=== PATIENT | male | born 1970 | race Caucasian/White ===

== ENCOUNTER 2020-07-13 07:55 | Outpatient (REF) | payer OTHER, SELFPAY ==
[2020-07-13 08:51] LABS: MANUAL DIFF FLAG NO
[2020-07-13 08:52] LABS: Basophils Percent Auto 0.7 % (0-2); Eosinophils Absolute Auto 0.2 X10*3/uL (0.0-0.4); Eosinophils Percent Auto 4.3 % (0-4); Hematocrit 45.1 % (42-52); Hemoglobin 15.5 g/dl (14.0-18.0); Lymphocytes Percent Auto 37.4 % (20-40); Mean Corpuscular HGB Conc 34.4 g/dl (31.0-36.0); Mean Corpuscular Hemoglobin 25.6 pg (27.0-33.0); Mean Corpuscular Volume 74.4 fL (80-98); Mean Platelet Volume 9.9 fL (9.4-12.4); Monocytes Absolute Auto 0.4 X10*3/uL (0.1-1.2); Monocytes Percent Auto 8.2 % (2-11); Neutrophils Absolute Auto 2.7 X10*3/uL (2.0-8.3); Neutrophils Percent Auto 49.4 % (45-73); Platelet Count 244 X10*3/uL (160-400); Red Blood Count 6.06 X10*6/uL (4.60-5.80); Red Cell Distribution Width 14.8 % (11.0-16.0); White Blood Count 5.4 X10*3/uL (4.8-10.8)
[2020-07-13 09:17] LABS: Alanine Aminotransferase 24 U/L (0-40); Albumin Level 4.7 g/dL (3.5-5.0); Alkaline Phosphatase 58 U/L (39-117); Anion Gap 13 (12-20); Aspartate Amino Transferase 22 U/L (5-37); Blood Urea Nitrogen 16 mg/dL (9-16); Calcium 9.4 mg/dL (8.4-10.2); Carbon Dioxide 25 mmol/L (22-29); Chloride 100 mmol/L (96-108); Cholesterol 200 mg/dL; Estimated Glomerular Filt Rate > 60; Glucose Fasting 309 mg/dL (60-99); HDL Cholesterol 49 mg/dL; LDL Cholesterol Calculated 129 mg/dl; Potassium 4.8 mmol/l (3.3-5.1); Sodium 133 mmol/L (135-145); Total Protein 7.7 g/dL (6.5-8.0); Triglycerides 112 mg/dL
[2020-07-13 09:21] LABS: Creatinine Urine 185.04 mg/dL; Microalbum/Creatinine Ratio Ur 95.6 ug/mg cr
[2020-07-13 09:33] LABS: Thyroid Stimulating Hormone 1.77 mIU/mL (0.32-4.0)
[2020-07-13 09:37] LABS: Estimated Average Glucose 298 mg/dL
== END 2020-07-13 07:56 | disposition home or self-care (01) ==
LOC: HO.LAB 07:55
PROVIDERS: PCP Internal Medicine; Visit Provider Internal Medicine
DX: Z00.01 Encounter for general adult medical examination with abnormal findings (principal); E11.65 Type 2 diabetes mellitus with hyperglycemia; E78.00 Pure hypercholesterolemia, unspecified; F32.89 Other specified depressive episodes
CPT/HCPCS: 36415; 80053; 80061; 82043; 83036; 84443; 85025

== ENCOUNTER 2021-03-17 06:27 | Outpatient (REF) | payer OTHER, SELFPAY ==
[2021-03-17 08:00] LABS: Estimated Average Glucose 223 mg/dL; Hemoglobin A1c % 9.4 %
[2021-03-17 08:20] LABS: Alanine Aminotransferase 31 U/L (0-40); Albumin Level 4.6 g/dL (3.5-5.0); Alkaline Phosphatase 66 U/L (39-117); Anion Gap 14 (12-20); Aspartate Amino Transferase 26 U/L (5-37); Bilirubin Total 0.7 mg/dL (0.0-1.0); Blood Urea Nitrogen 16 mg/dL (9-16); Calcium 9.5 mg/dL (8.4-10.2); Carbon Dioxide 25 mmol/L (22-29); Chloride 102 mmol/L (96-108); Cholesterol 179 mg/dL; Estimated Glomerular Filt Rate > 60; Glucose Random 240 mg/dL (60-115); HDL Cholesterol 41 mg/dL; LDL Cholesterol Calculated 110 mg/dl; Potassium 4.4 mmol/L (3.3-5.1); Sodium 137 mmol/L (135-145); Total Protein 7.3 g/dL (6.5-8.0); Triglycerides 144 mg/dL
== END 2021-03-17 06:28 | disposition home or self-care (01) ==
LOC: HO.LAB 06:27
PROVIDERS: PCP Internal Medicine; Visit Provider Internal Medicine
DX: E11.9 Type 2 diabetes mellitus without complications (principal); E78.00 Pure hypercholesterolemia, unspecified; I10 Essential (primary) hypertension; F33.41 Major depressive disorder, recurrent, in partial remission
CPT/HCPCS: 36415; 80053; 80061; 83036

== ENCOUNTER 2022-02-14 07:57 | Outpatient (REF) | payer MEDICAID, OTHER, SELFPAY ==
[2022-02-14 08:54] LABS: Estimated Average Glucose 289 mg/dL; Hemoglobin A1c % 11.7 %
[2022-02-14 09:25] LABS: Creatinine Urine 141.43 mg/dL
[2022-02-14 09:41] LABS: Alanine Aminotransferase 155 U/L (0-40); Albumin Level 4.9 g/dL (3.5-5.0); Alkaline Phosphatase 72 U/L (39-117); Anion Gap 16 (12-20); Aspartate Amino Transferase 72 U/L (5-37); Bilirubin Total 1.4 mg/dL (0.0-1.0); Blood Urea Nitrogen 25 mg/dL (9-16); Calcium 10.2 mg/dL (8.4-10.2); Carbon Dioxide 23 mmol/L (22-29); Chloride 95 mmol/L (96-108); Cholesterol 273 mg/dL; Estimated Glomerular Filt Rate > 60; Glucose Random 333 mg/dL (60-115); HDL Cholesterol 46 mg/dL; LDL Cholesterol Calculated 205 mg/dl; Potassium 4.4 mmol/L (3.3-5.1); Sodium 130 mmol/L (135-145); Triglycerides 111 mg/dL
== END 2022-02-14 07:58 | disposition home or self-care (01) ==
LOC: HO.LAB 07:57
PROVIDERS: PCP Internal Medicine; Visit Provider Internal Medicine
DX: E11.65 Type 2 diabetes mellitus with hyperglycemia (principal); F10.180 Alcohol abuse with alcohol-induced anxiety disorder
CPT/HCPCS: 36415; 80053; 80061; 82043; 83036

== ENCOUNTER 2022-05-15 09:51 | Emergency (ER) | payer OTHER, SELFPAY ==
--- NOTE | ~2022-05-15 | CT_ITS ---
EXAMINATION: CT ABDOMEN AND PELVIS WITHOUT CONTRAST CLINICAL INFORMATION: Upper abdominal tenderness. Elevated LFTs. COMPARISON: CT scan abdomen and pelvis 05/15/2022, 1:26 PM TECHNIQUE: Multidetector volumetric imaging was performed from the superior aspect of the liver through the pubic symphysis. Sagittal and coronal reformatted images were obtained on the technologist's workstation. This CT examination was performed using dose optimization techniques as appropriate, variously including the following: *Automated exposure control *Adjustment of mA and/or kV according to patient size (this includes techniques or standardized protocols for targeted exams where dose is matched to indication/reason for exam; i.e. extremities or head) *Use of iterative reconstruction technique DLP: 525 mGy-cm FINDINGS: LUNG BASES: Linear scar in the lingula. No pleural effusion. LIVER, GALLBLADDER, AND BILIARY TREE: Diffuse hypodensity of liver parenchyma due to fatty change. No focal liver lesion or intrahepatic bile duct dilatation. The gallbladder is unremarkable with no evidence of radiopaque gallstones, gallbladder wall thickening, or obvious pericholecystic inflammatory changes. PANCREAS: Redemonstration of subtle peripancreatic stranding around the tail and distal body similar prior CAT scan. Findings concerning for acute pancreatitis. No pancreatic mass or pancreatic duct dilatation. No pseudocyst formation. SPLEEN: Unremarkable. ADRENAL GLANDS: Unremarkable. KIDNEYS AND URETERS: The tiny stones in the left kidney seen on the CAT scan performed today not apparent on this exam. There is no renal or ureteral stone. There is no hydronephrosis. 1.5 cm cortical cyst right kidney. No follow-up imaging is recommended for simple renal cyst.. BLADDER: Unremarkable. GASTROINTESTINAL TRACT: The small and large bowel are unremarkable. The appendix is unremarkable. ABDOMINAL WALL: No significant hernia is appreciated. LYMPH NODES: Normal. VASCULAR: Unremarkable. PELVIC VISCERA: Unremarkable. OSSEOUS STRUCTURES: Degenerative spondylosis spine. CT/CT abdomen pelvis wo con IMPRESSION: 1. Subtle inflammatory stranding around the body and tail the pancreas consistent with pancreatitis. No significant change in appearance since prior CAT scan performed earlier today. 2. Diffuse fatty change of liver. Fleischner guidelines were followed.
--- NOTE | ~2022-05-15 | XR_ITS ---
EXAMINATION: XR CHEST CLINICAL INFORMATION: Cough, fever, rule out pneumonia COMPARISON: None TECHNIQUE: 2 views of the chest were obtained. FINDINGS: No significant abnormality is noted involving the heart, lungs, mediastinum, bony thorax or soft tissues. XR/XR chest 2V IMPRESSION: Unremarkable examination.
--- NOTE | ~2022-05-15 | CT_ITS ---
EXAMINATION: CT ABDOMEN AND PELVIS WITHOUT CONTRAST CLINICAL INFORMATION: Left-sided abdominal pain with nausea and diarrhea and fever. COMPARISON: CT of the abdomen and pelvis done on 03/19/2015. TECHNIQUE: Multidetector volumetric imaging was performed from the superior aspect of the liver through the pubic symphysis. Sagittal and coronal reformatted images were obtained on the technologist's workstation. This CT examination was performed using dose optimization techniques as appropriate, variously including the following: *Automated exposure control *Adjustment of mA and/or kV according to patient size (this includes techniques or standardized protocols for targeted exams where dose is matched to indication/reason for exam; i.e. extremities or head) *Use of iterative reconstruction technique DLP: 537 mGy-cm FINDINGS: LUNG BASES: Linear airspace disease is noted within the lingula, unchanged since prior study. There is no pleural effusion or pneumothorax present. There is no pericardial effusion present. The heart size is within normal limits. LIVER, GALLBLADDER, AND BILIARY TREE: Diffuse hepatic hypodensity consistent with hepatic steatosis is present. No superimposed focal liver lesion on this nonenhanced study. The gallbladder is unremarkable with no evidence of radiopaque gallstones, gallbladder wall thickening, or obvious pericholecystic inflammatory changes. PANCREAS: Subtle peripancreatic inflammatory stranding is noted around the tail and distal part of the body at left upper quadrant of the abdomen (116:4) with subtle thickening of the anterior left perirenal fascia. SPLEEN: Unremarkable. ADRENAL GLANDS: Unremarkable. KIDNEYS AND URETERS: The kidneys are normal in size, shape, and attenuation. No hydronephrosis or hydroureter or perinephric stranding on either side. The millimeter size punctate radiodensities are present within the left kidney, most consistent with tiny punctate nonobstructing calculi (171 and 220:4), new since prior study dated 03/19/2015. Previously documented right adrenal subtle calculi are no longer reproduced. Both ureters are decompressed. BLADDER: Unremarkable. GASTROINTESTINAL TRACT: The small and large bowel are unremarkable. The appendix is unremarkable. ABDOMINAL WALL: No significant hernia is appreciated. LYMPH NODES: Normal. VASCULAR: Unremarkable. PELVIC VISCERA: Unremarkable. There is no pelvic mass present. No evidence of any free fluid and/or free air. OSSEOUS STRUCTURES: No suspicious focal lesion. CT/CT abdomen pelvis wo con IMPRESSION: 1. Subtle inflammatory stranding is seen around the tail and distal part of the body of the pancreas at left upper quadrant of the abdomen with subtle thickening of the adjacent left anterior perirenal fascia. Clinical, lab correlation (serum lipase or amylase) as appropriate is recommended. 2. Diffuse fatty liver. 3. Tiny punctate a few radiopaque nonobstructing left renal calculi, new since prior study dated 03/19/2015.
[2022-05-15 09:58] VITALS: BP 121/85; PULSE 107; RESP 20; TEMP 36.6; O2SAT 98; BMI 30.4
[2022-05-15 13:02] LABS: MANUAL DIFF FLAG NO
[2022-05-15 13:06] LABS: Basophils Absolute Auto 0.1 X10*3/uL (0.0-0.2); Basophils Percent Auto 0.3 % (0-2); Hematocrit 48.1 % (42.0-52.0); Hemoglobin 17.1 g/dl (14.0-18.0); Imm Gran Abs Auto 0.12 X10*3/uL (0.00-0.03); Imm Gran Pct Auto 0.7 % (0.0-0.4); Lymphocytes Absolute Auto 1.3 X10*3/uL (1.2-4.9); Lymphocytes Percent Auto 7.9 % (20-40); Mean Corpuscular HGB Conc 35.6 g/dl (31.0-36.0); Mean Corpuscular Hemoglobin 25.8 pg (27.0-33.0); Mean Corpuscular Volume 72.5 fL (80.0-98.0); Mean Platelet Volume 9.5 fL (9.4-12.4); Monocytes Percent Auto 6.2 % (2-11); Neutrophils Absolute Auto 14.1 x10*3/uL (2.0-8.3); Neutrophils Percent Auto 84.9 % (45-73); Platelet Count 205 X10*3/uL (160-400); Red Blood Count 6.63 X10*6/uL (4.60-5.80); Red Cell Distribution Width 17.3 % (11.0-16.0); White Blood Count 16.6 X10*3/uL (4.8-10.8)
[2022-05-15 13:20] LABS: Alanine Aminotransferase 358 U/L (0-40); Alkaline Phosphatase 117 U/L (39-117); Anion Gap 25 (12-20); Aspartate Amino Transferase 255 U/L (5-37); Bilirubin Direct 2.3 mg/dL (0.0-0.5); Bilirubin Total 4.6 mg/dL (0.0-1.0); Blood Urea Nitrogen 15 mg/dL (9-16); Calcium 9.4 mg/dL (8.4-10.2); Carbon Dioxide 24 mmol/L (22-29); Chloride 85 mmol/L (96-108); Creatinine Clr Calc Pharmacy 66.9; Estimated Glomerular Filt Rate 56; Glucose Random 190 mg/dL (60-115); Magnesium 1.5 mg/dL (1.6-2.6); Potassium 4.2 mmol/L (3.3-5.1); Sodium 130 mmol/L (135-145); Total Protein 8.1 g/dL (6.5-8.0)
[2022-05-15 13:24] LABS: IDNOW Serial# 55D5AD1C
[2022-05-15 13:25] LABS: COVID-19 Test Negative (Negative)
--- NOTE | 2022-05-15 19:07 | ED_ITS ---
HPI - Abdominal Pain General Chief Complaint: Abdominal Pain Stated Complaint: L side abd pain Time Seen by Provider: 05/15/22 11:05 Source: patient and family (Maddie, ) Mode of arrival: ambulatory Limitations: language barrier History of Present Illness HPI narrative: 52-year-old male who presents emergency department for evaluation of abdominal pain, nausea, vomiting, intermittent fever as high as 103 degrees F and chills x3 days. Patient states that his abdominal pain came on gradually 3 days prior. He states that the pain is located in his upper abdomen. The pain is a constant, sharp, stabbing pain which waxes and wanes in intensity. States the pain can be as low as 3/10 and is currently 6/10. The pain does radiate to his upper back. He states that he has had persistent nausea with loss of appetite. States he has had several episodes of vomiting per day. Patient has had very little food to eat or drink over the past 3 days. The patient was told by his primary care doctor that he had a problem with his liver. The patient does drink 1 pt of whiskey 2 to 3 times a week. The patient's review of systems was positive for chills, rhinorrhea, sore throat, cough which is nonproductive. He states that he does feel short of breath. He had 1 loose stool yesterday. He denied bloody stools or dark black stools. MD elicited complaint: abdominal pain Onset (ago): day(s) (3) Pain Consistency: constant Location: epigastric, LUQ and RUQ Severity: moderate Pain scale (0-10): 6 Quality: stabbing Radiation: back (Mid upper back) Migration to: no migration Exacerbating factors: eating Relieving factors: nothing Associated symptoms: nausea, vomiting, diarrhea, fever, chills and other (Sore throat, rhinorrhea, dyspnea) Related Data Previous Rx's Medication Instructions Recorded omeprazole 20 mg capsule,delayed 20 mg PO DAILY 30 days #30 caps 05/15/22 release ondansetron 4 mg disintegrating 4 mg PO Q6-8H PRN nausea and 05/15/22 tablet vomiting #14 tabs Allergies Allergy/AdvReac Type Severity Reaction Status Date / Time Penicillins [PENICILLINS] Allergy Mild RASH Verified 05/15/22 19:49 sildenafil [Viagra] AdvReac Unknown flush, Verified 05/15/22 19:49 headaches PENICILLIN Allergy Unknown rash Uncoded 06/02/18 00:00 Review of Systems Review of Systems Yes all other systems are reviewed and are negative [facility] Past Medical History [facility] Narrative: Past medical history: Diabetes mellitus, hypertension, hyperlipidemia. Past curry rgical history: None. Social history: Patient denies tobacco use. The patient states that he drinks 1 pt of whiskey 2 to 3 times a week. He denies drug use. He is and he is here with his . Social History Social History Advance Directives: No Advance Directives Information Provided: Yes Physical Exam ED Vital Signs: Vital Signs - 24 hr 05/15/22 09:58 05/15/22 19:31 Temperature 97.8 F 98.3 F Pulse Rate 107 H 100 Respiratory Rate 20 18 Blood Pressure 121/85 135/90 H Pulse Oximetry 98 98 Oxygen Delivery Method Room Air Room Air BMI result Body Mass Index 30.4 Const Other: Awake, alert, male patient, very pleasant cooperative, answers all questions appropriately, does not appear to be in distress, does have ketotic odor to his breath HENMT Head: Yes normal to inspection, Yes normocephalic and Yes atraumatic Ears: external ears normal General nose exam: Normal external nose present Face and sinus: Yes normal facial exam Mouth: Normal oral and palatal mucosa present Throat: Yes posterior oropharynx normal Eyes General: appearance normal, both eyes and all related structures Pupils: Equal, round and reactive pupils present Neck Neck: Yes normal visual inspection, Yes no lymphadenopathy, Yes trachea midline and Yes supple Chest Chest palpation & inspection: normal inspection of the chest and normal palpation of entire chest wall Resp Effort & Inspection: normal respiratory effort and able to speak in complete sentences Auscultation: clear to auscultation bilaterally Cardio Rate: regular rate Rhythm: regular rhythm Heart sounds: S1 normal heart sound present, S2 normal heart sound present and no murmurs GI Inspection: Yes normal to inspection Palpation (GI): Soft to palpation, Tenderness to palpation present (GI) in the epigastrum (Mild), in the LLQ (Moderate) and in the RUQ (Mild) and no guarding Auscultation: normal bowel sounds General: Yes no CVA tenderness Back/Spine/Pelvis Back: no CVA tenderness Skin General skin exam: no rashes or lesions noted Neuro Cranial nerves: Yes CN's II-XII intact bilaterally and Yes Equal, round and reactive pupils present Cognition (Neuro): normal cognition Motor exam (neuro): 5/5 motor strength present throughout Extrem General: Yes normal to inspection Psych Appearance: grossly normal Speech and movement: Normal speech and movement present Affect: normal affect Attitude: cooperative Thought process: Normal thought process present Thought content: Normal thought content present Course Course Course Narrative: 52-year-old male who presents to emergency department for evaluation of 3 days of constant, upper abdominal pain radiating to his back associated with fever, chills, rhinorrhea, cough, sore throat, nausea, vomiting and loss of appetite with poor fluid and food intake over the past 3 days. Patient does drink 1 pt of whiskey 2 to 3 times a week and was told by his PCP 1 month prior that he has a problem with his liver. Initial vital signs did reveal an elevated pulse of 107 otherwise were unremarkable. Physical examination did reveal mild right upper and epigastric tenderness with moderate left upper quadrant tenderness. 2152: Laboratory evaluation: WBC elevated 16,200. AST, ALT elevated 255 and 358. Bilirubin elevated 4.6. Lipase elevated 96. Lactate elevated 2.2. COVID-19 was negative. Magnesium low 1.5. Radiology evaluation: CT scan of the abdomen pelvis without IV contrast consistent with mild pancreatitis. Patient's presentation is consistent with mild pancreatitis and I suspect that he also has gastritis, most likely secondary to his alcohol use disorder. The patient did feel better with the above treatment. The patient will be started on Prilosec 20 mg once a day. He was advised to stop drinking alcohol and he was given outpatient detox numbers to call to try to get into a detox program. Patient was discharged home with printed and verbal instructions. MDM - Abdominal Pain Lab Data Result diagrams: 05/15/22 12:57 05/15/22 12:57 Labs: Lab Results 05/15/22 05/15/22 05/15/22 Range/Units 12:55 12:57 12:57 WBC 16.6 H (4.8-10.8) X10*3/uL RBC 6.63 H (4.60-5.80) X10*6/uL Hgb 17.1 (14.0-18.0) g/dl Hct 48.1 (42.0-52.0) % MCV 72.5 L (80.0-98.0) fL MCH 25.8 L (27.0-33.0) pg MCHC 35.6 (31.0-36.0) g/dl RDW 17.3 H (11.0-16.0) % Plt Count 205 (160-400) X10*3/uL MPV 9.5 (9.4-12.4) fL Immature Gran % (Auto) 0.7 H (0.0-0.4) % Neut % (Auto) 84.9 H (45-73) % Lymph % (Auto) 7.9 L (20-40) % [place] % (Auto) 6.2 (2-11) % Eos % (Auto) 0.0 (0-4) % Baso % (Auto) 0.3 (0-2) % Lymph # (Auto) 1.3 (1.2-4.9) X10*3/uL [place] # (Auto) 1.0 (0.1-1.2) X10*3/uL Eos # (Auto) 0.0 (0.0-0.4) X10*3/uL Baso # (Auto) 0.1 (0.0-0.2) X10*3/uL Abs Immat Gran (auto) 0.12 H (0.00-0.03) X10*3/uL Absolute Neuts (auto) 14.1 H (2.0-8.3) x10*3/uL Absolute Nucleated RBC 0.000 (0.0-0.012) X10*3/uL Nucleated RBC % (auto) 0.0 (0.0-0.2) /100WBC Sodium 130 L (135-145) mmol/L Potassium 4.2 (3.3-5.1) mmol/L Chloride 85 L (96-108) mmol/L Carbon Dioxide 24 (22-29) mmol/L Anion Gap 25 H (12-20) BUN 15 (9-16) mg/dL Creatinine 1.34 (0.5-1.4) mg/dL Estim Creat Clear Calc 66.9 Estimated GFR 56 Random Glucose 190 H D (60-115) mg/dL Lactic Acid (0.5-2.0) mmol/L Calcium 9.4 D (8.4-10.2) mg/dL Magnesium 1.5 L (1.6-2.6) mg/dL Total Bilirubin 4.6 H (0.0-1.0) mg/dL Direct Bilirubin 2.3 H (0.0-0.5) mg/dL AST 255 H (5-37) U/L ALT 358 H (0-40) U/L Alkaline Phosphatase 117 D (39-117) U/L Total Protein 8.1 H (6.5-8.0) g/dL Albumin 4.0 (3.5-5.0) g/dL Lipase 96 H (8-78) U/L Urine Color Urine Appearance Urine pH (5.0-8.0) Ur Specific [place] (1.005-1.025) Urine Protein (NEG-TRACE) MG/DL Urine Glucose (UA) (NEG) MG/DL Urine Ketones (NEG) MG/DL Urine Blood (NEG) Urine Nitrite (NEG) Ur Leukocyte Esterase (NEG) Urine RBC (0) /HPF Urine WBC (0-4) /HPF Ur Squamous Epith Cells /LPF Urine Bacteria /LPF COVID-19 ([facility]JA) Negative (Negative) COVID-19 Clin Com See Note 05/15/22 05/15/22 Range/Units 19:35 19:44 WBC (4.8-10.8) X10*3/uL RBC (4.60-5.80) X10*6/uL Hgb (14.0-18.0) g/dl Hct (42.0-52.0) % MCV (80.0-98.0) fL MCH (27.0-33.0) pg MCHC (31.0-36.0) g/dl RDW (11.0-16.0) % Plt Count (160-400) X10*3/uL MPV (9.4-12.4) fL Immature Gran % (Auto) (0.0-0.4) % Neut % (Auto) (45-73) % Lymph % (Auto) (20-40) % [place] % (Auto) (2-11) % Eos % (Auto) (0-4) % Baso % (Auto) (0-2) % Lymph # (Auto) (1.2-4.9) X10*3/uL [place] # (Auto) (0.1-1.2) X10*3/uL Eos # (Auto) (0.0-0.4) X10*3/uL Baso # (Auto) (0.0-0.2) X10*3/uL Abs Immat Gran (auto) (0.00-0.03) X10*3/uL Absolute Neuts (auto) (2.0-8.3) x10*3/uL Absolute Nucleated RBC (0.0-0.012) X10*3/uL Nucleated RBC % (auto) (0.0-0.2) /100WBC Sodium (135-145) mmol/L Potassium (3.3-5.1) mmol/L Chloride (96-108) mmol/L Carbon Dioxide (22-29) mmol/L Anion Gap (12-20) BUN (9-16) mg/dL Creatinine (0.5-1.4) mg/dL Estim Creat Clear Calc Estimated GFR Random Glucose (60-115) mg/dL Lactic Acid 2.2 H* (0.5-2.0) mmol/L Calcium (8.4-10.2) mg/dL Magnesium (1.6-2.6) mg/dL Total Bilirubin (0.0-1.0) mg/dL Direct Bilirubin (0.0-0.5) mg/dL AST (5-37) U/L ALT (0-40) U/L Alkaline Phosphatase (39-117) U/L Total Protein (6.5-8.0) g/dL Albumin (3.5-5.0) g/dL Lipase (8-78) U/L Urine Color YELLOW Urine Appearance CLEAR Urine pH 6.0 (5.0-8.0) Ur Specific [place] 1.020 (1.005-1.025) Urine Protein NEG (NEG-TRACE) MG/DL Urine Glucose (UA) >=1000 H (NEG) MG/DL Urine Ketones >=80 (NEG) MG/DL Urine Blood TRACE (NEG) Urine Nitrite NEG (NEG) Ur Leukocyte Esterase NEG (NEG) Urine RBC 1-4 (0) /HPF Urine WBC 0 (0-4) /HPF Ur Squamous Epith Cells NONE /LPF Urine Bacteria NONE /LPF COVID-19 ([facility]) (Negative) COVID-19 Clin Com Discharge Plan Discharge Clinical Impression: Alcohol use disorder, severe, dependence Pancreatitis Qualifiers: Chronicity: acute Pancreatitis type: alcohol induced Acute pancreatitis complication: unspecified Qualified Code(s): K85.20 - Alcohol induced acute pancreatitis without necrosis or infection Gastritis Qualifiers: Gastritis type: alcoholic Chronicity: acute Gastritis bleeding: without bleeding Qualified Code(s): K29.20 - Alcoholic gastritis without bleeding Patient Disposition: Home, Self-Care Instructions: Gastritis (ED), Pancreatitis (ED), Alcohol Use Disorder (ED) Additional Instructions: Discharge instructions Your blood work did reveal abnormal liver tests (elevated AST, ALT and bilirubin). You had a slight elevation in your pancreatic enzyme, lipase. Your CT scan did reveal mild inflammation around your pancreas and this is probably was causing your symptoms. I also suspect that you have inflammation of your stomach which is also causing her symptoms. Take Take Prilosec (omeprazole) 20 mg pills, 1 pill once a day for 1 month. This medication shuts off your acid production and let us the inflammation in your esophagus and stomach heal. Take Zofran ODT 4 mg pills, 1 pill dissolved in your mouth every 8 hours as needed for nausea and vomiting. You need to get help with your alcohol use disorder. We are sending you home with a list of detox programs, you should call these detox programs to try to get into 1 of them to help stop drinking. Follow-up with your doctor in 2 days. Please return to the emergency department if your symptoms get worse or if you develop any symptoms that are concerning to you. Prescriptions: New omeprazole 20 mg capsule,delayed release(DR/EC) 20 mg PO DAILY 30 Days Qty: 30 0RF ondansetron 4 mg tablet,disintegrating 4 mg PO Q6-8H PRN (Reason: nausea and vomiting) Qty: 14 0RF Print Language: Romanian
[2022-05-15 19:08] LABS: Lipase 96 U/L (8-78)
[2022-05-15 19:31] VITALS: BP 135/90; PULSE 100; RESP 18; TEMP 36.8; O2SAT 98
[2022-05-15] MEDS: 0.9 % Sodium Chloride 1,000 ML 999 ML IV ×2 (19:50→19:51)
[2022-05-15] MEDS: Ketorolac Tromethamine 15 MG/ML VIAL IVPUSH (19:50)
[2022-05-15] MEDS: ondansetron HCL 4 MG/2 ML VIAL IVPUSH (19:50)
[2022-05-15 19:54] LABS: Appearance Urine CLEAR; Color Urine YELLOW; Glucose Urine UA >=1000 MG/DL (NEG); Leukocyte Esterase Urine NEG (NEG); Nitrite Urine NEG (NEG); UACC Culture Trigger NO; Urine Blood TRACE (NEG); Urine Ketones >=80 MG/DL (NEG); Urine Protein NEG (NEG-TRACE)
[2022-05-15 19:58] LABS: WBC Urine 0 /HPF (0-4)
[2022-05-15 20:07] LABS: Lactic Acid 2.2 mmol/L (0.5-2.0)
[2022-05-15 21:49] LABS: Reflex Lactate? Lactic Acid Added
== END 2022-05-15 23:03 | disposition home or self-care (01) ==
PROVIDERS: Physician Assistant; Emergency Provider Emergency Medicine Emergency Medical Services; PCP Internal Medicine
DX: F10.20 Alcohol dependence, uncomplicated (principal); Y90.9 Presence of alcohol in blood, level not specified; K85.20 Alcohol induced acute pancreatitis without necrosis or infection; K29.20 Alcoholic gastritis without bleeding; R10.9 Unspecified abdominal pain; Z20.822 Contact with and (suspected) exposure to COVID-19; E11.9 Type 2 diabetes mellitus without complications; I10 Essential (primary) hypertension; E78.5 Hyperlipidemia, unspecified
CPT/HCPCS: 36415; 71046; 74176; 80048; 80076; 81001; 83605; 83690; 83735; 85025; 87040; 87635; 96374; 96375; 99284; J1885; J2405

== ENCOUNTER 2022-08-01 09:46 | Outpatient (REF) | payer OTHER, SELFPAY ==
[2022-08-01 10:45] LABS: Estimated Average Glucose 255 mg/dL; Hemoglobin A1c % 10.5 %
[2022-08-01 11:16] LABS: Alanine Aminotransferase 18 U/L (0-40); Albumin Level 4.6 g/dL (3.5-5.0); Alkaline Phosphatase 62 U/L (39-117); Anion Gap 17 (12-20); Aspartate Amino Transferase 19 U/L (5-37); Bilirubin Total 0.6 mg/dL (0.0-1.0); Blood Urea Nitrogen 25 mg/dL (9-16); Calcium 9.8 mg/dL (8.4-10.2); Carbon Dioxide 25 mmol/L (22-29); Chloride 99 mmol/L (96-108); Cholesterol 144 mg/dL; Estimated Glomerular Filt Rate > 60; Glucose Random 149 mg/dL (60-115); HDL Cholesterol 49 mg/dL; LDL Cholesterol Calculated 76 mg/dl; Potassium 4.3 mmol/L (3.3-5.1); Sodium 137 mmol/L (135-145); Total Protein 7.6 g/dL (6.5-8.0); Triglycerides 95 mg/dL
== END 2022-08-01 09:47 | disposition home or self-care (01) ==
LOC: HO.LAB 09:46
PROVIDERS: PCP Internal Medicine; Visit Provider Internal Medicine
DX: E11.65 Type 2 diabetes mellitus with hyperglycemia (principal); E78.00 Pure hypercholesterolemia, unspecified; F10.11 Alcohol abuse, in remission; I10 Essential (primary) hypertension
CPT/HCPCS: 36415; 80053; 80061; 83036

== ENCOUNTER 2022-11-13 15:34 | Emergency (ER) | payer MEDICAID, OTHER, SELFPAY ==
--- NOTE | ~2022-11-13 | XR_ITS ---
EXAMINATION: XR CHEST CLINICAL INFORMATION: Cough and chest tightness COMPARISON: May 2022. TECHNIQUE: 2 views of the chest were obtained. FINDINGS: No significant abnormality is noted involving the heart, lungs, mediastinum, bony thorax or soft tissues. Thoracic spondylitic changes observed. XR/XR chest 2V IMPRESSION: No evidence for acute process.
[2022-11-13 15:41] VITALS: BP 105/74; PULSE 110; RESP 20; TEMP 37; O2SAT 98
--- NOTE | 2022-11-13 15:44 | ED_ITS ---
HPI - General Adult General Chief complaint: Upper Respiratory Symptoms <SUREKHA Delgadillo - Last Filed: 11/13/22 15:47> Stated complaint: Chest pain/ Dizziness <SUREKHA Delgadillo - Last Filed: 11/13/22 15:47> Time Seen by Provider: 11/13/22 22:07 <SUREKHA Delgadillo - Last Filed: 11/13/22 15:47> Source: patient <Maribel Matias MD - Last Filed: 11/14/22 00:38> Mode of arrival: ambulatory <Maribel Matias MD - Last Filed: 11/14/22 00:38> Limitations: no limitations <Maribel Matias MD - Last Filed: 11/14/22 00:38> History of Present Illness HPI narrative: Patient come to the emergency room complaining 3 days of generalized malaise, congestion, bilateral chest pressure, no chest pain. Patient also having cough. Patient denies any nausea vomiting or diarrhea. <Maribel Matias MD - Last Filed: 11/14/22 00:38> Related Data Home medications: Previous Rx's Medication Instructions Recorded omeprazole 20 mg capsule,delayed 20 mg PO DAILY 30 days #30 caps 05/15/22 release ondansetron 4 mg disintegrating 4 mg PO Q6-8H PRN nausea and 05/15/22 tablet vomiting #14 tabs glucagon 1 mg solution for 1 mg subcut Q20M PRN hypoglycemia 11/14/22 injection (Glucagon Emergency Kit) #1 ea <SUREKHA Delgadillo - Last Filed: 11/13/22 15:47> Allergies/adverse reactions: Allergies Allergy/AdvReac Type Severity Reaction Status Date / Time Penicillins [PENICILLINS] Allergy Mild RASH Verified 05/15/22 19:49 sildenafil [Viagra] AdvReac Unknown flush, Verified 05/15/22 19:49 headaches PENICILLIN Allergy Unknown rash Uncoded 06/02/18 00:00 <SUREKHA Delgadillo - Last Filed: 11/13/22 15:47> Review of Systems Review of Systems: Constitutional : No Weight loss, No Fever, No Chills, No Night Sweats, complaining of fatigue and generalized malaise ENT/Mouth : No Hearing loss, No Ear Pain, No Nasal Congestion, No Sinus Pain, No Hoarseness, No sore throat, No Rhinorrhea, No Swallowing Difficulty Eyes: No Eye Pain, No Swelling, No Redness, No Foreign Body, No Discharge, No Vision Changes Cardiovascular : No Chest Pain complaining of chest pressure, No SOB, No Dyspnea on Exertion, No Orthopnea, No Edema, No Palpitations Respiratory : No Cough, No Sputum, No Wheezing, No Smoke Exposure, No Dyspnea Gastrointestinal : No Nausea, No Vomiting, No Diarrhea, No Constipation, No abdominal Pain, No Hematochezia, No Melena Genitourinary : no irregular bleeding, No Dysuria, No Urinary Frequency, No Hematuria, No Urinary Incontinence, No Urgency, No Flank Pain, No Urinary Flow Changes, No Hesitancy Musculoskeletal : No joint pain, No Myalgias, No Joint Swelling Skin : No Skin Lesions, No rash Neuro : No Weakness, No Numbness, No Paresthesias, No Loss of Consciousness, No Dizziness, No Headache Psych : No Anxiety/Panic, No Depression, No SI/HI/AH/VH, No Social Issues, Heme/Lymph: No Bruising, No Bleeding,No Lymphadenopathy Endocrine : No Polyuria, No Polydipsia, No Temperature Intolerance <Maribel Matias MD - Last Filed: 11/14/22 00:38> [facility] Past Medical History Medical History: Medical History (Updated 11/14/22 @ 00:37 by Maribel Matias MD) Type 2 diabetes mellitus <SUREKHA Delgadillo - Last Filed: 11/13/22 15:47> Social History Social History: Social History Advance Directives: No Advance Directives Information Provided: No <SUREKHA Delgadillo - Last Filed: 11/13/22 15:47> Physical Exam ED Vital Signs: Vital Signs - 24 hr 11/13/22 15:41 11/13/22 21:33 Temperature 98.6 F 98.1 F Pulse Rate 110 H 101 H Respiratory Rate 20 18 Blood Pressure 105/74 94/70 Pulse Oximetry 98 98 Oxygen Delivery Method Room Air Room Air BMI result Body Mass Index 30.0 <SUREKHA Delgadillo - Last Filed: 11/13/22 15:47> Vital Signs - 24 hr 11/13/22 15:41 11/13/22 21:33 Temperature 98.6 F 98.1 F Pulse Rate 110 H 101 H Respiratory Rate 20 18 Blood Pressure 105/74 94/70 Pulse Oximetry 98 98 Oxygen Delivery Method Room Air Room Air BMI result Body Mass Index 30.0 <Maribel Matias MD - Last Filed: 11/14/22 00:38> Const Other: Appearance: Alert. Oriented X3. No acute distress. Well-appearing Eyes: Pupils equal, round and reactive to light. ENT: Pharynx normal. Neck: Normal inspection. Neck supple. No lymph nodes noted. No crepitus CVS: Normal heart rate and rhythm. Pulses normal. Normal S1 and S2 Respiratory: No respiratory distress. Breath sounds normal. No Wheezing. No rales Abdomen: Soft and nontender. No rigidity. No distention. Skin: Skin warm and dry. Normal skin color. Normal skin turgor. Extremities: No lower extremity edema. No Lacerations. No Rash Neuro: Oriented X 3. No motor deficit. No sensory deficit. Moving all extremities. No slurred speech. CN 2 through 12 grossly intact Psych: calm, cooperative, normal affect <Maribel Matias MD - Last Filed: 11/14/22 00:38> Course Course Course Narrative: RME-15:45PM - 52yoM c PMHx of DM, HTN who is Yoruba-speaking presenting to the ER with his at bedside with complaints of upper respiratory symptoms which include generalized fatigue, malaise, body aches, myalgias, nasal congestion/rhinorrhea, cough with chest tightness and shortness of breath for the past 3 days worse today. Denies recent travel or sick contacts. Denies any nausea/vomiting, paresthesias, dyspnea on exertion, orthopnea, palpitations, abdominal pain, lower extremity edema or calf tenderness or any other symptoms complaints or concerns at this time. Plan: Labs, EKG, chest x-ray and COVID/RSV/flu swab and a POC. Patient sent to the waiting room to be evaluated in the ED. <SUREKHA Delgadillo - Last Filed: 11/13/22 15:47> Medications Administered Discontinued Medications Generic Name Dose Route Start Last Admin Trade Name Freq PRN Reason Stop Dose Admin Sodium Chloride 1,000 mls @ 999 mls/hr 11/13/22 22:19 11/13/22 23:57 Ns IVCONT 11/13/22 23:19 Infused .Q1H1M ONE Infusion <SUREKHA Delgadillo - Last Filed: 11/13/22 15:47> Medications Administered Discontinued Medications Generic Name Dose Route Start Last Admin Trade Name Krysta PRN Reason Stop Dose Admin Sodium Chloride 1,000 mls @ 999 mls/hr 11/13/22 22:19 11/13/22 23:57 Ns IVCONT 11/13/22 23:19 Infused .Q1H1M ONE Infusion <Maribel Matias MD - Last Filed: 11/14/22 00:38> Medical Decision Making Medical Decision Making [facility] Narrative: -patient has a blood sugar of 379. Patient will be receiving IV fluids and also 5 units of insulin. Patient states he takes 26 units of Lantus at night, no other insulin. Patient also takes daily metformin. -troponin x2 negative, chest x-ray negative for any acute process -EKG my interpretation colon, sinus tachycardia, heart rate 103, no ST segment depression or elevation, no T-wave inversion, QTC 461 -patient received IV fluids, no insulin, patient's blood glucose 233. Patient asymptomatic. -patient takes insulin Lantus 25 units at bedtime, patient instructed to increase his Lantus to 28 units. <Maribel Matias MD - Last Filed: 11/14/22 00:38> Differential Diagnosis Differential Diagnoses: The differential diagnosis associated with the presentation includes (Viral syndrome, COVID, influenza) <Maribel Matias MD - Last Filed: 11/14/22 00:38> Lab Data [facility] Lab Attestation statement: I reviewed the patient's lab results. <Maribel Matias MD - Last Filed: 11/14/22 00:38> Result Diagrams: 11/13/22 15:57 11/13/22 15:57 <SUREKHA Delgadillo - Last Filed: 11/13/22 15:47> Labs: Lab Results 11/13/22 11/13/22 11/13/22 Range/Units 15:57 15:57 15:57 WBC 6.7 (4.8-10.8) X10*3/uL RBC 5.48 (4.60-5.80) X10*6/uL Hgb 13.9 L (14.0-18.0) g/dl Hct 39.9 L (42.0-52.0) % MCV 72.8 L (80.0-98.0) fL MCH 25.4 L (27.0-33.0) pg MCHC 34.8 (31.0-36.0) g/dl RDW 16.5 H (11.0-16.0) % Plt Count 183 (160-400) X10*3/uL MPV 9.6 (9.4-12.4) fL Immature Gran % (Auto) 0.3 (0.0-0.4) % Neut % (Auto) 63.5 (45-73) % Lymph % (Auto) 27.1 (20-40) % Bureau % (Auto) 8.4 (2-11) % Eos % (Auto) 0.6 (0-4) % Baso % (Auto) 0.1 (0-2) % Lymph # (Auto) 1.8 (1.2-4.9) X10*3/uL Bureau # (Auto) 0.6 (0.1-1.2) X10*3/uL Eos # (Auto) 0.0 (0.0-0.4) X10*3/uL Baso # (Auto) 0.0 (0.0-0.2) X10*3/uL Abs Immat Gran (auto) 0.02 (0.00-0.03) X10*3/uL Absolute Neuts (auto) 4.2 (2.0-8.3) x10*3/uL Absolute Nucleated RBC 0.000 (0.0-0.012) X10*3/uL Nucleated RBC % (auto) 0.0 (0.0-0.2) /100WBC Sodium 129 L (135-145) mmol/L Potassium 4.1 (3.3-5.1) mmol/L Chloride 85 L (96-108) mmol/L Carbon Dioxide 22 (22-29) mmol/L Anion Gap 26 H (12-20) BUN 28 H (9-16) mg/dL Creatinine 1.80 H (0.5-1.4) mg/dL Estim Creat Clear Calc 46.1 Estimated GFR 40 POC Glucose (60-115) mg/dL Random Glucose 376 H* (60-115) mg/dL Calcium 9.9 (8.4-10.2) mg/dL Magnesium 1.6 (1.6-2.6) mg/dL Total Bilirubin 1.6 H (0.0-1.0) mg/dL AST 33 (5-37) U/L ALT 35 (0-40) U/L Alkaline Phosphatase 68 (39-117) U/L Troponin I High Sens 5.3 (<3.5-35.0) ng/L B-Natriuretic Peptide (<100) pg/mL Total Protein 7.8 (6.5-8.0) g/dL Albumin 4.8 (3.5-5.0) g/dL Influenza Type A (PCR) (Negative) Influenza Type B (PCR) (Negative) RSV RNA Qual (PCR) (Negative) SARS-CoV-2 RNA (RT-PCR) (Negative) 11/13/22 11/13/22 11/13/22 Range/Units 15:57 15:57 19:01 WBC (4.8-10.8) X10*3/uL RBC (4.60-5.80) X10*6/uL Hgb (14.0-18.0) g/dl Hct (42.0-52.0) % MCV (80.0-98.0) fL MCH (27.0-33.0) pg MCHC (31.0-36.0) g/dl RDW (11.0-16.0) % Plt Count (160-400) X10*3/uL MPV (9.4-12.4) fL Immature Gran % (Auto) (0.0-0.4) % Neut % (Auto) (45-73) % Lymph % (Auto) (20-40) % Bureau % (Auto) (2-11) % Eos % (Auto) (0-4) % Baso % (Auto) (0-2) % Lymph # (Auto) (1.2-4.9) X10*3/uL Bureau # (Auto) (0.1-1.2) X10*3/uL Eos # (Auto) (0.0-0.4) X10*3/uL Baso # (Auto) (0.0-0.2) X10*3/uL Abs Immat Gran (auto) (0.00-0.03) X10*3/uL Absolute Neuts (auto) (2.0-8.3) x10*3/uL Absolute Nucleated RBC (0.0-0.012) X10*3/uL Nucleated RBC % (auto) (0.0-0.2) /100WBC Sodium (135-145) mmol/L Potassium (3.3-5.1) mmol/L Chloride (96-108) mmol/L Carbon Dioxide (22-29) mmol/L Anion Gap (12-20) BUN (9-16) mg/dL Creatinine (0.5-1.4) mg/dL Estim Creat Clear Calc Estimated GFR POC Glucose (60-115) mg/dL Random Glucose (60-115) mg/dL Calcium (8.4-10.2) mg/dL Magnesium (1.6-2.6) mg/dL Total Bilirubin (0.0-1.0) mg/dL AST (5-37) U/L ALT (0-40) U/L Alkaline Phosphatase (39-117) U/L Troponin I High Sens 4.7 (<3.5-35.0) ng/L B-Natriuretic Peptide < 10 (<100) pg/mL Total Protein (6.5-8.0) g/dL Albumin (3.5-5.0) g/dL Influenza Type A (PCR) NEGATIVE (Negative) Influenza Type B (PCR) NEGATIVE (Negative) RSV RNA Qual (PCR) NEGATIVE (Negative) SARS-CoV-2 RNA (RT-PCR) NEGATIVE (Negative) 11/13/22 Range/Units 22:47 WBC (4.8-10.8) X10*3/uL RBC (4.60-5.80) X10*6/uL Hgb (14.0-18.0) g/dl Hct (42.0-52.0) % MCV (80.0-98.0) fL MCH (27.0-33.0) pg MCHC (31.0-36.0) g/dl RDW (11.0-16.0) % Plt Count (160-400) X10*3/uL MPV (9.4-12.4) fL Immature Gran % (Auto) (0.0-0.4) % Neut % (Auto) (45-73) % Lymph % (Auto) (20-40) % Bureau % (Auto) (2-11) % Eos % (Auto) (0-4) % Baso % (Auto) (0-2) % Lymph # (Auto) (1.2-4.9) X10*3/uL Bureau # (Auto) (0.1-1.2) X10*3/uL Eos # (Auto) (0.0-0.4) X10*3/uL Baso # (Auto) (0.0-0.2) X10*3/uL Abs Immat Gran (auto) (0.00-0.03) X10*3/uL Absolute Neuts (auto) (2.0-8.3) x10*3/uL Absolute Nucleated RBC (0.0-0.012) X10*3/uL Nucleated RBC % (auto) (0.0-0.2) /100WBC Sodium (135-145) mmol/L Potassium (3.3-5.1) mmol/L Chloride (96-108) mmol/L Carbon Dioxide (22-29) mmol/L Anion Gap (12-20) BUN (9-16) mg/dL Creatinine (0.5-1.4) mg/dL Estim Creat Clear Calc Estimated GFR POC Glucose 233 H (60-115) mg/dL Random Glucose (60-115) mg/dL Calcium (8.4-10.2) mg/dL Magnesium (1.6-2.6) mg/dL Total Bilirubin (0.0-1.0) mg/dL AST (5-37) U/L ALT (0-40) U/L Alkaline Phosphatase (39-117) U/L Troponin I High Sens (<3.5-35.0) ng/L B-Natriuretic Peptide (<100) pg/mL Total Protein (6.5-8.0) g/dL Albumin (3.5-5.0) g/dL Influenza Type A (PCR) (Negative) Influenza Type B (PCR) (Negative) RSV RNA Qual (PCR) (Negative) SARS-CoV-2 RNA (RT-PCR) (Negative) <SUREKHA Delgadillo - Last Filed: 11/13/22 15:47> Lab Results 11/13/22 11/13/2223 Range/Units 15:57 15:57 15:57 WBC 6.7 (4.8-10.8) X10*3/uL RBC 5.48 (4.60-5.80) X10*6/uL Hgb 13.9 L (14.0-18.0) g/dl Hct 39.9 L (42.0-52.0) % MCV 72.8 L (80.0-98.0) fL MCH 25.4 L (27.0-33.0) pg MCHC 34.8 (31.0-36.0) g/dl RDW 16.5 H (11.0-16.0) % Plt Count 183 (160-400) X10*3/uL MPV 9.6 (9.4-12.4) fL Immature Gran % (Auto) 0.3 (0.0-0.4) % Neut % (Auto) 63.5 (45-73) % Lymph % (Auto) 27.1 (20-40) % Bureau % (Auto) 8.4 (2-11) % Eos % (Auto) 0.6 (0-4) % Baso % (Auto) 0.1 (0-2) % Lymph # (Auto) 1.8 (1.2-4.9) X10*3/uL Bureau # (Auto) 0.6 (0.1-1.2) X10*3/uL Eos # (Auto) 0.0 (0.0-0.4) X10*3/uL Baso # (Auto) 0.0 (0.0-0.2) X10*3/uL Abs Immat Gran (auto) 0.02 (0.00-0.03) X10*3/uL Absolute Neuts (auto) 4.2 (2.0-8.3) x10*3/uL Absolute Nucleated RBC 0.000 (0.0-0.012) X10*3/uL Nucleated RBC % (auto) 0.0 (0.0-0.2) /100WBC Sodium 129 L (135-145) mmol/L Potassium 4.1 (3.3-5.1) mmol/L Chloride 85 L (96-108) mmol/L Carbon Dioxide 22 (22-29) mmol/L Anion Gap 26 H (12-20) BUN 28 H (9-16) mg/dL Creatinine 1.80 H (0.5-1.4) mg/dL Estim Creat Clear Calc 46.1 Estimated GFR 40 POC Glucose (60-115) mg/dL Random Glucose 376 H* (60-115) mg/dL Calcium 9.9 (8.4-10.2) mg/dL Magnesium 1.6 (1.6-2.6) mg/dL Total Bilirubin 1.6 H (0.0-1.0) mg/dL AST 33 (5-37) U/L ALT 35 (0-40) U/L Alkaline Phosphatase 68 (39-117) U/L Troponin I High Sens 5.3 (<3.5-35.0) ng/L B-Natriuretic Peptide (<100) pg/mL Total Protein 7.8 (6.5-8.0) g/dL Albumin 4.8 (3.5-5.0) g/dL Influenza Type A (PCR) (Negative) Influenza Type B (PCR) (Negative) RSV RNA Qual (PCR) (Negative) SARS-CoV-2 RNA (RT-PCR) (Negative) 11/13/22 11/13/22 11/13/22 Range/Units 15:57 15:57 19:01 WBC (4.8-10.8) X10*3/uL RBC (4.60-5.80) X10*6/uL Hgb (14.0-18.0) g/dl Hct (42.0-52.0) % MCV (80.0-98.0) fL MCH (27.0-33.0) pg MCHC (31.0-36.0) g/dl RDW (11.0-16.0) % Plt Count (160-400) X10*3/uL MPV (9.4-12.4) fL Immature Gran % (Auto) (0.0-0.4) % Neut % (Auto) (45-73) % Lymph % (Auto) (20-40) % Bureau % (Auto) (2-11) % Eos % (Auto) (0-4) % Baso % (Auto) (0-2) % Lymph # (Auto) (1.2-4.9) X10*3/uL Bureau # (Auto) (0.1-1.2) X10*3/uL Eos # (Auto) (0.0-0.4) X10*3/uL Baso # (Auto) (0.0-0.2) X10*3/uL Abs Immat Gran (auto) (0.00-0.03) X10*3/uL Absolute Neuts (auto) (2.0-8.3) x10*3/uL Absolute Nucleated RBC (0.0-0.012) X10*3/uL Nucleated RBC % (auto) (0.0-0.2) /100WBC Sodium (135-145) mmol/L Potassium (3.3-5.1) mmol/L Chloride (96-108) mmol/L Carbon Dioxide (22-29) mmol/L Anion Gap (12-20) BUN (9-16) mg/dL Creatinine (0.5-1.4) mg/dL Estim Creat Clear Calc Estimated GFR POC Glucose (60-115) mg/dL Random Glucose (60-115) mg/dL Calcium (8.4-10.2) mg/dL Magnesium (1.6-2.6) mg/dL Total Bilirubin (0.0-1.0) mg/dL AST (5-37) U/L ALT (0-40) U/L Alkaline Phosphatase (39-117) U/L Troponin I High Sens 4.7 (<3.5-35.0) ng/L B-Natriuretic Peptide < 10 (<100) pg/mL Total Protein (6.5-8.0) g/dL Albumin (3.5-5.0) g/dL Influenza Type A (PCR) NEGATIVE (Negative) Influenza Type B (PCR) NEGATIVE (Negative) RSV RNA Qual (PCR) NEGATIVE (Negative) SARS-CoV-2 RNA (RT-PCR) NEGATIVE (Negative) 11/13/22 Range/Units 22:47 WBC (4.8-10.8) X10*3/uL RBC (4.60-5.80) X10*6/uL Hgb (14.0-18.0) g/dl Hct (42.0-52.0) % MCV (80.0-98.0) fL MCH (27.0-33.0) pg MCHC (31.0-36.0) g/dl RDW (11.0-16.0) % Plt Count (160-400) X10*3/uL MPV (9.4-12.4) fL Immature Gran % (Auto) (0.0-0.4) % Neut % (Auto) (45-73) % Lymph % (Auto) (20-40) % Bureau % (Auto) (2-11) % Eos % (Auto) (0-4) % Baso % (Auto) (0-2) % Lymph # (Auto) (1.2-4.9) X10*3/uL Bureau # (Auto) (0.1-1.2) X10*3/uL Eos # (Auto) (0.0-0.4) X10*3/uL Baso # (Auto) (0.0-0.2) X10*3/uL Abs Immat Gran (auto) (0.00-0.03) X10*3/uL Absolute Neuts (auto) (2.0-8.3) x10*3/uL Absolute Nucleated RBC (0.0-0.012) X10*3/uL Nucleated RBC % (auto) (0.0-0.2) /100WBC Sodium (135-145) mmol/L Potassium (3.3-5.1) mmol/L Chloride (96-108) mmol/L Carbon Dioxide (22-29) mmol/L Anion Gap (12-20) BUN (9-16) mg/dL Creatinine (0.5-1.4) mg/dL Estim Creat Clear Calc Estimated GFR POC Glucose 233 H (60-115) mg/dL Random Glucose (60-115) mg/dL Calcium (8.4-10.2) mg/dL Magnesium (1.6-2.6) mg/dL Total Bilirubin (0.0-1.0) mg/dL AST (5-37) U/L ALT (0-40) U/L Alkaline Phosphatase (39-117) U/L Troponin I High Sens (<3.5-35.0) ng/L B-Natriuretic Peptide (<100) pg/mL Total Protein (6.5-8.0) g/dL Albumin (3.5-5.0) g/dL Influenza Type A (PCR) (Negative) Influenza Type B (PCR) (Negative) RSV RNA Qual (PCR) (Negative) SARS-CoV-2 RNA (RT-PCR) (Negative) <Maribel Matias MD - Last Filed: 11/14/22 00:38> Independent Interpretation I performed an independent interpretation of an: Plain X-Ray (My interpretation, no acute findings or pneumonia) <Maribel Matias MD - Last Filed: 11/14/22 00:38> Radiology Impression Discussion of test interpretation with radiology: I have reviewed the radiologist's reading. <Maribel Matias MD - Last Filed: 11/14/22 00:38> Radiologist Impression: FINDINGS: No significant abnormality is noted involving the heart, lungs, mediastinum, bony thorax or soft tissues. Thoracic spondylitic changes observed. XR/XR chest 2V IMPRESSION: No evidence for acute process. <Maribel Matias MD - Last Filed: 11/14/22 00:38> Discharge Plan Discharge Clinical Impression: Hyperglycemia <SUREKHA Delgadillo - Last Filed: 11/13/22 15:47> Patient Disposition: Home, Self-Care <SUREKHA Delgadillo - Last Filed: 11/13/22 15:47> Instructions: Diabetic Hyperglycemia (ED) <SUREKHA Delgadillo - Last Filed: 11/13/22 15:47> Additional Instructions: Please increase your Lantus to 25 units at bedtime. Please follow-up with your primary care physician tomorrow. If you have any worsening or new symptoms, please return to the emergency room or call 911 <SUREKHA Delgadillo - Last Filed: 11/13/22 15:47> Prescriptions: New Glucagon Emergency Kit (human) 1 mg recon soln 1 mg subcut Q20M PRN (Reason: hypoglycemia) Qty: 1 0RF Rx Instructions: until target blood sugar attained No Action omeprazole 20 mg capsule,delayed release(DR/EC) 20 mg PO DAILY 30 Days Qty: 30 0RF ondansetron 4 mg tablet,disintegrating 4 mg PO Q6-8H PRN (Reason: nausea and vomiting) Qty: 14 0RF <Marisol Jimenez, PA - Last Filed: 11/13/22 15:47>
--- NOTE | 2022-11-13 15:45 | ECG_ITS ---
Test Reason : CHEST PAIN Blood Pressure : / mmHG Vent. Rate : 103 BPM Atrial Rate : 103 BPM P-R Int : 160 ms QRS Dur : 084 ms QT Int : 352 ms P-R-T Axes : 049 031 031 degrees QTc Int : 461 ms Sinus tachycardia Otherwise normal ECG When compared with ECG of 17-SEP-2015 11:07, QT has lengthened Referred By: Marisol Jimenez Electronically Signed By:ORTIZ LOBO MD
[2022-11-13 16:05] LABS: MANUAL DIFF FLAG NO
[2022-11-13 16:07] LABS: Basophils Percent Auto 0.1 % (0-2); Eosinophils Percent Auto 0.6 % (0-4); Hematocrit 39.9 % (42.0-52.0); Hemoglobin 13.9 g/dl (14.0-18.0); Imm Gran Abs Auto 0.02 X10*3/uL (0.00-0.03); Imm Gran Pct Auto 0.3 % (0.0-0.4); Lymphocytes Absolute Auto 1.8 X10*3/uL (1.2-4.9); Lymphocytes Percent Auto 27.1 % (20-40); Mean Corpuscular HGB Conc 34.8 g/dl (31.0-36.0); Mean Corpuscular Hemoglobin 25.4 pg (27.0-33.0); Mean Corpuscular Volume 72.8 fL (80.0-98.0); Mean Platelet Volume 9.6 fL (9.4-12.4); Monocytes Absolute Auto 0.6 X10*3/uL (0.1-1.2); Monocytes Percent Auto 8.4 % (2-11); Neutrophils Absolute Auto 4.2 x10*3/uL (2.0-8.3); Neutrophils Percent Auto 63.5 % (45-73); Platelet Count 183 X10*3/uL (160-400); Red Blood Count 5.48 X10*6/uL (4.60-5.80); Red Cell Distribution Width 16.5 % (11.0-16.0); White Blood Count 6.7 X10*3/uL (4.8-10.8)
[2022-11-13 16:26] LABS: B Type Natriuretic Peptide < 10 pg/mL (<100)
[2022-11-13 16:34] LABS: Alanine Aminotransferase 35 U/L (0-40); Albumin Level 4.8 g/dL (3.5-5.0); Alkaline Phosphatase 68 U/L (39-117); Anion Gap 26 (12-20); Aspartate Amino Transferase 33 U/L (5-37); Bilirubin Total 1.6 mg/dL (0.0-1.0); Blood Urea Nitrogen 28 mg/dL (9-16); Calcium 9.9 mg/dL (8.4-10.2); Carbon Dioxide 22 mmol/L (22-29); Chloride 85 mmol/L (96-108); Creatinine Clr Calc Pharmacy 46.1; Estimated Glomerular Filt Rate 40; Glucose Random 376 mg/dL (60-115); Magnesium 1.6 mg/dL (1.6-2.6); Potassium 4.1 mmol/L (3.3-5.1); Sodium 129 mmol/L (135-145); Total Protein 7.8 g/dL (6.5-8.0); Troponin-I High Sensitivity 5.3 ng/L (<3.5-35.0)
[2022-11-13 16:42] LABS: Influenza A PCR NEGATIVE (Negative); Influenza B PCR NEGATIVE (Negative); Resp Syncy Virus RNA Qual PCR NEGATIVE (Negative); SARS COV2 PCR INHOUSE NEGATIVE (Negative)
[2022-11-13 19:29] LABS: Troponin-I High Sensitivity 4.7 ng/L (<3.5-35.0)
[2022-11-13 21:33] VITALS: BP 94/70; PULSE 101; RESP 18; TEMP 36.7; O2SAT 98
[2022-11-13] MEDS: 0.9 % Sodium Chloride 1,000 ML 999 ML IVCONT (22:47)
[2022-11-13 22:54] LABS: Glucose, Whole Blood 233 mg/dL (60-115)
[2022-11-14 00:42] LABS: Glucose, Whole Blood 173 mg/dL (60-115)
== END 2022-11-14 01:05 | disposition home or self-care (01) ==
PROVIDERS: Physician Assistant Medical; Emergency Provider Emergency Medicine; PCP Internal Medicine
DX: E11.65 Type 2 diabetes mellitus with hyperglycemia (principal); R07.89 Other chest pain; R06.02 Shortness of breath; Z20.822 Contact with and (suspected) exposure to COVID-19; Z20.828 Contact with and (suspected) exposure to other viral communicable diseases; Z79.899 Other long term (current) drug therapy
CPT/HCPCS: 0241U; 36415; 71046; 80053; 82947; 83735; 83880; 84484; 85025; 93005; 96360; 99284

== ENCOUNTER 2022-11-29 14:21 | Emergency (ER) | payer MEDICAID, OTHER, SELFPAY ==
--- NOTE | ~2022-11-29 | XR_ITS ---
EXAMINATION: XR chest 1V CLINICAL INFORMATION: Chest pain COMPARISON: Prior chest x-ray 11/13/2022 TECHNIQUE: XR chest 1V Tubes and lines: None Lungs and pleura: Both lungs are clear. Heart and mediastinum: The mediastinum is within normal limits.. Bones/soft tissue: Skeletal structures included are normal for patient's age. XR/XR chest 1V IMPRESSION: No radiographic evidence of acute cardiopulmonary disease.
--- NOTE | 2022-11-29 14:24 | ECG_ITS ---
Test Reason : cp Blood Pressure : / mmHG Vent. Rate : 120 BPM Atrial Rate : 120 BPM P-R Int : 152 ms QRS Dur : 080 ms QT Int : 306 ms P-R-T Axes : 033 029 010 degrees QTc Int : 432 ms Sinus tachycardia Otherwise normal ECG When compared with ECG of 13-NOV-2022 15:50, No significant change was found Referred By: Generic ED Physician Electronically Signed By:ORTIZ LOBO MD
[2022-11-29 14:36] VITALS: BP 140/98; PULSE 119; RESP 20; TEMP 36.8; O2SAT 95; BMI 25.5
[2022-11-29 14:37] LABS: MANUAL DIFF FLAG NO
[2022-11-29 14:38] LABS: Basophils Absolute Auto 0.1 X10*3/uL (0.0-0.2); Eosinophils Absolute Auto 0.2 X10*3/uL (0.0-0.4); Eosinophils Percent Auto 2.6 % (0-4); Hematocrit 39.9 % (42.0-52.0); Hemoglobin 13.9 g/dl (14.0-18.0); Imm Gran Abs Auto 0.02 X10*3/uL (0.00-0.03); Imm Gran Pct Auto 0.3 % (0.0-0.4); Lymphocytes Absolute Auto 2.4 X10*3/uL (1.2-4.9); Lymphocytes Percent Auto 40.9 % (20-40); Mean Corpuscular HGB Conc 34.8 g/dl (31.0-36.0); Mean Corpuscular Hemoglobin 25.3 pg (27.0-33.0); Mean Corpuscular Volume 72.5 fL (80.0-98.0); Mean Platelet Volume 8.6 fL (9.4-12.4); Monocytes Absolute Auto 0.2 X10*3/uL (0.1-1.2); Monocytes Percent Auto 3.9 % (2-11); Neutrophils Percent Auto 51.3 % (45-73); Platelet Count 316 X10*3/uL (160-400); Red Cell Distribution Width 16.8 % (11.0-16.0); White Blood Count 5.9 X10*3/uL (4.8-10.8)
[2022-11-29 15:01] LABS: Troponin-I High Sensitivity 12.7 ng/L (<3.5-35.0)
[2022-11-29 15:07] LABS: Alanine Aminotransferase 54 U/L (0-40); Albumin Level 4.7 g/dL (3.5-5.0); Alkaline Phosphatase 72 U/L (39-117); Anion Gap 27 (12-20); Aspartate Amino Transferase 65 U/L (5-37); Bilirubin Total 0.5 mg/dL (0.0-1.0); Blood Urea Nitrogen 17 mg/dL (9-16); Calcium 9.7 mg/dL (8.4-10.2); Carbon Dioxide 22 mmol/L (22-29); Chloride 99 mmol/L (96-108); Creatinine Clr Calc Pharmacy 104.9; Estimated Glomerular Filt Rate > 60; Glucose Random 254 mg/dL (60-115); Potassium 4.7 mmol/L (3.3-5.1); Sodium 143 mmol/L (135-145)
== END 2022-11-29 17:19 | disposition left against medical advice (07) ==
PROVIDERS: Emergency Provider Emergency Medicine; PCP Internal Medicine
DX: R07.89 Other chest pain (principal); Z79.899 Other long term (current) drug therapy
CPT/HCPCS: 36415; 71045; 80053; 84484; 85025; 93005; 99283

== ENCOUNTER 2022-12-12 09:46 | Outpatient (REF) | payer MEDICAID, OTHER, SELFPAY ==
[2022-12-12 10:03] LABS: MANUAL DIFF FLAG NO
[2022-12-12 10:21] LABS: Basophils Percent Auto 0.5 % (0-2); Eosinophils Absolute Auto 0.1 X10*3/uL (0.0-0.4); Eosinophils Percent Auto 2.5 % (0-4); Hematocrit 38.3 % (42.0-52.0); Imm Gran Abs Auto 0.02 X10*3/uL (0.00-0.03); Imm Gran Pct Auto 0.5 % (0.0-0.4); Lymphocytes Absolute Auto 1.5 X10*3/uL (1.2-4.9); Lymphocytes Percent Auto 38.6 % (20-40); Mean Corpuscular HGB Conc 33.9 g/dl (31.0-36.0); Mean Corpuscular Hemoglobin 26.3 pg (27.0-33.0); Mean Corpuscular Volume 77.5 fL (80.0-98.0); Mean Platelet Volume 9.6 fL (9.4-12.4); Monocytes Absolute Auto 0.6 X10*3/uL (0.1-1.2); Monocytes Percent Auto 14.1 % (2-11); Neutrophils Absolute Auto 1.7 x10*3/uL (2.0-8.3); Neutrophils Percent Auto 43.8 % (45-73); Platelet Count 184 X10*3/uL (160-400); Red Blood Count 4.94 X10*6/uL (4.60-5.80); Red Cell Distribution Width 17.4 % (11.0-16.0)
[2022-12-12 10:47] LABS: Alanine Aminotransferase 37 U/L (0-40); Albumin Level 4.2 g/dL (3.5-5.0); Alkaline Phosphatase 53 U/L (39-117); Anion Gap 10 (12-20); Aspartate Amino Transferase 32 U/L (5-37); Bilirubin Total 0.7 mg/dL (0.0-1.0); Blood Urea Nitrogen 11 mg/dL (9-16); Calcium 9.3 mg/dL (8.4-10.2); Carbon Dioxide 27 mmol/L (22-29); Chloride 105 mmol/L (96-108); Cholesterol 301 mg/dL; Estimated Glomerular Filt Rate > 60; Glucose Random 191 mg/dL (60-115); HDL Cholesterol 50 mg/dL; LDL Cholesterol Calculated 232 mg/dl; Potassium 4.3 mmol/L (3.3-5.1); Sodium 138 mmol/L (135-145); Total Protein 6.6 g/dL (6.5-8.0); Triglycerides 99 mg/dL
[2022-12-12 11:07] LABS: Prostate Specific Antigen 0.43 ng/mL (<0.05-4.0); Thyroid Stimulating Hormone 1.64 uIU/mL (0.32-4.0)
[2022-12-12 12:03] LABS: Creatinine Urine 339.89 mg/dL; Microalbum/Creatinine Ratio Ur 10.8 ug/mg cr
== END 2022-12-12 09:47 | disposition home or self-care (01) ==
LOC: HO.LAB 09:46
PROVIDERS: PCP Internal Medicine; Visit Provider Internal Medicine
DX: Z12.5 Encounter for screening for malignant neoplasm of prostate (principal); E11.65 Type 2 diabetes mellitus with hyperglycemia; E78.00 Pure hypercholesterolemia, unspecified; E87.1 Hypo-osmolality and hyponatremia; F10.10 Alcohol abuse, uncomplicated; F32.9 Major depressive disorder, single episode, unspecified; N18.9 Chronic kidney disease, unspecified
CPT/HCPCS: 36415; 80053; 80061; 82043; 84153; 84443; 85025

== ENCOUNTER 2023-04-13 08:38 | Outpatient (REF) | payer OTHER, SELFPAY ==
[2023-04-13 14:19] LABS: Estimated Average Glucose 177 mg/dL; Hemoglobin A1c % 7.8 %
[2023-04-13 14:45] LABS: Alanine Aminotransferase 22 U/L (0-40); Albumin Level 4.2 g/dL (3.5-5.0); Alkaline Phosphatase 60 U/L (39-117); Anion Gap 14 (12-20); Aspartate Amino Transferase 21 U/L (5-37); Bilirubin Total 0.4 mg/dL (0.0-1.0); Blood Urea Nitrogen 18 mg/dL (9-16); Calcium 9.9 mg/dL (8.4-10.2); Carbon Dioxide 22 mmol/L (22-29); Chloride 106 mmol/L (96-108); Cholesterol 144 mg/dL; Estimated Glomerular Filt Rate > 60; Glucose Random 173 mg/dL (60-115); HDL Cholesterol 38 mg/dL; LDL Cholesterol Calculated 53 mg/dl; Potassium 3.9 mmol/L (3.3-5.1); Sodium 138 mmol/L (135-145); Triglycerides 265 mg/dL
== END 2023-04-13 08:39 | disposition home or self-care (01) ==
LOC: HO.LAB 08:38
PROVIDERS: PCP Internal Medicine; Visit Provider Internal Medicine
DX: E11.65 Type 2 diabetes mellitus with hyperglycemia (principal); E78.00 Pure hypercholesterolemia, unspecified; F32.9 Major depressive disorder, single episode, unspecified; I10 Essential (primary) hypertension
CPT/HCPCS: 36415; 80053; 80061; 83036

== ENCOUNTER 2023-10-01 20:34 | Emergency (ER) | payer MEDICAID, OTHER, SELFPAY ==
[2023-10-01 20:35] VITALS: BP 159/99; PULSE 109; RESP 18; TEMP 37.1; O2SAT 98; BMI 27.8
--- NOTE | 2023-10-01 20:44 | ED.GENADULT ---
HPI - General Adult General Chief complaint: Abdominal Pain Stated complaint: facial swelling, abd pain, is diabetic Time Seen by Provider: 10/02/23 03:41 Source: patient Mode of arrival: ambulatory Limitations: no limitations History of Present Illness HPI narrative: Patient comes to the emergency room complaining of abdominal pain, for 2 weeks, patient states that yesterday he took metformin and started having facial swelling, no oropharyngeal edema. Patient also admits to drinking alcohol. Patient denies any symptoms of withdrawal at this time. Related Data Previous Rx's Medication Instructions Recorded omeprazole 20 mg capsule,delayed 20 mg PO DAILY 30 days #30 caps 05/15/22 release ondansetron 4 mg disintegrating 4 mg PO Q6-8H PRN nausea and 05/15/22 tablet vomiting #14 tabs glucagon 1 mg solution for 1 mg subcut Q20M PRN hypoglycemia 11/14/22 injection (Glucagon Emergency Kit) #1 ea Allergies Allergy/AdvReac Type Severity Reaction Status Date / Time Penicillins [PENICILLINS] Allergy Mild RASH Verified 10/01/23 20:40 sildenafil [Viagra] AdvReac Unknown flush, Verified 10/01/23 20:40 headaches PENICILLIN Allergy Unknown rash Uncoded 06/02/18 00:00 Review of Systems Review of Systems: Constitutional : No Weight loss, No Fever, No Chills, No Night Sweats, No Fatigue, No Malaise, complaining of mild facial edema ENT/Mouth : No Hearing loss, No Ear Pain, No Nasal Congestion, No Sinus Pain, No Hoarseness, No sore throat, No Rhinorrhea, No Swallowing Difficulty Eyes: No Eye Pain, No Swelling, No Redness, No Foreign Body, No Discharge, No Vision Changes Cardiovascular : No Chest Pain, No SOB, No Dyspnea on Exertion, No Orthopnea, No Edema, No Palpitations Respiratory : No Cough, No Sputum, No Wheezing, No Smoke Exposure, No Dyspnea Gastrointestinal : No Nausea, No Vomiting, No Diarrhea, No Constipation, complaining of mild abdominal pain Genitourinary : no irregular bleeding, No Dysuria, No Urinary Frequency, No Hematuria, No Urinary Incontinence, No Urgency, No Flank Pain, No Urinary Flow Changes, No Hesitancy Musculoskeletal : No joint pain, No Myalgias, No Joint Swelling Skin : No Skin Lesions, No rash Neuro : No Weakness, No Numbness, No Paresthesias, No Loss of Consciousness, No Dizziness, No Headache Psych : No Anxiety/Panic, No Depression, No SI/HI/AH/VH, No Social Issues, Heme/Lymph: No Bruising, No Bleeding,No Lymphadenopathy Endocrine : No Polyuria, No Polydipsia, No Temperature Intolerance [facility] Past Medical History Medical History Type 2 diabetes mellitus Social History Social History Advance Directives: No Advance Directives Information Provided: No Physical Exam ED Vital Signs: Vital Signs - 24 hr 10/01/23 20:35 10/02/23 01:45 Temperature 98.7 F Pulse Rate 109 H 91 Respiratory Rate 18 17 Blood Pressure 159/99 H 142/94 H Pulse Oximetry 98 98 Oxygen Delivery Method Room Air Room Air BMI result Body Mass Index 27.8 Const Other: Appearance: Alert. Oriented X3. No acute distress. Eyes: Pupils equal, round and reactive to light. ENT: Pharynx normal. Very mild facial edema? No oropharyngeal edema Neck: Normal inspection. Neck supple. No lymph nodes noted. No crepitus CVS: Normal heart rate and rhythm. Pulses normal. Normal S1 and S2 Respiratory: No respiratory distress. Breath sounds normal. No Wheezing. No rales Abdomen: Soft and nontender. No rigidity. No distention. Skin: Skin warm and dry. Normal skin color. Normal skin turgor. Extremities: No lower extremity edema. No Lacerations. No Rash Neuro: Oriented X 3. No motor deficit. No sensory deficit. Moving all extremities. No slurred speech. CN 2 through 12 grossly intact Psych: calm, cooperative, normal affect Course Course Course Narrative: This is a rapid medical exam: Additional HPI, ROS, PE not included below will be deferred to primary provider. Patient is a 53-year-old male with history of alcohol use disorder, T2DM presenting to the ED with complaint of RUQ abdominal pain. States has recently been drinking alcohol, as well as cocain use, last used both 3 days ago. Also complains of facial swelling after taking metformin yesterday. States he has taken this medication before without incident, denies any shortness of breath. No uvula edema, lungs clear. Plan: labs, UA Medications Administered Discontinued Medications Generic Name Dose Route Start Last Admin Trade Name Freq PRN Reason Stop Dose Admin Diphenhydramine HCl 50 mg 10/02/23 03:52 10/02/23 04:09 Diphenhydramine Hcl 50 Mg/Ml Vial IVPUSH 10/02/23 03:53 50 mg ONCE ONE Administration Famotidine 20 mg 10/02/23 03:52 10/02/23 04:09 Famotidine/Pf 20 Mg/2 Ml Vial IVPUSH 10/02/23 03:53 20 mg ONCE ONE Administration Sodium Chloride 1,000 mls @ 999 mls/hr 10/02/23 03:52 10/02/23 05:47 Ns IVCONT 10/02/23 04:52 Infused .Q1H1M ONE Infusion Insulin Human Regular 10 unit 10/02/23 03:52 10/02/23 04:36 Insulin Regular, Human 100 Unit/Ml 3 Ml Vial IVPUSH 10/02/23 03:53 10 unit ONCE ONE Administration Methylprednisolone Sodium Succinate 125 mg 10/02/23 03:52 10/02/23 04:09 Methylprednisolone Sod Succ 125 Mg/2 Ml Vial IVPUSH 10/02/23 03:53 125 mg ONCE ONE Administration Medical Decision Making Medical Decision Making MDM Narrative: -patient has edema likely secondary to cocaine use, possible allergic reaction to something in the cocaine. not necessarily secondary to metformin which he has constantly been taking. -my interpretation of labs: Hematology at baseline, patient's glucose elevated, AMAURI present. Patient given IV fluids and insulin. Patient states that he is supposed to be taking insulin, Lantus and Humalog but patient states that he does not take it because he prefers to take metformin only. -discussed with the patient as if he believes that metformin was because the mild facial swelling he had today, to discontinue taking it, however, discussed with the patient that most likely the cause of the allergic reaction as mentioned above, was the cocaine. -after IV fluids and insulin, patient's AMAURI resolved, beta hydroxybutyrate improved. Patient agreeable to take fluids at home. Patient is asymptomatic -patient states that he will start using his insulin. As he no longer should be taking metformin. Patient states he has plenty of insulin of both types at home Differential Diagnosis Differential Diagnoses: The differential diagnosis associated with the presentation includes (DKA, hyperglycemia, polysubstance abuse) Admission/Observation Consideration of admission/observation: Escalation of care including admission/observation considered (Given patient's presentation and labs, patient was considered on arrival,) Lab Data MDM Lab Attestation statement: I reviewed the patient's lab results. 10/01/23 20:58 10/02/23 06:08 Labs: Lab Results 10/01/23 10/02/23 10/02/23 Range/Units 20:58 01:38 05:22 WBC 5.0 (4.8-10.8) X10*3/uL RBC 5.67 (4.60-5.80) X10*6/uL Hgb 15.0 (14.0-18.0) g/dl Hct 42.2 (42.0-52.0) % MCV 74.4 L (80.0-98.0) fL MCH 26.5 L (27.0-33.0) pg MCHC 35.5 (31.0-36.0) g/dl RDW 15.3 (11.0-16.0) % Plt Count 152 L (160-400) X10*3/uL MPV 9.3 L (9.4-12.4) fL Immature Gran % (Auto) 0.4 (0.0-0.4) % Neut % (Auto) 56.3 (45-73) % Lymph % (Auto) 28.4 (20-40) % Rock % (Auto) 13.3 H (2-11) % Eos % (Auto) 1.2 (0-4) % Baso % (Auto) 0.4 (0-2) % Lymph # (Auto) 1.4 (1.2-4.9) X10*3/uL Rock # (Auto) 0.7 (0.1-1.2) X10*3/uL Eos # (Auto) 0.1 (0.0-0.4) X10*3/uL Baso # (Auto) 0.0 (0.0-0.2) X10*3/uL Abs Immat Gran (auto) 0.02 (0.00-0.03) X10*3/uL Absolute Neuts (auto) 2.8 (2.0-8.3) x10*3/uL Absolute Nucleated RBC 0.000 (0.0-0.012) X10*3/uL Nucleated RBC % (auto) 0.0 (0.0-0.2) /100WBC PT 11.0 L (11.1-13.3) SEC INR 0.9 (0.9-1.1) Sodium 130 L (135-145) mmol/L Potassium 4.1 (3.3-5.1) mmol/L Chloride 95 L (96-108) mmol/L Carbon Dioxide 22 (22-29) mmol/L Anion Gap 17 (12-20) BUN 20 H (9-16) mg/dL Creatinine 1.51 H (0.5-1.4) mg/dL Estim Creat Clear Calc 56.2 Estimated GFR 49 POC Glucose 521 H* 134 H (60-115) mg/dL Random Glucose 552 H* (60-115) mg/dL Calcium 10.1 (8.4-10.2) mg/dL Total Bilirubin 0.6 (0.0-1.0) mg/dL AST 133 H (5-37) U/L ALT 122 H (0-40) U/L Alkaline Phosphatase 89 (39-117) U/L Total Protein 8.0 (6.5-8.0) g/dL Albumin 4.5 (3.5-5.0) g/dL Beta-Hydroxybutyrate 1.35 H (0.02-0.27) mmol/L Urine Color Yellow Urine Appearance Clear Urine pH 5.5 (5.0-9.0) Ur Specific [place] >= 1.030 H (1.005-1.025) Urine Protein Negative (Neg-Trace) mg/dL Urine Glucose (UA) >=1000 H (Negative) mg/dL Urine Ketones 15 (Negative) mg/dL Urine Blood Small (1+) H (Negative) Urine Nitrite Negative (Negative) Ur Leukocyte Esterase Negative (Negative) Urine RBC 3-5 H (0-2) /HPF Urine WBC 0-5 (0-5) /HPF Ur Squamous Epith Cells 0-2 (0-2) /HPF Urine Bacteria None Seen (None Seen) Hyaline Casts 0-2 (0-2) /LPF Urine Opiates Screen Not Detected (Not Detect) Urine Fentanyl Screen Not Detected (Not Detect) Ur Barbiturates Screen Not Detected (Not Detect) Ur Phencyclidine Scrn Not Detected (Not Detect) Ur Amphetamines Screen Not Detected (Not Detect) U Benzodiazepines Scrn Not Detected (Not Detect) Urine Cocaine Screen POSITIVE H (Not Detect) U Marijuana (THC) Screen Not Detected (Not Detect) 10/02/23 Range/Units 06:08 WBC (4.8-10.8) X10*3/uL RBC (4.60-5.80) X10*6/uL Hgb (14.0-18.0) g/dl Hct (42.0-52.0) % MCV (80.0-98.0) fL MCH (27.0-33.0) pg MCHC (31.0-36.0) g/dl RDW (11.0-16.0) % Plt Count (160-400) X10*3/uL MPV (9.4-12.4) fL Immature Gran % (Auto) (0.0-0.4) % Neut % (Auto) (45-73) % Lymph % (Auto) (20-40) % Rock % (Auto) (2-11) % Eos % (Auto) (0-4) % Baso % (Auto) (0-2) % Lymph # (Auto) (1.2-4.9) X10*3/uL Rock # (Auto) (0.1-1.2) X10*3/uL Eos # (Auto) (0.0-0.4) X10*3/uL Baso # (Auto) (0.0-0.2) X10*3/uL Abs Immat Gran (auto) (0.00-0.03) X10*3/uL Absolute Neuts (auto) (2.0-8.3) x10*3/uL Absolute Nucleated RBC (0.0-0.012) X10*3/uL Nucleated RBC % (auto) (0.0-0.2) /100WBC PT (11.1-13.3) SEC INR (0.9-1.1) Sodium 138 (135-145) mmol/L Potassium 3.6 (3.3-5.1) mmol/L Chloride 104 (96-108) mmol/L Carbon Dioxide 23 (22-29) mmol/L Anion Gap 15 (12-20) BUN 14 (9-16) mg/dL Creatinine 0.84 (0.5-1.4) mg/dL Estim Creat Clear Calc 101.1 Estimated GFR > 60 POC Glucose (60-115) mg/dL Random Glucose 125 H (60-115) mg/dL Calcium 9.4 D (8.4-10.2) mg/dL Total Bilirubin (0.0-1.0) mg/dL AST (5-37) U/L ALT (0-40) U/L Alkaline Phosphatase (39-117) U/L Total Protein (6.5-8.0) g/dL Albumin (3.5-5.0) g/dL Beta-Hydroxybutyrate 0.69 H (0.02-0.27) mmol/L Urine Color Urine Appearance Urine pH (5.0-9.0) Ur Specific [place] (1.005-1.025) Urine Protein (Neg-Trace) mg/dL Urine Glucose (UA) (Negative) mg/dL Urine Ketones (Negative) mg/dL Urine Blood (Negative) Urine Nitrite (Negative) Ur Leukocyte Esterase (Negative) Urine RBC (0-2) /HPF Urine WBC (0-5) /HPF Ur Squamous Epith Cells (0-2) /HPF Urine Bacteria (None Seen) Hyaline Casts (0-2) /LPF Urine Opiates Screen (Not Detect) Urine Fentanyl Screen (Not Detect) Ur Barbiturates Screen (Not Detect) Ur Phencyclidine Scrn (Not Detect) Ur Amphetamines Screen (Not Detect) U Benzodiazepines Scrn (Not Detect) Urine Cocaine Screen (Not Detect) U Marijuana (THC) Screen (Not Detect) Critical Care Time Critical Care Time Critical Care Time: Yes Total Critical Care Time: 75 Attestation: I have personally provided critical care time. Time includes review of lab data, radiology results, discussion with consultants, and monitoring for potential decompensation. Intervention performed as documented. Discharge Plan Discharge Clinical Impression: Acute hyperglycemia, Cocaine abuse, Acute kidney injury, Acute dehydration Patient Disposition: Home, Self-Care Instructions: Diabetic Hyperglycemia (ED), Polysubstance Abuse (ED) Additional Instructions: Please follow-up with your primary care physician tomorrow. If you have any worsening or new symptoms, please return to the emergency room or call 911 Prescriptions: No Action Glucagon Emergency Kit (human) 1 mg recon soln 1 mg subcut Q20M PRN (Reason: hypoglycemia) Qty: 1 0RF Rx Instructions: until target blood sugar attained omeprazole 20 mg capsule,delayed release(DR/EC) 20 mg PO DAILY 30 Days Qty: 30 0RF ondansetron 4 mg tablet,disintegrating 4 mg PO Q6-8H PRN (Reason: nausea and vomiting) Qty: 14 0RF
--- NOTE | 2023-10-01 21:02 | MHC.EDTECH ---
Patient was brought into triage area, labs and urine were obtained and sent to lab.Patient brought back to [facility] area.
[2023-10-01 21:06] LABS: Basophils Percent Auto 0.4 % (0-2); Eosinophils Absolute Auto 0.1 X10*3/uL (0.0-0.4); Eosinophils Percent Auto 1.2 % (0-4); Hematocrit 42.2 % (42.0-52.0); Imm Gran Abs Auto 0.02 X10*3/uL (0.00-0.03); Imm Gran Pct Auto 0.4 % (0.0-0.4); Lymphocytes Absolute Auto 1.4 X10*3/uL (1.2-4.9); Lymphocytes Percent Auto 28.4 % (20-40); MANUAL DIFF FLAG NO; Mean Corpuscular HGB Conc 35.5 g/dl (31.0-36.0); Mean Corpuscular Hemoglobin 26.5 pg (27.0-33.0); Mean Corpuscular Volume 74.4 fL (80.0-98.0); Mean Platelet Volume 9.3 fL (9.4-12.4); Monocytes Absolute Auto 0.7 X10*3/uL (0.1-1.2); Monocytes Percent Auto 13.3 % (2-11); Neutrophils Absolute Auto 2.8 x10*3/uL (2.0-8.3); Neutrophils Percent Auto 56.3 % (45-73); Platelet Count 152 X10*3/uL (160-400); Red Blood Count 5.67 X10*6/uL (4.60-5.80); Red Cell Distribution Width 15.3 % (11.0-16.0)
[2023-10-01 21:08] LABS: Appearance Urine Clear; Color Urine Yellow; Glucose Urine UA >=1000 mg/dL (Negative); Leukocyte Esterase Urine Negative (Negative); Nitrite Urine Negative (Negative); PH 5.5 (5.0-9.0); Specific Gravity - Urine >= 1.030 (1.005-1.025); UMIC TRIGGER UACC YES; Urine Blood Small (1+) (Negative); Urine Ketones 15 mg/dL (Negative); Urine Protein Negative (Neg-Trace)
[2023-10-01 21:13] LABS: INTERNATIONAL NORM RATIO 0.9 (0.9-1.1)
[2023-10-01 21:21] LABS: Bacteria Urine None Seen (None Seen); Hyaline Casts Urine 0-2 /LPF (0-2); Squamous Epithelial Cell Urine 0-2 /HPF (0-2); WBC Urine 0-5 /HPF (0-5)
[2023-10-01 21:36] LABS: Alanine Aminotransferase 122 U/L (0-40); Albumin Level 4.5 g/dL (3.5-5.0); Alkaline Phosphatase 89 U/L (39-117); Anion Gap 17 (12-20); Aspartate Amino Transferase 133 U/L (5-37); Bilirubin Total 0.6 mg/dL (0.0-1.0); Blood Urea Nitrogen 20 mg/dL (9-16); Calcium 10.1 mg/dL (8.4-10.2); Carbon Dioxide 22 mmol/L (22-29); Chloride 95 mmol/L (96-108); Creatinine Clr Calc Pharmacy 56.2; Estimated Glomerular Filt Rate 49; Glucose Random 552 mg/dL (60-115); Potassium 4.1 mmol/L (3.3-5.1); Sodium 130 mmol/L (135-145)
[2023-10-02 01:42] LABS: Glucose, Whole Blood 521 mg/dL (60-115)
[2023-10-02 01:45] VITALS: BP 142/94; PULSE 91; RESP 17; O2SAT 98
[2023-10-02] MEDS: 0.9 % Sodium Chloride 1,000 ML 999 ML IVCONT (04:05)
[2023-10-02 04:06] LABS: Amphetamine Screen Urine Not Detected (Not Detect); Barbiturates, Urine Not Detected (Not Detect); Benzodiazepines Screen Urine Not Detected (Not Detect); Cannabinoid Screen Urine Not Detected (Not Detect); Cocaine Screen Urine POSITIVE (Not Detect); Fentanyl, urine Not Detected (Not Detect); Opiate Screen Urine Not Detected (Not Detect); Phencyclidine Screen Urine Not Detected (Not Detect)
[2023-10-02] MEDS: Famotidine/PF 20 MG/2 ML VIAL IVPUSH (04:09)
[2023-10-02] MEDS: diphenhydrAMINE HCL 50 MG/ML VIAL IVPUSH (04:09)
[2023-10-02] MEDS: methylPREDNISolone Sod Succ 125 MG/2 ML VIAL IVPUSH (04:09)
[2023-10-02 04:10] LABS: Beta-Hydroxybutyrate 1.35 mmol/L (0.02-0.27)
[2023-10-02] MEDS: Insulin Regular, Human 100 UNIT/ML 3 ML VIAL 10 UNIT IVPUSH (04:36)
[2023-10-02 05:25] LABS: Glucose, Whole Blood 134 mg/dL (60-115)
[2023-10-02 06:28] LABS: Anion Gap 15 (12-20); Beta-Hydroxybutyrate 0.69 mmol/L (0.02-0.27); Blood Urea Nitrogen 14 mg/dL (9-16); Calcium 9.4 mg/dL (8.4-10.2); Carbon Dioxide 23 mmol/L (22-29); Chloride 104 mmol/L (96-108); Creatinine Clr Calc Pharmacy 101.1; Estimated Glomerular Filt Rate > 60; Glucose Random 125 mg/dL (60-115); Potassium 3.6 mmol/L (3.3-5.1); Sodium 138 mmol/L (135-145)
[2023-10-02 06:43] VITALS: BP 141/92; PULSE 84; RESP 17; TEMP 36.8; O2SAT 96
[2023-10-02 08:12] LABS: Glucose, Whole Blood 376 mg/dL (60-115)
== END 2023-10-02 06:58 | disposition home or self-care (01) ==
PROVIDERS: Registered Nurse Emergency; Emergency Provider Emergency Medicine; PCP Internal Medicine
DX: E11.65 Type 2 diabetes mellitus with hyperglycemia (principal); E86.0 Dehydration; N17.9 Acute kidney failure, unspecified; F14.10 Cocaine abuse, uncomplicated; R10.11 Right upper quadrant pain; R52 Pain, unspecified
CPT/HCPCS: 36415; 80048; 80053; 80307; 81001; 82010; 82947; 85025; 85610; 96361; 96374; 96375; 99284; 99285; J1200; J2930

== ENCOUNTER 2024-03-04 13:33 | Emergency (ER) | payer MEDICAID, OTHER, SELFPAY ==
[2024-03-04 14:12] VITALS: BP 127/86; PULSE 100; RESP 19; TEMP 36.6; O2SAT 97; BMI 30.7
--- NOTE | 2024-03-04 14:14 | ED.GENADULT ---
HPI - General Adult General Chief complaint: ETOH/Substance Use Stated complaint: looking for detox program, alcoholism Time Seen by Provider: 03/04/24 16:22 Source: patient Mode of arrival: ambulatory Limitations: no limitations History of Present Illness ED Provider: Bridget Saab NP HPI narrative: Patient is a 54-year-old male with history of alcohol use disorder, T2 DM presenting to the emergency department stating that he would like help with detoxing from alcohol. Reports that he drinks approximately 1 bottle of whiskey per day. Last drink was this morning. Denies history of withdrawal seizures. Denies any other drug use. Denies any suicidal or homicidal ideation, auditory or visual hallucinations. States that he is prescribed metformin for his diabetes but has not taken it in the past 10 days due to drinking alcohol and forgetting. States he does have an adequate supply at home. Reports chronic lower back pain but denies any other physical complaints. MD complaint: intoxication Treatments prior to arrival: none Related Data Home Medications ?Medication ?Instructions ?Recorded ?Confirmed aspirin 81 mg chewable tablet 1 tab PO DAILY 03/04/24 03/04/24 insulin glargine 100 unit/mL (3 15 unit subcut BEDTIME 03/04/24 03/04/24 mL) subcutaneous pen (Lantus Solostar U-100 Insulin) lisinopril 20 mg tablet 20 mg PO DAILY 03/04/24 03/04/24 metformin 1,000 mg tablet 1,000 mg PO BID 03/04/24 03/04/24 rosuvastatin 40 mg tablet 40 mg PO BEDTIME 03/04/24 03/04/24 sertraline 100 mg tablet 100 mg PO DAILY 03/04/24 03/04/24 thiamine HCl (vitamin B1) 100 mg 100 mg PO DAILY 03/04/24 03/04/24 tablet Previous Rx's ?Medication ?Instructions ?Recorded glucagon 1 mg solution for 1 mg subcut Q20M PRN hypoglycemia 11/14/22 injection (Glucagon Emergency Kit) #1 ea Allergies Allergy/AdvReac Type Severity Reaction Status Date / Time Penicillins [PENICILLINS] Allergy Mild RASH Verified 03/04/24 14:14 sildenafil [Viagra] AdvReac Unknown flush, Verified 03/04/24 14:14 headaches PENICILLIN Allergy Unknown rash Uncoded 03/04/24 14:14 Review of Systems Review of Systems: As per HPI. Yes all other systems are reviewed and are negative Constitutional: Constitutional: Reports as per HPI [facility] Past Medical History Medical History Type 2 diabetes mellitus Social History Social History Alcohol intake: current Alcohol intake frequency: 3 or more drinks per day Alcohol type: beer and hard liquor Smoked in Last 30 Days: Yes Use of substances other than those prescribed or required for medical reasons: Yes Substance Use Type: Marijuana Last Used Substance: Just Prior to Admission Advance Directives: No Advance Directives Information Provided: Yes Do you have a plan to hurt others: No Plan Physical Exam ED Vital Signs: Vital Signs - 24 hr 03/04/24 18:57 03/04/24 20:05 03/05/24 01:28 Temperature 98.0 F 98.0 F Pulse Rate 85 88 85 Respiratory Rate 18 18 17 Blood Pressure 146/96 H 159/105 H 152/87 H Pulse Oximetry 96 96 97 Oxygen Delivery Method Room Air Room Air Room Air Oxygen Flow Rate 03/05/24 05:51 03/05/24 07:47 03/05/24 08:15 Temperature 97.2 F 98.3 F Pulse Rate 91 80 Respiratory Rate 17 16 Blood Pressure 165/97 H 172/92 H 172/92 H Pulse Oximetry 95 98 Oxygen Delivery Method Room Air Room Air Oxygen Flow Rate 03/05/24 11:00 03/05/24 12:52 03/05/24 14:22 Temperature 98.4 F Pulse Rate 82 98 74 Respiratory Rate 18 14 18 Blood Pressure 149/100 H 164/113 H 170/112 H Pulse Oximetry 99 Oxygen Delivery Method Room Air Room Air Room Air Oxygen Flow Rate 98 BMI result Body Mass Index 30.7 Vital signs have been reviewed and appear to be correct. Blood pressure normal. Heart rate normal. Respiratory rate normal. Temperature normal. Oxygen saturation normal. Const General: cooperative, healthy appearing and no acute distress Orientation/consciousness: oriented to person, oriented to place, oriented to time and patient oriented x3 Limitations: no limitations HENMT Head: Yes normocephalic and Yes atraumatic Ears: external ears normal General nose exam: Normal external nose present Face and sinus: Yes face symmetric Mouth: oropharynx normal and moist mucous membranes Throat: Yes uvula midline Eyes Pupils: Equal, round and reactive pupils present Neck Neck: Yes normal visual inspection and Yes supple Resp Effort & Inspection: normal respiratory effort and able to speak in complete sentences Auscultation: clear to auscultation bilaterally Cardio Rate: regular rate Rhythm: regular rhythm Heart sounds: S1 normal heart sound present and S2 normal heart sound present GI Palpation (GI): Soft to palpation and nontender Auscultation: normoactive bowel sounds General: Yes no CVA tenderness Back/Spine/Pelvis Back: no CVA tenderness Skin General skin exam: elasticity normal and turgor normal Neuro General: oriented to person, oriented to place, oriented to time, patient oriented x3, moves all extremities, no focal motor deficits and CN's II-XI intact bilaterally Cranial nerves: Yes Equal, round and reactive pupils present Cognition (Neuro): normal cognition Extrem General: Yes full ROM, Yes no pedal edema and Yes no calf tenderness Psych Mental Status: mental status grossly normal Affect: normal affect Thought process: Normal thought process present Course Course Course Narrative: This is an RME: Additional HPI, ROS, PE not included below will be deferred to primary provider. RME assessment and note performed by: Greer Mcdaniel PA-C This is a [id number], with a history of alcohol use disorder and diabetes, who presents to the ER with complaints of detox. Reporting etoh use daily. Last alcohol use was 1 hour ago. No hx of alcohol withdrawal seizures. Plan: Labs, UA, addiction med consult Reevaluation(s) Reevaluation #1: Per addiction medicine, patient will go directly from the ED to [facility] detox, will drive him there. Time: 16:21 Medications Administered Generic Name Dose Route Start Last Admin Trade Name Krysta PRN Reason Stop Dose Admin Aspirin 81 mg 03/05/24 09:00 03/05/24 08:15 Aspirin 81 Mg Tab.Chew PO 81 mg DAILY HARMAN Administration Insulin Glargine 15 unit 03/04/24 21:00 03/04/24 21:39 Insulin Glargine,Hum.Rec.Anlog 100 Unit/Ml 10 Ml Vial SUBCUT 15 unit BEDTIME HARMAN Administration Lisinopril 20 mg 03/05/24 09:00 03/05/24 08:15 Lisinopril 20 Mg Tablet PO 20 mg DAILY HARMAN Administration Protocol Metformin HCl 1,000 mg 03/04/24 21:00 03/05/24 08:15 Metformin Hcl 1,000 Mg Tablet PO 1,000 mg BID HARMAN Administration Sertraline HCl 100 mg 03/05/24 09:00 03/05/24 08:18 Sertraline Hcl 100 Mg Tablet PO 100 mg DAILY HARMAN Administration Thiamine HCl 100 mg 03/05/24 09:00 03/05/24 08:15 Thiamine Hcl 100 Mg Tablet PO 100 mg DAILY HARMAN Administration Discontinued Medications Generic Name Dose Route Start Last Admin Trade Name Krysta PRN Reason Stop Dose Admin Acetaminophen 975 mg 03/04/24 20:19 03/04/24 20:35 Acetaminophen 325 Mg Tablet PO 03/04/24 20:20 975 mg ONCE ONE Administration Sodium Chloride 1,000 mls @ 999 mls/hr 03/04/24 16:30 03/04/24 17:48 Ns IV 03/04/24 17:30 Infused .Q1H1M HARMAN Infusion Insulin Human Lispro 5 unit 03/04/24 16:22 03/04/24 16:34 Insulin Lispro 100 Unit/Ml 3 Ml Vial SUBCUT 03/04/24 16:23 5 unit ONCE ONE Administration Lorazepam 1 mg 03/04/24 23:00 03/04/24 23:57 Lorazepam 1 Mg Tablet PO 03/04/24 23:01 1 mg ONCE ONE Administration Phenobarbital Sodium 354 mg 03/05/24 06:30 03/05/24 06:37 Phenobarbital Sodium 130 Mg/Ml Im Once IM 03/05/24 06:31 354 mg ONCE ONE Administration Phenobarbital Sodium 265 mg 03/05/24 09:30 03/05/24 12:49 Phenobarbital Sodium 130 Mg/Ml Vial Im Q3hx2 IM 03/05/24 12:31 265 mg Q3H HARMAN Administration Medical Decision Making Medical Decision Making MDM Narrative: Patient is a 54-year-old male with history of alcohol use disorder, T2 DM presenting to the emergency department stating that he would like help with detoxing from alcohol. On exam patient is awake, A+Ox3, VS WNL, afebrile, normal neurological exam without focal deficits, physical exam findings as above. Given reported symptoms and physical exam findings, initial differential includes alcohol intoxication, alcohol withdrawal, hyperglycemia, electroly abnormality. Labs notable for no leukocytosis, hyperglycemia, no significant anion gap, no evidence of AMAURI, mildly elevated LFTs. No evidence of DKA. Patient given IV fluids, insulin, blood glucose improving. Feel patient is able to be medically cleared for addiction medicine consult at this time and place it physician observation at 7:50 p.m. on 03/04/2024. 06:03 Physician observation continued Patient's CIWA was 10 and the patient does appear to be withdrawing from alcohol. Patient states he drinks at least 4 alcoholic beverages per day and 6-10 beers per day. Given his potential for severe withdrawal and his elevated CIWA scale, patient was started on phenobarbital 15 milligrams/kilogram IM in divided doses Patient will remain in the emergency department until disposition can be determined or until patient's symptoms improve over time. Differential Diagnosis Differential Diagnoses: The differential diagnosis associated with the presentation includes As per [facility] Admission/Observation Consideration of admission/observation: Escalation of care including admission/observation considered Consult Healthcare Provider Management of the patient was discussed with: Hemstitching Machine Operator Lab Data [facility] Lab Attestation statement: I reviewed the patient's lab results. As per [facility] 03/04/24 14:26 03/04/24 14:26 Labs: Lab Results 03/04/24 03/04/24 03/04/24 Range/Units 14:21 14:26 14:29 WBC 5.7 (4.8-10.8) X10*3/uL RBC 5.53 (4.60-5.80) X10*6/uL Hgb 14.8 (14.0-18.0) g/dl Hct 41.1 L (42.0-52.0) % MCV 74.3 L (80.0-98.0) fL MCH 26.8 L (27.0-33.0) pg MCHC 36.0 (31.0-36.0) g/dl RDW 14.2 (11.0-16.0) % Plt Count 277 D (160-400) X10*3/uL MPV 8.7 L (9.4-12.4) fL Immature Gran % (Auto) 0.7 H (0.0-0.4) % Neut % (Auto) 51.0 (45-73) % Lymph % (Auto) 40.1 H (20-40) % [place] % (Auto) 3.1 (2-11) % Eos % (Auto) 4.4 H (0-4) % Baso % (Auto) 0.7 (0-2) % Lymph # (Auto) 2.3 (1.2-4.9) X10*3/uL [place] # (Auto) 0.2 (0.1-1.2) X10*3/uL Eos # (Auto) 0.3 (0.0-0.4) X10*3/uL Baso # (Auto) 0.0 (0.0-0.2) X10*3/uL Abs Immat Gran (auto) 0.04 H (0.00-0.03) X10*3/uL Absolute Neuts (auto) 2.9 (2.0-8.3) x10*3/uL Absolute Nucleated RBC 0.000 (0.0-0.012) X10*3/uL Nucleated RBC % (auto) 0.0 (0.0-0.2) /100WBC Sodium 140 (135-145) mmol/L Potassium 4.2 (3.3-5.1) mmol/L Chloride 102 (96-108) mmol/L Carbon Dioxide 21 L (22-29) mmol/L Anion Gap 21 H (12-20) BUN 15 (9-16) mg/dL Creatinine 1.31 (0.5-1.4) mg/dL Estim Creat Clear Calc 62.7 Estimated GFR 57 POC Glucose 393 H* (60-115) mg/dL Random Glucose 476 H* (60-115) mg/dL Calcium 9.6 (8.4-10.2) mg/dL Total Bilirubin 0.2 (0.0-1.0) mg/dL Direct Bilirubin < 0.2 (0.0-0.5) mg/dL AST 50 H (5-37) U/L ALT 42 H (0-40) U/L Alkaline Phosphatase 74 (39-117) U/L Total Protein 7.8 (6.5-8.0) g/dL Albumin 4.5 (3.5-5.0) g/dL Lipase 43 (8-78) U/L Urine Color Yellow Urine Appearance Clear Urine pH 5.5 (5.0-9.0) Ur Specific [place] >= 1.030 H (1.005-1.025) Urine Protein Trace (Neg-Trace) mg/dL Urine Glucose (UA) >=1000 H (Negative) mg/dL Urine Ketones Negative (Negative) mg/dL Urine Blood Negative (Negative) Urine Nitrite Negative (Negative) Ur Leukocyte Esterase Negative (Negative) Urine RBC 0-2 (0-2) /HPF Urine WBC 0-5 (0-5) /HPF Ur Squamous Epith Cells 0-2 (0-2) /HPF Urine Bacteria None Seen (None Seen) Hyaline Casts 0-2 (0-2) /LPF Ethyl Alcohol 366 H* mg/dL 03/04/24 03/05/24 Range/Units 19:31 07:19 WBC (4.8-10.8) X10*3/uL RBC (4.60-5.80) X10*6/uL Hgb (14.0-18.0) g/dl Hct (42.0-52.0) % MCV (80.0-98.0) fL MCH (27.0-33.0) pg MCHC (31.0-36.0) g/dl RDW (11.0-16.0) % Plt Count (160-400) X10*3/uL MPV (9.4-12.4) fL Immature Gran % (Auto) (0.0-0.4) % Neut % (Auto) (45-73) % Lymph % (Auto) (20-40) % [place] % (Auto) (2-11) % Eos % (Auto) (0-4) % Baso % (Auto) (0-2) % Lymph # (Auto) (1.2-4.9) X10*3/uL [place] # (Auto) (0.1-1.2) X10*3/uL Eos # (Auto) (0.0-0.4) X10*3/uL Baso # (Auto) (0.0-0.2) X10*3/uL Abs Immat Gran (auto) (0.00-0.03) X10*3/uL Absolute Neuts (auto) (2.0-8.3) x10*3/uL Absolute Nucleated RBC (0.0-0.012) X10*3/uL Nucleated RBC % (auto) (0.0-0.2) /100WBC Sodium (135-145) mmol/L Potassium (3.3-5.1) mmol/L Chloride (96-108) mmol/L Carbon Dioxide (22-29) mmol/L Anion Gap (12-20) BUN (9-16) mg/dL Creatinine (0.5-1.4) mg/dL Estim Creat Clear Calc Estimated GFR POC Glucose 346 H 218 H (60-115) mg/dL Random Glucose (60-115) mg/dL Calcium (8.4-10.2) mg/dL Total Bilirubin (0.0-1.0) mg/dL Direct Bilirubin (0.0-0.5) mg/dL AST (5-37) U/L ALT (0-40) U/L Alkaline Phosphatase (39-117) U/L Total Protein (6.5-8.0) g/dL Albumin (3.5-5.0) g/dL Lipase (8-78) U/L Urine Color Urine Appearance Urine pH (5.0-9.0) Ur Specific [place] (1.005-1.025) Urine Protein (Neg-Trace) mg/dL Urine Glucose (UA) (Negative) mg/dL Urine Ketones (Negative) mg/dL Urine Blood (Negative) Urine Nitrite (Negative) Ur Leukocyte Esterase (Negative) Urine RBC (0-2) /HPF Urine WBC (0-5) /HPF Ur Squamous Epith Cells (0-2) /HPF Urine Bacteria (None Seen) Hyaline Casts (0-2) /LPF Ethyl Alcohol mg/dL External Record Review External record reviewed: Inpatient record, Office record and Outpatient record Discharge Plan Discharge Clinical Impression: Alcohol use disorder, Alcohol intoxication, Hyperglycemia Patient Disposition: Xfer Inpatient Rehab Fac Transfer Details: driving to [facility] for detox Instructions: Abuse of Alcohol (DC), Alcohol Intoxication (ED), Alcohol Use Disorder (ED), Alcohol Withdrawal (DC), At-Risk Alcohol Use (ED), Diabetic Hyperglycemia (ED) Additional Instructions: Please go directly to [facility], do not stop anywhere on the way. Return to the ED with any new or worsening symptoms. Prescriptions: No Action Glucagon Emergency Kit (human) 1 mg recon soln 1 mg subcut Q20M PRN (Reason: hypoglycemia) Qty: 1 0RF Rx Instructions: until target blood sugar attained lisinopril 20 mg tablet 20 mg PO DAILY sertraline 100 mg tablet 100 mg PO DAILY thiamine HCl (vitamin B1) 100 mg tablet 100 mg PO DAILY metformin 1,000 mg tablet 1,000 mg PO BID aspirin 81 mg tablet,chewable 1 tab PO DAILY rosuvastatin 40 mg tablet 40 mg PO BEDTIME insulin glargine [Lantus Solostar U-100 Insulin] 100 unit/mL (3 mL) insulin pen 15 unit subcut BEDTIME Print Language: Japanese
[2024-03-04 14:34] LABS: Glucose, Whole Blood 393 mg/dL (60-115)
[2024-03-04 14:34] LABS: MANUAL DIFF FLAG NO
[2024-03-04 14:35] LABS: Basophils Percent Auto 0.7 % (0-2); Eosinophils Absolute Auto 0.3 X10*3/uL (0.0-0.4); Eosinophils Percent Auto 4.4 % (0-4); Hematocrit 41.1 % (42.0-52.0); Hemoglobin 14.8 g/dl (14.0-18.0); Imm Gran Abs Auto 0.04 X10*3/uL (0.00-0.03); Imm Gran Pct Auto 0.7 % (0.0-0.4); Lymphocytes Absolute Auto 2.3 X10*3/uL (1.2-4.9); Lymphocytes Percent Auto 40.1 % (20-40); Mean Corpuscular Hemoglobin 26.8 pg (27.0-33.0); Mean Corpuscular Volume 74.3 fL (80.0-98.0); Mean Platelet Volume 8.7 fL (9.4-12.4); Monocytes Absolute Auto 0.2 X10*3/uL (0.1-1.2); Monocytes Percent Auto 3.1 % (2-11); Neutrophils Absolute Auto 2.9 x10*3/uL (2.0-8.3); Platelet Count 277 X10*3/uL (160-400); Red Blood Count 5.53 X10*6/uL (4.60-5.80); Red Cell Distribution Width 14.2 % (11.0-16.0); White Blood Count 5.7 X10*3/uL (4.8-10.8)
[2024-03-04 14:36] LABS: Appearance Urine Clear; Color Urine Yellow; Glucose Urine UA >=1000 mg/dL (Negative); Leukocyte Esterase Urine Negative (Negative); Nitrite Urine Negative (Negative); PH 5.5 (5.0-9.0); Specific Gravity - Urine >= 1.030 (1.005-1.025); UMIC TRIGGER UACC YES; Urine Blood Negative (Negative); Urine Ketones Negative (Negative); Urine Protein Trace mg/dL (Neg-Trace)
[2024-03-04 14:40] LABS: Bacteria Urine None Seen (None Seen); Hyaline Casts Urine 0-2 /LPF (0-2); RBC Urine 0-2 /HPF (0-2); Squamous Epithelial Cell Urine 0-2 /HPF (0-2); WBC Urine 0-5 /HPF (0-5)
[2024-03-04 15:10] LABS: Alanine Aminotransferase 42 U/L (0-40); Albumin Level 4.5 g/dL (3.5-5.0); Alkaline Phosphatase 74 U/L (39-117); Anion Gap 21 (12-20); Aspartate Amino Transferase 50 U/L (5-37); Bilirubin Direct < 0.2 mg/dL (0.0-0.5); Bilirubin Total 0.2 mg/dL (0.0-1.0); Blood Urea Nitrogen 15 mg/dL (9-16); Calcium 9.6 mg/dL (8.4-10.2); Carbon Dioxide 21 mmol/L (22-29); Chloride 102 mmol/L (96-108); Creatinine Clr Calc Pharmacy 62.7; Estimated Glomerular Filt Rate 57; Ethanol 366 mg/dL; Glucose Random 476 mg/dL (60-115); Lipase 43 U/L (8-78); Potassium 4.2 mmol/L (3.3-5.1); Sodium 140 mmol/L (135-145); Total Protein 7.8 g/dL (6.5-8.0)
[2024-03-04 15:19] VITALS: BP 113/67; PULSE 99; RESP 20; TEMP 37.3; O2SAT 92
--- NOTE | 2024-03-04 15:44 | PC.NURSE ---
pt presents to dept seeking detox from alcohol. per patient consumes up to a 12 pack, hard liquor, and a lot of weed . pt speech is slurred, requiring redirection to answer t/w questions. pt sts that he needs to do something, [he] can't do this any more denies SI/HI at this time. Pt denies hx of seizures or any withdrawal symptoms. pt awaiting provider evaluation. pt has consumed a burger and fries since arriving in dept, call lozano within reach
[2024-03-04] MEDS: Insulin Lispro 100 UNIT/ML 3 ML VIAL SUBCUT (16:34)
[2024-03-04] MEDS: 0.9 % Sodium Chloride 1,000 ML 999 ML IV (16:38)
[2024-03-04 18:57] VITALS: BP 146/96; PULSE 85; RESP 18; TEMP 36.7; O2SAT 96
[2024-03-04 19:35] LABS: Glucose, Whole Blood 346 mg/dL (60-115)
[2024-03-04 20:05] VITALS: BP 159/105; PULSE 88; RESP 18; O2SAT 96
[2024-03-04] MEDS: Acetaminophen 325 MG TABLET 975 MG PO (20:35)
--- NOTE | 2024-03-04 20:35 | PC.NURSE ---
pt endorsing 5/10 BARRETT. Verbal read back order for tylenol placed. Medication administered as per DEC. effectiveness pending. Completed home medication list, pt reports he has not taken his medications in 10 days
[2024-03-04] MEDS: Insulin Glargine,Hum.rec.anlog 100 UNIT/ML 10 ML VIAL 15 UNIT SUBCUT (21:39)
[2024-03-04] MEDS: metFORMIN HCl 1,000 MG TABLET 1000 MG PO (21:40)
[2024-03-04] MEDS: LORazepam 1 MG TABLET PO (23:57)
[2024-03-05] VITALS (8 sets, daily range): BP systolic 149–172; BP diastolic 87–113; PULSE 74–98; RESP 14–18; TEMP 36.2–36.9; O2SAT 95–99
[2024-03-05] MEDS: PHENobarbitaL sodium 130 MG/ML IM ONCE 354 MG IM (06:37)
--- NOTE | 2024-03-05 06:42 | PC.NURSE ---
1st dos pheno administered in bilateral deltoids.
[2024-03-05 07:23] LABS: Glucose, Whole Blood 218 mg/dL (60-115)
[2024-03-05] MEDS: lisinopriL 20 MG TABLET PO (08:15)
[2024-03-05] MEDS: Aspirin 81 MG TAB.CHEW PO (08:15)
[2024-03-05] MEDS: Thiamine HCL 100 MG TABLET PO (08:15)
[2024-03-05] MEDS: metFORMIN HCl 1,000 MG TABLET 1000 MG PO (08:15)
[2024-03-05] MEDS: Sertraline HCL 100 MG TABLET PO (08:18)
[2024-03-05] MEDS: PHENobarbitaL sodium 130 MG/ML VIAL IM Q3Hx2 265 MG IM ×2 (09:13→12:49)
--- NOTE | 2024-03-05 12:03 | PC.NURSE ---
Assumed care of this patient at 1100, Patient resting quietly on stretcher at this time, no signs of active withdrawal, on pheno IM taper, waiting for detox placement.
--- NOTE | 2024-03-05 13:33 | MHC.RECOVRN ---
Met with pt in ED 20 who was requesting detox from ETOH. Received assist from stapler machine Clark. Pt reports he has been drinking 3-4 beers and 1/2 liter of whisky daily and wants to go to detox. He at first stated he would go anywhere but when potential bed secured at [facility] he reported he would rather be closer to home if possible. Also [facility] had no sp. sp. staff or ability to communicate with sp. sp patients. T/W performed bed search as follows: e mail sent to [facility], [facility]-no beds available. [facility] no current beds but ones possibly opening-1` staff sp. sp. will give this info to pt for decision. [facility]-no answer. Faxed referral to [facility] and [facility] with information on how to reach Care Team if pt. appropriate. List of detox facilities provided to pt. if he d/c for f/u. Report to Care Team.
--- NOTE | 2024-03-05 16:21 | MHC.CARE ---
Pt accepted to [facility]. Pt's partner at bedside and agrees to transport him to facility. CARE team informed provider, SWEETIE Saab
== END 2024-03-05 16:46 ==
PROVIDERS: Physician Assistant Medical; Emergency Provider Emergency Medicine
DX: F10.920 Alcohol use, unspecified with intoxication, uncomplicated (principal); Y90.8 Blood alcohol level of 240 mg/100 ml or more; E11.65 Type 2 diabetes mellitus with hyperglycemia; Z79.4 Long term (current) use of insulin; Z79.82 Long term (current) use of aspirin; Z79.84 Long term (current) use of oral hypoglycemic drugs; Z79.02 Long term (current) use of antithrombotics/antiplatelets; Z79.899 Other long term (current) drug therapy
CPT/HCPCS: 36415; 80048; 80076; 80307; 81001; 82947; 83690; 85025; 96372; 99285; J2560

== ENCOUNTER 2024-05-01 14:42 | Emergency (ER) | payer MEDICAID, SELFPAY ==
[2024-05-01] VITALS (7 sets, daily range): BP systolic 158–199; BP diastolic 93–123; PULSE 57–78; RESP 14–20; TEMP 35.1–36.9; O2SAT 97–100; BMI 30.2
--- NOTE | ~2024-05-01 | XR_ITS ---
EXAMINATION: PORTABLE CHEST 1 VIEW CLINICAL INFORMATION: Dizziness. COMPARISON: 11/29/2022. TECHNIQUE: Portable frontal view of the chest was obtained. FINDINGS: The lungs are well expanded. Mild chronic appearing reticular markings at the bases but no superimposed focal infiltrate, effusion, edema, or pneumothorax. Cardiac and mediastinal silhouettes are within normal limits for technique. No acute bony abnormality seen. XR/XR chest 1V IMPRESSION: No evidence of acute disease.
--- NOTE | ~2024-05-01 | CT_ITS ---
EXAMINATION: CT head/brain wo IV con CLINICAL INFORMATION: Reason for Exam dizziness COMPARISON: None. TECHNIQUE: Contiguous axial imaging was performed from the skull base to vertex without intravenous contrast. Sagittal and coronal reformatted images were obtained. This CT examination was performed using dose optimization techniques as appropriate, variously including the following: * Automated exposure control * Adjustment of mA and/or kV according to patient size (this includes techniques or standardized protocols for targeted exams where dose is matched to indication/reason for exam; i.e. extremities or head) Use of iterative reconstruction technique DLP: 721.87 mGy-cm FINDINGS: No acute osseous or soft tissue abnormality. The mastoids are clear. Mild to moderate mucosal thickening of the visualized paranasal sinuses. There is no evidence of acute intracranial hemorrhage or territorial infarction. No abnormal mass effect or midline shift is seen. Nelson to white matter differentiation is well preserved. No extra-axial fluid collections are identified. No hydrocephalus. No significant volume loss. Patchy periventricular and deep white matter hypoattenuation is consistent with mild small vessel ischemic changes. CT/CT head/brain wo IV con IMPRESSION: No acute intracranial abnormality including hemorrhage, mass effect, hydrocephalus, or acute territorial edematous infarction.
--- NOTE | 2024-05-01 14:45 | ECG_ITS ---
Test Reason : DIZZINESS Blood Pressure : / mmHG Vent. Rate : 068 BPM Atrial Rate : 068 BPM P-R Int : 154 ms QRS Dur : 106 ms QT Int : 436 ms P-R-T Axes : 059 029 032 degrees QTc Int : 463 ms Normal sinus rhythm Increased R/S ratio in V1, consider early transition or posterior infarct Abnormal ECG When compared with ECG of 29-NOV-2022 14:26, Vent. rate has decreased BY 52 BPM QRS duration has increased T wave amplitude has increased in Lateral leads Referred By: Generic ED Physician Electronically Signed By:Aaron Bolaños
[2024-05-01 15:29] LABS: MANUAL DIFF FLAG NO
[2024-05-01 15:39] LABS: Basophils Percent Auto 0.7 % (0-2); Eosinophils Absolute Auto 0.2 X10*3/uL (0.0-0.4); Eosinophils Percent Auto 3.8 % (0-4); Hematocrit 39.5 % (42.0-52.0); Hemoglobin 13.5 g/dl (14.0-18.0); Imm Gran Abs Auto 0.05 X10*3/uL (0.00-0.03); Imm Gran Pct Auto 0.8 % (0.0-0.4); Lymphocytes Absolute Auto 2.1 X10*3/uL (1.2-4.9); Lymphocytes Percent Auto 34.1 % (20-40); Mean Corpuscular HGB Conc 34.2 g/dl (31.0-36.0); Mean Corpuscular Hemoglobin 26.2 pg (27.0-33.0); Mean Corpuscular Volume 76.7 fL (80.0-98.0); Mean Platelet Volume 9.2 fL (9.4-12.4); Monocytes Absolute Auto 0.6 X10*3/uL (0.1-1.2); Monocytes Percent Auto 9.3 % (2-11); Neutrophils Absolute Auto 3.1 x10*3/uL (2.0-8.3); Neutrophils Percent Auto 51.3 % (45-73); Platelet Count 221 X10*3/uL (160-400); Red Blood Count 5.15 X10*6/uL (4.60-5.80); Red Cell Distribution Width 14.2 % (11.0-16.0)
--- NOTE | 2024-05-01 15:39 | ED_ITS ---
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 Duckworth HPI narrative: 54-year-old male who presented to the emergency department for evaluation of sudden onset of dizziness and room spinning while he was preparing to go to work, on arrival patient is diaphoretic, feel very dizzy, found to be hypothermic. no CP, no SOB, no abdominal pain, no headache, no blurry vision, no weakness, no numbness, no coughing, no SOB, no dysuria or frequency urination. No subjective fever or chills. Patient initially found to have BS of 61 and was given orange juice to drink in triage, patient takes Glucophage and 16 units of Lantus every morning to control his diabetes patient did not eat today after give himself the insulin. While patient in the ED symptoms started to improve. Admitted to drinking alcohol last night declined using any drugs. Related Data Home Medications ?Medication ?Instructions ?Recorded ?Confirmed aspirin 81 mg chewable tablet 1 tab PO DAILY 03/04/24 03/04/24 insulin glargine 100 unit/mL (3 15 unit subcut BEDTIME 03/04/24 03/04/24 mL) subcutaneous pen (Lantus Solostar U-100 Insulin) lisinopril 20 mg tablet 20 mg PO DAILY 03/04/24 03/04/24 metformin 1,000 mg tablet 1,000 mg PO BID 03/04/24 03/04/24 rosuvastatin 40 mg tablet 40 mg PO BEDTIME 03/04/24 03/04/24 sertraline 100 mg tablet 100 mg PO DAILY 03/04/24 03/04/24 thiamine HCl (vitamin B1) 100 mg 100 mg PO DAILY 03/04/24 03/04/24 tablet Previous Rx's ?Medication ?Instructions ?Recorded glucagon 1 mg solution for 1 mg subcut Q20M PRN hypoglycemia 11/14/22 injection (Glucagon Emergency Kit) #1 ea Allergies Allergy/AdvReac Type Severity Reaction Status Date / Time Penicillins [PENICILLINS] Allergy Mild RASH Verified 05/01/24 15:09 sildenafil [Viagra] AdvReac Unknown flush, Verified 05/01/24 15:09 headaches PENICILLIN Allergy Unknown rash Uncoded 05/01/24 15:09 Review of Systems 2 Review of Systems: All other systems are reviewed and are negative Constitutional: Reports as per HPI and Reports no additional constitutional complaints Eyes: Reports as per HPI and Reports no additional eye complaints Reports system reviewed and no additional complaints, except as documented Cardiovascular: Reports as per HPI and Reports no additional cardiovascular complaints Respiratory: Reports as per HPI and Reports no additional respiratory complaints Gastrointestinal: Reports as per HPI and Reports no additional gastrointestinal complaints Genitourinary: Reports no additional female genitourinary complaints Musculoskeletal: Reports no additional musculoskeletal complaints Skin/Breast: Reports system reviewed and no additional complaints, except as docu Psychiatric: Reports no additional psychiatric complaints Endocrine: Reports no additional endocrine complaints Hematologic/Lymphatic: Reports no additional hematologic/lymphatic complaints Allergic/Immunologic: Reports no additional allergic/immunologic complaints Reports system reviewed and no additional complaints, except as documented and Reports Abnormal speech present [facility] Past Medical History Medical History Type 2 diabetes mellitus Social History Social History Alcohol intake: current Alcohol intake frequency: 3 or more drinks per day Alcohol type: beer and hard liquor Smoked in Last 30 Days: No Use of substances other than those prescribed or required for medical reasons: Yes Substance Use Type: Crack/Cocaine Advance Directives: No Advance Directives Information Provided: No Do you have a plan to hurt others: No Plan Physical Exam ED Vital Signs: Vital Signs - 24 hr 05/01/24 15:07 05/01/24 16:11 05/01/24 16:11 Temperature 95.1 F L Pulse Rate 58 57 Respiratory Rate 20 15 Blood Pressure 199/123 H 176/98 H Pulse Oximetry 99 98 98 Oxygen Delivery Method Room Air Room Air 05/01/24 17:15 05/01/24 17:50 05/01/24 18:49 Temperature 96.4 F L 97.8 F Pulse Rate 70 77 64 Respiratory Rate 16 14 16 Blood Pressure 172/99 H 159/96 H 169/94 H Pulse Oximetry 98 100 99 Oxygen Delivery Method Room Air Room Air Room Air 05/01/24 18:51 Temperature Pulse Rate 63 Respiratory Rate 20 Blood Pressure 158/93 H Pulse Oximetry 99 Oxygen Delivery Method Room Air BMI result Body Mass Index 30.2 Vital signs have been reviewed and appear to be correct. Blood pressure elevated. Heart rate normal. Respiratory rate normal. Temperature normal. Oxygen saturation normal. Appearance: Alert. Oriented X3. No acute distress. Head: Normal external exam. Normocephalic. Atraumatic. No Terry signs noted. No raccoon eyes noted Eyes: PERRLA. EOMI. Conjunctiva and sclera normal. Eyelids normal. ENT: TM's Normal. Pharynx normal. Uvula midline. Moist mucous membranes. No trismus noted. No drooling noted. No muffled voice noted. Neck: Normal inspection. Neck supple. FROM. No adenopathy. Thyroid Normal. No meningeal signs. No neck mass noted. CVS: Normal heart rate and rhythm. Heart sound normal. No murmurs noted. Pulses normal throughout. Respiratory: No respiratory distress. Painless inspiration. Breath sounds normal. No wheezes/rales/rhonchi noted. Chest nontender. No accessory muscle usage noted or decreased air movement noted. Abdomen: Soft and nontender. Bowel sounds normal in all 4 quadrants. No distention noted. No organomegaly noted. No visible injury noted. Back: No CVA tenderness. Full range of motion noted. Skin: Skin warm and dry. Normal skin color. Normal skin turgor. No rashes/lesions/lacerations noted. Extremities: No lower extremity edema. Extremities exhibit normal range of motion. Extremities nontender. Neuro: Oriented X 3. Cranial nerve exam: II-XII are grossly intact No motor deficit. No sensory deficit. Reflexes normal. Course Reevaluation(s) Reevaluation #1: Patient found to be hypoglycemic again of 74 , patient is AAO x3 tolerated p.o. intake. BS is more stable now patient has no symptoms and feels better able to ambulate in the emergency department unsteady gait, no neurological deficit. Patient was educated about following diabetic diet regimen after administering his insulin To avoid episodes of hypoglycemia. Time: 20:46 Medications Administered Discontinued Medications Generic Name Dose Route Start Last Admin Trade Name Freq PRN Reason Stop Dose Admin Sodium Chloride 1,000 mls @ 999 mls/hr 05/01/24 15:37 05/01/24 17:44 Ns IV 05/01/24 16:37 Infused .Q1H1M ONE Infusion Sodium Chloride 2,547 mls @ 2,547 mls/hr 05/01/24 17:01 05/01/24 18:45 Ns 30 ml/kg infuse over 1 hr (2547 ml) 05/01/24 18:00 Infused IV Infusion .Q1H STA Medical Decision Making Differential Diagnosis Differential Diagnoses: The differential diagnosis associated with the presentation includes ( Hypoglycemia, hypovolemia, electrolyte derangement, sepsis, severe anemia , intracranial bleed, stroke.) Admission/Observation Consideration of admission/observation: Escalation of care including admission/observation considered Consult Healthcare Provider Management of the patient was discussed with: Hospitalist ( Dr. Cary) Lab Data MDM Lab Attestation statement: I reviewed the patient's lab results. 05/01/24 15:25 05/01/24 15:25 Labs: Lab Results 05/01/24 05/01/24 05/01/24 Range/Units 14:49 15:25 15:52 WBC 6.0 (4.8-10.8) X10*3/uL RBC 5.15 (4.60-5.80) X10*6/uL Hgb 13.5 L (14.0-18.0) g/dl Hct 39.5 L (42.0-52.0) % MCV 76.7 L (80.0-98.0) fL MCH 26.2 L (27.0-33.0) pg MCHC 34.2 (31.0-36.0) g/dl RDW 14.2 (11.0-16.0) % Plt Count 221 (160-400) X10*3/uL MPV 9.2 L (9.4-12.4) fL Immature Gran % (Auto) 0.8 H (0.0-0.4) % Neut % (Auto) 51.3 (45-73) % Lymph % (Auto) 34.1 (20-40) % [place] % (Auto) 9.3 (2-11) % Eos % (Auto) 3.8 (0-4) % Baso % (Auto) 0.7 (0-2) % Lymph # (Auto) 2.1 (1.2-4.9) X10*3/uL [place] # (Auto) 0.6 (0.1-1.2) X10*3/uL Eos # (Auto) 0.2 (0.0-0.4) X10*3/uL Baso # (Auto) 0.0 (0.0-0.2) X10*3/uL Abs Immat Gran (auto) 0.05 H (0.00-0.03) X10*3/uL Absolute Neuts (auto) 3.1 (2.0-8.3) x10*3/uL Absolute Nucleated RBC 0.000 (0.0-0.012) X10*3/uL Nucleated RBC % (auto) 0.0 (0.0-0.2) /100WBC PT 11.4 (11.1-13.3) SEC INR 0.9 (0.9-1.1) Sodium 142 (135-145) mmol/L Potassium 3.5 (3.3-5.1) mmol/L Chloride 107 (96-108) mmol/L Carbon Dioxide 25 (22-29) mmol/L Anion Gap 14 (12-20) BUN 17 H (9-16) mg/dL Creatinine 0.92 (0.5-1.4) mg/dL Estim Creat Clear Calc 94.8 Estimated GFR > 60 POC Glucose 71 (60-115) mg/dL Random Glucose 119 H (60-115) mg/dL Lactic Acid 3.8 H* (0.5-2.0) mmol/L Lactic Acid F/U @ 2Hr (0.5-2.0) mmol/L Calcium 9.4 (8.4-10.2) mg/dL Magnesium 1.6 (1.6-2.6) mg/dL Total Bilirubin 0.3 (0.0-1.0) mg/dL Direct Bilirubin 0.1 (0.0-0.5) mg/dL AST 26 (5-37) U/L ALT 19 (0-40) U/L Alkaline Phosphatase 58 (39-117) U/L Troponin I High Sens 13.1 (<3.5-35.0) ng/L Total Protein 7.4 (6.5-8.0) g/dL Albumin 4.5 (3.5-5.0) g/dL Lipase 31 (8-78) U/L Urine Opiates Screen (Not Detect) Ur Buprenorphine Scrn (Not Detect) ng/mL Ur Oxycodone Screen (Not Detect) ng/mL Urine Methadone Screen (Not Detect) ng/mL Urine Fentanyl Screen (Not Detect) Ur Barbiturates Screen (Not Detect) Ur Phencyclidine Scrn (Not Detect) Ur Amphetamines Screen (Not Detect) U Benzodiazepines Scrn (Not Detect) Urine Cocaine Screen (Not Detect) U Marijuana (THC) Screen (Not Detect) Ethyl Alcohol < 10 mg/dL 05/01/24 05/01/24 05/01/24 Range/Units 17:51 18:16 18:48 WBC (4.8-10.8) X10*3/uL RBC (4.60-5.80) X10*6/uL Hgb (14.0-18.0) g/dl Hct (42.0-52.0) % MCV (80.0-98.0) fL MCH (27.0-33.0) pg MCHC (31.0-36.0) g/dl RDW (11.0-16.0) % Plt Count (160-400) X10*3/uL MPV (9.4-12.4) fL Immature Gran % (Auto) (0.0-0.4) % Neut % (Auto) (45-73) % Lymph % (Auto) (20-40) % [place] % (Auto) (2-11) % Eos % (Auto) (0-4) % Baso % (Auto) (0-2) % Lymph # (Auto) (1.2-4.9) X10*3/uL [place] # (Auto) (0.1-1.2) X10*3/uL Eos # (Auto) (0.0-0.4) X10*3/uL Baso # (Auto) (0.0-0.2) X10*3/uL Abs Immat Gran (auto) (0.00-0.03) X10*3/uL Absolute Neuts (auto) (2.0-8.3) x10*3/uL Absolute Nucleated RBC (0.0-0.012) X10*3/uL Nucleated RBC % (auto) (0.0-0.2) /100WBC PT (11.1-13.3) SEC INR (0.9-1.1) Sodium (135-145) mmol/L Potassium (3.3-5.1) mmol/L Chloride (96-108) mmol/L Carbon Dioxide (22-29) mmol/L Anion Gap (12-20) BUN (9-16) mg/dL Creatinine (0.5-1.4) mg/dL Estim Creat Clear Calc Estimated GFR POC Glucose 64 (60-115) mg/dL Random Glucose (60-115) mg/dL Lactic Acid (0.5-2.0) mmol/L Lactic Acid F/U @ 2Hr 2.5 H* (0.5-2.0) mmol/L Calcium (8.4-10.2) mg/dL Magnesium (1.6-2.6) mg/dL Total Bilirubin (0.0-1.0) mg/dL Direct Bilirubin (0.0-0.5) mg/dL AST (5-37) U/L ALT (0-40) U/L Alkaline Phosphatase (39-117) U/L Troponin I High Sens (<3.5-35.0) ng/L Total Protein (6.5-8.0) g/dL Albumin (3.5-5.0) g/dL Lipase (8-78) U/L Urine Opiates Screen Not Detected (Not Detect) Ur Buprenorphine Scrn Not Detected (Not Detect) ng/mL Ur Oxycodone Screen Not Detected (Not Detect) ng/mL Urine Methadone Screen Not Detected (Not Detect) ng/mL Urine Fentanyl Screen Not Detected (Not Detect) Ur Barbiturates Screen Not Detected (Not Detect) Ur Phencyclidine Scrn Not Detected (Not Detect) Ur Amphetamines Screen Not Detected (Not Detect) U Benzodiazepines Scrn Not Detected (Not Detect) Urine Cocaine Screen Not Detected (Not Detect) U Marijuana (THC) Screen Not Detected (Not Detect) Ethyl Alcohol mg/dL 05/01/24 05/01/24 05/01/24 Range/Units 19:03 20:04 20:42 WBC (4.8-10.8) X10*3/uL RBC (4.60-5.80) X10*6/uL Hgb (14.0-18.0) g/dl Hct (42.0-52.0) % MCV (80.0-98.0) fL MCH (27.0-33.0) pg MCHC (31.0-36.0) g/dl RDW (11.0-16.0) % Plt Count (160-400) X10*3/uL MPV (9.4-12.4) fL Immature Gran % (Auto) (0.0-0.4) % Neut % (Auto) (45-73) % Lymph % (Auto) (20-40) % [place] % (Auto) (2-11) % Eos % (Auto) (0-4) % Baso % (Auto) (0-2) % Lymph # (Auto) (1.2-4.9) X10*3/uL [place] # (Auto) (0.1-1.2) X10*3/uL Eos # (Auto) (0.0-0.4) X10*3/uL Baso # (Auto) (0.0-0.2) X10*3/uL Abs Immat Gran (auto) (0.00-0.03) X10*3/uL Absolute Neuts (auto) (2.0-8.3) x10*3/uL Absolute Nucleated RBC (0.0-0.012) X10*3/uL Nucleated RBC % (auto) (0.0-0.2) /100WBC PT (11.1-13.3) SEC INR (0.9-1.1) Sodium (135-145) mmol/L Potassium (3.3-5.1) mmol/L Chloride (96-108) mmol/L Carbon Dioxide (22-29) mmol/L Anion Gap (12-20) BUN (9-16) mg/dL Creatinine (0.5-1.4) mg/dL Estim Creat Clear Calc Estimated GFR POC Glucose 101 134 H 145 H (60-115) mg/dL Random Glucose (60-115) mg/dL Lactic Acid (0.5-2.0) mmol/L Lactic Acid F/U @ 2Hr (0.5-2.0) mmol/L Calcium (8.4-10.2) mg/dL Magnesium (1.6-2.6) mg/dL Total Bilirubin (0.0-1.0) mg/dL Direct Bilirubin (0.0-0.5) mg/dL AST (5-37) U/L ALT (0-40) U/L Alkaline Phosphatase (39-117) U/L Troponin I High Sens (<3.5-35.0) ng/L Total Protein (6.5-8.0) g/dL Albumin (3.5-5.0) g/dL Lipase (8-78) U/L Urine Opiates Screen (Not Detect) Ur Buprenorphine Scrn (Not Detect) ng/mL Ur Oxycodone Screen (Not Detect) ng/mL Urine Methadone Screen (Not Detect) ng/mL Urine Fentanyl Screen (Not Detect) Ur Barbiturates Screen (Not Detect) Ur Phencyclidine Scrn (Not Detect) Ur Amphetamines Screen (Not Detect) U Benzodiazepines Scrn (Not Detect) Urine Cocaine Screen (Not Detect) U Marijuana (THC) Screen (Not Detect) Ethyl Alcohol mg/dL Independent Interpretation I performed an independent interpretation of an: Plain X-Ray ( Chest: No acute intrathoracic pathology.) and CT Scan ( head: No acute intracranial pathology.) Radiology Impression Discussion of test interpretation with radiology: I have reviewed the radiologist's reading. Chronic Conditions Patient?s care impacted by: Diabetes Discharge Plan Discharge Clinical Impression: Hypoglycemia Patient Disposition: Home, Self-Care Instructions: Hypoglycemia in a Person with Diabetes (ED) Additional Instructions: follow your diabetic diet regimen after administer insulin. Prescriptions: No Action Glucagon Emergency Kit (human) 1 mg recon soln 1 mg subcut Q20M PRN (Reason: hypoglycemia) Qty: 1 0RF Rx Instructions: until target blood sugar attained lisinopril 20 mg tablet 20 mg PO DAILY sertraline 100 mg tablet 100 mg PO DAILY thiamine HCl (vitamin B1) 100 mg tablet 100 mg PO DAILY metformin 1,000 mg tablet 1,000 mg PO BID aspirin 81 mg tablet,chewable 1 tab PO DAILY rosuvastatin 40 mg tablet 40 mg PO BEDTIME insulin glargine [Lantus Solostar U-100 Insulin] 100 unit/mL (3 mL) insulin pen 15 unit subcut BEDTIME Print Language: Malagasy
[2024-05-01 15:41] LABS: INTERNATIONAL NORM RATIO 0.9 (0.9-1.1); Prothrombin Time 11.4 SEC (11.1-13.3)
--- OUTSIDE RECORDS SUMMARY | 2024-05-01 15:48 | XMS_ITS | Continuity of Care Document ---
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 Name Role Phone Not on Staff, PCP Primary Care Physician Unavail able Encounter [facility] Date(s): 05/09/20 - 05/09/[address] [address]- [facility] Encounter Diagnosis Alcohol use(Final) - 05/09/20 Discharge Disposition: A-D/C Home Attending Physician: Esmer Layne MD Admitting Physician: Esmer Layne MD Referring Physician: Not on Staff, Referring MD Allergies, Adverse Reactions, Alerts Substance Reaction Severity Status penicillin Active Vital Signs Most recent to oldest [Reference Range]: 1 2 3 Oxygen Saturation [94-100 %] 97 % (05/09/20 10:00 PM) 98 % (05/09/20 4:57 PM) 95 % (05/09/20 2:38 PM) Pulse Rate [55-90 bpm] 82 bpm (05/09/20 10:00 PM) 88 bpm (05/09/20 4:57 PM) 94 bpm *H* (05/09/20 2:38 PM) Blood Pressure [90-138/55-84 mm Hg] 165/110mm Hg *H* (05/09/20 10:00 PM) 150/96mm Hg *H* (05/09/20 4:57 PM) 166/117mm Hg *H* (05/09/20 2:38 PM) Respiratory Rate [16-30 br/min] 18 br/min (05/09/20 10:00 PM) 18 br/min (05/09/20 4:57 PM) 18 br/min (05/09/20 2:38 PM) Temperature [96.8-100.4 DegF] 97.8 DegF (05/09/20 10:00 PM) 98.4 DegF (05/09/20 2:38 PM) Mode of Delivery (Oxygen) Room air (05/09/20 10:00 PM) Room air (05/09/20 4:57 PM) Room air (05/09/20 2:38 PM) Blood pressure sites Arm, right (05/09/20 10:00 PM) Arm, left (05/09/20 2:38 PM) Temperature Route Oral (05/09/20 10:00 PM) Oral (05/09/20 2:38 PM)
--- OUTSIDE RECORDS SUMMARY | 2024-05-01 15:48 | XMS_ITS | Continuity of Care Document ---
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 Role Phone Not on Staff, PCP Primary Care Physician Unavail able Encounter [facility] Date(s): 04/02/24 - 04/03/[address] [address]- Encounter Diagnosis Alcohol use(Final) - 04/02/24 Hyperglycemia(Final) - 04/02/24 Discharge Disposition: A-D/C Home Attending Physician: Nadira Reynolds MD Admitting Physician: Nadira Reynolds MD Referring Physician: Not on Staff, Referring MD Allergies, Adverse Reactions, Alerts Substance Reaction Severity Status penicillin Active Medications Lantus Solostar Pen 100 units/mL subcutaneous solution See Instructions, INJECT 15 UNITS SUBCUTANEOUSLY DAILY AT BEDTIME, # 10 mL, 0 Refills, Maintenance,04/03/24 22:48:00 EDT, [facility] Start Date: 04/03/24 Status: Ordered metFORMIN 500 mg oral tablet 1 tablet = 500 mg, By Mouth, 2 times a day, with meals, # 60 tablet, 0 Refills, Maintenance, 04/02/24 22:41:00 EDT, Tablet, Partial fill upon patient request if the prescription is for a schedule II opioid drug. Start Date: 04/02/24 Stop Date: 05/02/24 Status: Ordered Vital Signs Most recent to oldest [Reference Range]: 1 2 Weight 84.8 kg (04/02/24 7:34 PM) Oxygen Saturation [94-100 %] 100 % (04/02/24 7:34 PM) 100 % (04/02/24 5:50 PM) Pulse Rate [55-90 bpm] 89 bpm (04/02/24 7:34 PM) 88 bpm (04/02/24 5:50 PM) Blood Pressure [90-138/55-84 mm Hg] 132/ 98mm Hg (04/02/24 7:34 PM) 138/98mm Hg (04/02/24 5:50 PM) Respiratory Rate [16-30 br/min] 16 br/mi n (04/02/24 7:34 PM) 16 br/min (04/02/24 5:50 PM) Temperature [96.8-100.4 DegF] 97.9 DegF (04/02/24 7:34 PM) 97.8 DegF (04/02/24 5:50 PM) Mode of Delivery (Oxygen) Room air (04/02/24 7:34 PM) Temperature Route Oral (04/02/24 7:34 PM) Oral (04/02/24 5:50 PM) EKG study * Event Display: EKG Authored Date: Patient Care team information Care Team Personnel Name: Not on Staff, PCP Position: S Physician (General Medicine) Member Role: PCP
[2024-05-01 15:50] LABS: Alanine Aminotransferase 19 U/L (0-40); Albumin Level 4.5 g/dL (3.5-5.0); Alkaline Phosphatase 58 U/L (39-117); Anion Gap 14 (12-20); Aspartate Amino Transferase 26 U/L (5-37); Bilirubin Direct 0.1 mg/dL (0.0-0.5); Bilirubin Total 0.3 mg/dL (0.0-1.0); Blood Urea Nitrogen 17 mg/dL (9-16); Calcium 9.4 mg/dL (8.4-10.2); Carbon Dioxide 25 mmol/L (22-29); Chloride 107 mmol/L (96-108); Creatinine Clr Calc Pharmacy 94.8; Estimated Glomerular Filt Rate > 60; Ethanol < 10 mg/dL; Glucose Random 119 mg/dL (60-115); Lipase 31 U/L (8-78); Magnesium 1.6 mg/dL (1.6-2.6); Potassium 3.5 mmol/L (3.3-5.1); Sodium 142 mmol/L (135-145); Total Protein 7.4 g/dL (6.5-8.0)
[2024-05-01 15:52] LABS: Troponin-I High Sensitivity 13.1 ng/L (<3.5-35.0)
[2024-05-01 15:57] LABS: Glucose, Whole Blood 71 mg/dL (60-115)
[2024-05-01] MEDS: 0.9 % Sodium Chloride 1,000 ML 999 ML IV (16:13)
[2024-05-01 16:16] LABS: Lactic Acid 3.8 mmol/L (0.5-2.0)
[2024-05-01 17:56] LABS: Reflex Lactate? Lactic Acid Added
[2024-05-01 17:58] LABS: Glucose, Whole Blood 64 mg/dL (60-115)
--- NOTE | 2024-05-01 18:06 | PC.NURSE ---
pt to receive a total of 2,547cc of normal saline to fulfil his sepsis fluid requirement.
[2024-05-01 18:39] LABS: ~Lactic Acid-LAB USE ONLY 2.5 mmol/L (0.5-2.0)
[2024-05-01 19:06] LABS: Glucose, Whole Blood 101 mg/dL (60-115)
[2024-05-01 19:23] LABS: Amphetamine Screen Urine Not Detected (Not Detect); Barbiturates, Urine Not Detected (Not Detect); Benzodiazepines Screen Urine Not Detected (Not Detect); Buprenorphine Scr Not Detected (Not Detect); Cannabinoid Screen Urine Not Detected (Not Detect); Cocaine Screen Urine Not Detected (Not Detect); Fentanyl, urine Not Detected (Not Detect); Methadone Screen, Urine Not Detected (Not Detect); Opiate Screen Urine Not Detected (Not Detect); Oxycodone Screen Urine Not Detected (Not Detect); Phencyclidine Screen Urine Not Detected (Not Detect)
[2024-05-01 20:08] LABS: Glucose, Whole Blood 134 mg/dL (60-115)
[2024-05-01 20:20] LABS: Reflex Lactate? 2 Y
[2024-05-01 20:45] LABS: Glucose, Whole Blood 145 mg/dL (60-115)
[2024-05-01 21:12] LABS: ~Lactic Acid-LAB USE ONLY 2.5 mmol/L (0.5-2.0)
== END 2024-05-01 21:10 | disposition home or self-care (01) ==
PROVIDERS: Physician Assistant Medical; Emergency Provider Emergency Medicine
DX: E11.649 Type 2 diabetes mellitus with hypoglycemia without coma (principal); R55 Syncope and collapse; R42 Dizziness and giddiness; R11.0 Nausea; R94.31 Abnormal electrocardiogram [ECG] [EKG]; Z79.4 Long term (current) use of insulin; Z79.899 Other long term (current) drug therapy
CPT/HCPCS: 36415; 70450; 71045; 80048; 80076; 80307; 82947; 83605; 83690; 83735; 84484; 85025; 85610; 87040; 93005; 96360; 96361; 99284; 99285

== ENCOUNTER → 2024-05-01 14:45 | Outpatient (BNV) | payer MEDICAID, SELFPAY | PROVIDERS: Emergency Provider Emergency Medicine; Visit Provider Internal Medicine Cardiovascular Disease | DX: R42 Dizziness and giddiness (principal); R94.31 Abnormal electrocardiogram [ECG] [EKG] | CPT/HCPCS: 93010 ==

== ENCOUNTER 2024-06-20 23:44 | Emergency (ER) | payer MEDICAID, SELFPAY ==
[2024-06-20 23:48] VITALS: BP 184/98; PULSE 80; O2SAT 99
[2024-06-21] VITALS (11 sets, daily range): BP systolic 145–199; BP diastolic 87–119; PULSE 76–97; RESP 14–19; TEMP 36.3–36.8; O2SAT 96–98; BMI 29.4
--- NOTE | 2024-06-21 | ECG_ITS ---
Test Reason : HYPERTENSION Blood Pressure : / mmHG Vent. Rate : 081 BPM Atrial Rate : 081 BPM P-R Int : 178 ms QRS Dur : 104 ms QT Int : 380 ms P-R-T Axes : 043 029 022 degrees QTc Int : 441 ms Normal sinus rhythm Normal ECG When compared with ECG of 01-MAY-2024 14:50, No significant change was found Referred By: Generic ED Physician Electronically Signed By:REY CARTER
[2024-06-21 00:41] LABS: Basophils Percent Auto 0.7 % (0-2); Eosinophils Absolute Auto 0.1 X10*3/uL (0.0-0.4); Eosinophils Percent Auto 2.3 % (0-4); Hematocrit 40.9 % (42.0-52.0); Hemoglobin 14.5 g/dl (14.0-18.0); Imm Gran Abs Auto 0.01 X10*3/uL (0.00-0.03); Imm Gran Pct Auto 0.2 % (0.0-0.4); Lymphocytes Absolute Auto 2.3 X10*3/uL (1.2-4.9); Lymphocytes Percent Auto 40.4 % (20-40); MANUAL DIFF FLAG NO; Mean Corpuscular HGB Conc 35.5 g/dl (31.0-36.0); Mean Corpuscular Volume 73.4 fL (80.0-98.0); Mean Platelet Volume 8.7 fL (9.4-12.4); Monocytes Absolute Auto 0.4 X10*3/uL (0.1-1.2); Monocytes Percent Auto 6.2 % (2-11); Neutrophils Absolute Auto 2.9 x10*3/uL (2.0-8.3); Neutrophils Percent Auto 50.2 % (45-73); Platelet Count 218 X10*3/uL (160-400); Red Blood Count 5.57 X10*6/uL (4.60-5.80); Red Cell Distribution Width 13.9 % (11.0-16.0); White Blood Count 5.7 X10*3/uL (4.8-10.8)
--- NOTE | 2024-06-21 00:41 | ED.GENADULT ---
HPI - General Adult General Chief complaint: General Medical Stated complaint: HIGH PB 200/98, HIGH BS 375,NO MEDS X1D PER EMS Time Seen by Provider: 06/21/24 00:26 Source: patient Mode of arrival: ambulatory Limitations: no limitations History of Present Illness ED Provider: Dr. Maribel Matias HPI narrative: patient comes to the emergency room complaining of lightheadedness, not feeling well, generalized malaise. Patient states that he has not compliant with his medications. Patient states he ran out of meds approximately 3 days ago. Patient complaining of high blood pressure, usually takes lisinopril 20 mg but has been out of it for a few days. Worsening depression with no SI or HI, ran out of sertraline 100 mg. Also, patient states that he has been taking metformin every day regularly, still has it at home. However, patient has been afraid of using insulin because sometimes his blood glucose dropped to 60 in is scared to take it. Also, patient will have aspirin and statin medication Related Data Home Medications ?Medication ?Instructions ?Recorded ?Confirmed aspirin 81 mg chewable tablet 1 tab PO DAILY 03/04/24 03/04/24 insulin glargine 100 unit/mL (3 15 unit subcut BEDTIME 03/04/24 03/04/24 mL) subcutaneous pen (Lantus Solostar U-100 Insulin) lisinopril 20 mg tablet 20 mg PO DAILY 03/04/24 03/04/24 metformin 1,000 mg tablet 1,000 mg PO BID 03/04/24 03/04/24 rosuvastatin 40 mg tablet 40 mg PO BEDTIME 03/04/24 03/04/24 sertraline 100 mg tablet 100 mg PO DAILY 03/04/24 03/04/24 thiamine HCl (vitamin B1) 100 mg 100 mg PO DAILY 03/04/24 03/04/24 tablet Previous Rx's ?Medication ?Instructions ?Recorded glucagon 1 mg solution for 1 mg subcut Q20M PRN hypoglycemia 11/14/22 injection (Glucagon Emergency Kit) #1 ea aspirin 81 mg tablet,delayed 81 mg PO DAILY #30 tabs 06/21/24 release insulin glargine 100 unit/mL (3 10 unit (0.1 mL) subcut QPM #15 mL 06/21/24 mL) subcutaneous pen (Lantus Solostar U-100 Insulin) insulin lispro 100 unit/mL 5 unit (0.05 mL) subcut TID #15 mL 06/21/24 subcutaneous pen (Moises Paulson U-100 Insulin lispro) lisinopril 40 mg tablet 40 mg PO DAILY #30 tabs 06/21/24 metformin 1,000 mg tablet 1,000 mg PO BID #60 tabs 06/21/24 rosuvastatin 40 mg tablet 40 mg PO DAILY #30 tabs 06/21/24 sertraline 100 mg tablet 100 mg PO DAILY #30 tabs 06/21/24 thiamine HCl (vitamin B1) 100 mg 100 mg PO BID #60 tabs 06/21/24 tablet Allergies Allergy/AdvReac Type Severity Reaction Status Date / Time Penicillins [PENICILLINS] Allergy Mild RASH Verified 06/21/24 00:06 sildenafil [Viagra] AdvReac Unknown flush, Verified 06/21/24 00:06 headaches PENICILLIN Allergy Unknown rash Uncoded 05/01/24 15:09 Review of Systems Review of Systems: Constitutional : No Weight loss, No Fever, No Chills, No Night Sweats, No Fatigue, No Malaise ENT/Mouth : No Hearing loss, No Ear Pain, No Nasal Congestion, No Sinus Pain, No Hoarseness, No sore throat, No Rhinorrhea, No Swallowing Difficulty Eyes: No Eye Pain, No Swelling, No Redness, No Foreign Body, No Discharge, No Vision Changes Cardiovascular : No Chest Pain, No SOB, No Dyspnea on Exertion, No Orthopnea, No Edema, No Palpitations Respiratory : No Cough, No Sputum, No Wheezing, No Smoke Exposure, No Dyspnea Gastrointestinal : No Nausea, No Vomiting, No Diarrhea, No Constipation, No abdominal Pain, No Hematochezia, No Melena Genitourinary : no irregular bleeding, No Dysuria, No Urinary Frequency, No Hematuria, No Urinary Incontinence, No Urgency, No Flank Pain, No Urinary Flow Changes, No Hesitancy Musculoskeletal : No joint pain, No Myalgias, No Joint Swelling Skin : No Skin Lesions, No rash Neuro : No Weakness, No Numbness, No Paresthesias, No Loss of Consciousness, No Dizziness, No Headache Psych : No Anxiety/Panic, No Depression, No SI/HI/AH/VH, No Social Issues, Heme/Lymph: No Bruising, No Bleeding,No Lymphadenopathy Endocrine : No Polyuria, No Polydipsia, No Temperature Intolerance [facility] Past Medical History Medical History Type 2 diabetes mellitus Social History Social History Alcohol intake: current Alcohol intake frequency: 3 or more drinks per day Alcohol type: hard liquor Smoked in Last 30 Days: No Use of substances other than those prescribed or required for medical reasons: No Substance Use Type: Crack/Cocaine Advance Directives: No Advance Directives Information Provided: No Do you have a plan to hurt others: No Plan Physical Exam ED Vital Signs: Vital Signs - 24 hr 06/21/24 00:04 06/21/24 00:13 Temperature 98.2 F Pulse Rate 86 86 Respiratory Rate 18 18 Blood Pressure 173/108 H 173/108 H Pulse Oximetry 98 98 Oxygen Delivery Method Room Air BMI result Body Mass Index 29.4 Const Other: Appearance: Alert. Oriented X3. No acute distress. Eyes: Pupils equal, round and reactive to light. ENT: Pharynx normal. Neck: Normal inspection. Neck supple. No lymph nodes noted. No crepitus CVS: Normal heart rate and rhythm. Pulses normal. Normal S1 and S2 Respiratory: No respiratory distress. Breath sounds normal. No Wheezing. No rales Abdomen: Soft and nontender. No rigidity. No distention. Skin: Skin warm and dry. Normal skin color. Normal skin turgor. Extremities: No lower extremity edema. No Lacerations. No Rash Neuro: Oriented X 3. No motor deficit. No sensory deficit. Moving all extremities. No slurred speech. CN 2 through 12 grossly intact Psych: calm, cooperative, normal affect Course Course Course Narrative: - patient admits that he is noncompliant with medications, ran out of meds - patient also admits that he uses alcohol every day, requesting information for a detox program - My interpretation of labs: At baseline hematology, electrolytes within normal limits, glucose 492, elevated AST ALT, nor - patient receiving IV fluids and 10 units of insulin for hyperglycemia. 40 mg of lisinopril for hypertension. Medications Administered Discontinued Medications Generic Name Dose Route Start Last Admin Trade Name Freq PRN Reason Stop Dose Admin Lisinopril 40 mg 06/21/24 00:40 06/21/24 00:55 Lisinopril 40 Mg Tablet PO 06/21/24 00:41 40 mg ONCE ONE Administration Protocol Medical Decision Making Medical Decision Making [facility] Narrative: My interpretation of labs: hematology at baseline, chemistry within normal limits, glucose 492. urine toxicology negative, EtOH 251 - after 1 L of normal saline and 10 Units of insulin, patient remains asymptomatic, glucose 420 - care team consult pending for detox for alcohol dependence - patient has been having insurance trouble and can not afford going to a PCP. Patient's last set of medications were sent to the pharmacy. Patient's insulin will be decreasing dose. Patient has not been taking them due to fear of hypoglycemia which has happened before. Differential Diagnosis Differential Diagnoses: The differential diagnosis associated with the presentation includes ( Medication noncompliance, hypertension, hyperglycemia) Admission/Observation Consideration of admission/observation: Escalation of care including admission/observation considered ( given patient's labs and inability to get medications, observation considered) Lab Data [facility] Lab Attestation statement: I reviewed the patient's lab results. 06/21/24 00:35 06/21/24 00:35 Labs: Lab Results 06/21/24 06/21/24 Range/Units 00:35 00:59 WBC 5.7 (4.8-10.8) X10*3/uL RBC 5.57 (4.60-5.80) X10*6/uL Hgb 14.5 (14.0-18.0) g/dl Hct 40.9 L (42.0-52.0) % MCV 73.4 L (80.0-98.0) fL MCH 26.0 L (27.0-33.0) pg MCHC 35.5 (31.0-36.0) g/dl RDW 13.9 (11.0-16.0) % Plt Count 218 (160-400) X10*3/uL MPV 8.7 L (9.4-12.4) fL Immature Gran % (Auto) 0.2 (0.0-0.4) % Neut % (Auto) 50.2 (45-73) % Lymph % (Auto) 40.4 H (20-40) % Mccormick % (Auto) 6.2 (2-11) % Eos % (Auto) 2.3 (0-4) % Baso % (Auto) 0.7 (0-2) % Lymph # (Auto) 2.3 (1.2-4.9) X10*3/uL Mccormick # (Auto) 0.4 (0.1-1.2) X10*3/uL Eos # (Auto) 0.1 (0.0-0.4) X10*3/uL Baso # (Auto) 0.0 (0.0-0.2) X10*3/uL Abs Immat Gran (auto) 0.01 (0.00-0.03) X10*3/uL Absolute Neuts (auto) 2.9 (2.0-8.3) x10*3/uL Absolute Nucleated RBC 0.000 (0.0-0.012) X10*3/uL Nucleated RBC % (auto) 0.0 (0.0-0.2) /100WBC Sodium 136 (135-145) mmol/L Potassium 4.2 (3.3-5.1) mmol/L Chloride 97 (96-108) mmol/L Carbon Dioxide 26 (22-29) mmol/L Anion Gap 17 (12-20) BUN 24 H (9-16) mg/dL Creatinine 1.23 (0.5-1.4) mg/dL Estim Creat Clear Calc 70.1 Estimated GFR > 60 Random Glucose 492 H* (60-115) mg/dL Calcium 9.0 (8.4-10.2) mg/dL Total Bilirubin 0.3 (0.0-1.0) mg/dL AST 72 H (5-37) U/L ALT 54 H (0-40) U/L Alkaline Phosphatase 85 (39-117) U/L Troponin I High Sens 15.9 (<3.5-35.0) ng/L Total Protein 7.8 (6.5-8.0) g/dL Albumin 4.3 (3.5-5.0) g/dL Urine Opiates Screen Not Detected (Not Detect) Ur Buprenorphine Scrn Not Detected (Not Detect) ng/mL Ur Oxycodone Screen Not Detected (Not Detect) ng/mL Urine Methadone Screen Not Detected (Not Detect) ng/mL Urine Fentanyl Screen Not Detected (Not Detect) Ur Barbiturates Screen Not Detected (Not Detect) Ur Phencyclidine Scrn Not Detected (Not Detect) Ur Amphetamines Screen Not Detected (Not Detect) U Benzodiazepines Scrn Not Detected (Not Detect) Urine Cocaine Screen Not Detected (Not Detect) U Marijuana (THC) Screen Not Detected (Not Detect) Ethyl Alcohol 251 mg/dL Discharge Plan Discharge Clinical Impression: Acute hyperglycemia, Hypertension, Alcohol intoxication, Anxiety Patient Disposition: Still a Patient Instructions: Heart Healthy Diet (ED), Abuse of Alcohol (ED), Hypertension (ED), Anxiety (ED), Diabetic Hyperglycemia (ED) Additional Instructions: Please follow-up with your primary care physician tomorrow. If you have any worsening or new symptoms, please return to the emergency room or call 911 Prescriptions: New lisinopril 40 mg tablet 40 mg PO DAILY Qty: 30 2RF sertraline 100 mg tablet 100 mg PO DAILY Qty: 30 2RF thiamine HCl (vitamin B1) 100 mg tablet 100 mg PO BID Qty: 60 2RF metformin 1,000 mg tablet 1,000 mg PO BID Qty: 60 2RF aspirin 81 mg tablet,delayed release (DR/EC) 81 mg PO DAILY Qty: 30 2RF rosuvastatin 40 mg tablet 40 mg PO DAILY Qty: 30 2RF insulin glargine [Lantus Solostar U-100 Insulin] 100 unit/mL (3 mL) insulin pen 10 unit subcut QPM Qty: 15 2RF insulin lispro [Admelog SoloStar U-100 Insulin] 100 unit/mL insulin pen 5 unit subcut TID Qty: 15 2RF No Action Glucagon Emergency Kit (human) 1 mg recon soln 1 mg subcut Q20M PRN (Reason: hypoglycemia) Qty: 1 0RF Rx Instructions: until target blood sugar attained lisinopril 20 mg tablet 20 mg PO DAILY sertraline 100 mg tablet 100 mg PO DAILY thiamine HCl (vitamin B1) 100 mg tablet 100 mg PO DAILY metformin 1,000 mg tablet 1,000 mg PO BID aspirin 81 mg tablet,chewable 1 tab PO DAILY rosuvastatin 40 mg tablet 40 mg PO BEDTIME insulin glargine [Lantus Solostar U-100 Insulin] 100 unit/mL (3 mL) insulin pen 15 unit subcut BEDTIME Print Language: Nigerien
[2024-06-21] MEDS: lisinopriL 40 MG TABLET PO (00:55)
[2024-06-21 01:01] LABS: Alanine Aminotransferase 54 U/L (0-40); Albumin Level 4.3 g/dL (3.5-5.0); Alkaline Phosphatase 85 U/L (39-117); Anion Gap 17 (12-20); Aspartate Amino Transferase 72 U/L (5-37); Bilirubin Total 0.3 mg/dL (0.0-1.0); Blood Urea Nitrogen 24 mg/dL (9-16); Carbon Dioxide 26 mmol/L (22-29); Chloride 97 mmol/L (96-108); Creatinine Clr Calc Pharmacy 70.1; Estimated Glomerular Filt Rate > 60; Ethanol 251 mg/dL; Potassium 4.2 mmol/L (3.3-5.1); Sodium 136 mmol/L (135-145); Total Protein 7.8 g/dL (6.5-8.0)
[2024-06-21 01:03] LABS: Troponin-I High Sensitivity 15.9 ng/L (<3.5-35.0)
[2024-06-21 01:16] LABS: Amphetamine Screen Urine Not Detected (Not Detect); Barbiturates, Urine Not Detected (Not Detect); Benzodiazepines Screen Urine Not Detected (Not Detect); Buprenorphine Scr Not Detected (Not Detect); Cannabinoid Screen Urine Not Detected (Not Detect); Cocaine Screen Urine Not Detected (Not Detect); Fentanyl, urine Not Detected (Not Detect); Methadone Screen, Urine Not Detected (Not Detect); Opiate Screen Urine Not Detected (Not Detect); Oxycodone Screen Urine Not Detected (Not Detect); Phencyclidine Screen Urine Not Detected (Not Detect)
[2024-06-21 02:13] LABS: Glucose, Whole Blood 420 mg/dL (60-115)
[2024-06-21] MEDS: 0.9 % Sodium Chloride 1,000 ML 999 ML IVCONT ×2 (02:51→02:57)
[2024-06-21] MEDS: Insulin Regular, Human 100 UNIT/ML 10 ML VIAL 10 UNIT IVPUSH ×2 (02:52→02:54)
[2024-06-21 03:36] LABS: Glucose, Whole Blood 198 mg/dL (60-115)
[2024-06-21 08:21] LABS: Glucose Random 492 mg/dL (60-115)
[2024-06-21] MEDS: amLODIPine Besylate 5 MG TABLET PO ×2 (12:35→14:20)
[2024-06-21] MEDS: LORazepam 1 MG TABLET 2 MG PO (12:35)
--- NOTE | 2024-06-21 15:59 | PC.NURSE ---
md aware of discharge vitals
== END 2024-06-21 15:58 | disposition home or self-care (01) ==
PROVIDERS: Emergency Medicine; Emergency Provider Emergency Medicine
DX: E11.65 Type 2 diabetes mellitus with hyperglycemia (principal); F10.129 Alcohol abuse with intoxication, unspecified; I10 Essential (primary) hypertension; R42 Dizziness and giddiness; F41.1 Generalized anxiety disorder; F43.0 Acute stress reaction; Y90.8 Blood alcohol level of 240 mg/100 ml or more; F33.1 Major depressive disorder, recurrent, moderate; Z79.4 Long term (current) use of insulin; Z79.899 Other long term (current) drug therapy; Z91.148 Patient's other noncompliance with medication regimen for other reason
CPT/HCPCS: 36415; 80053; 80307; 82947; 84484; 85025; 93005; 96361; 96374; 99284; 99285

== ENCOUNTER 2025-01-15 17:51 | Emergency (ER) | payer OTHER, SELFPAY ==
--- NOTE | ~2025-01-15 | XR_ITS ---
CLINICAL HISTORY: cough 1 view chest x-ray Comparison: None Findings: No consolidation or effusion. Heart size is normal. No acute fracture. IMPRESSION: 1. No acute findings. This document has been electronically signed by: Christopher Aguila MD on 01/16/2025 00:47:29
--- NOTE | ~2025-01-15 | CT_ITS ---
CLINICAL HISTORY: headache CT head without contrast Comparison: 05/01/24 Findings: No intra-axial mass, midline shift, hydrocephalus, or acute hemorrhage. No significant atrophy-like change or white matter disease. Near-complete opacification of the ethmoid air cells and mucoperiosteal thickening of the maxillary sinuses and sphenoid sinus. The orbits are unremarkable. No skull fracture. IMPRESSION: No acute intracranial process. Significant paranasal sinus disease. This document has been electronically signed by: Yogesh Rodrigez MD on 01/15/2025 20:03:10
[2025-01-15 17:59] VITALS: PULSE 91; RESP 19; TEMP 36.6; O2SAT 98; BMI 28.0
--- NOTE | 2025-01-15 18:02 | ECG_ITS ---
Test Reason : siezure Blood Pressure : */* mmHG Vent. Rate : 84 BPM Atrial Rate : 84 BPM P-R Int : 184 ms QRS Dur : 90 ms QT Int : 340 ms P-R-T Axes : 42 23 14 degrees QTcB Int : 401 ms Normal sinus rhythm Normal ECG When compared with ECG of 21-Jun-2024 00:20, T wave amplitude has decreased in Anterior leads Referred By: Renetta Yee Electronically Signed By: ORTIZ LOBO MD
[2025-01-15 18:28] LABS: MANUAL DIFF FLAG NO
[2025-01-15 18:29] LABS: Basophils Percent Auto 0.4 % (0-2); Eosinophils Absolute Auto 0.3 X10*3/uL (0.0-0.4); Eosinophils Percent Auto 4.6 % (0-4); Hematocrit 38.8 % (42.0-52.0); Hemoglobin 13.5 g/dl (14.0-18.0); Imm Gran Pct Auto 1.3 % (0.0-0.4); Lymphocytes Absolute Auto 3.3 X10*3/uL (1.2-4.9); Lymphocytes Percent Auto 44.5 % (20-40); Mean Corpuscular HGB Conc 34.8 g/dl (31.0-36.0); Mean Corpuscular Hemoglobin 24.4 pg (27.0-33.0); Mean Corpuscular Volume 70.2 fL (80.0-98.0); Mean Platelet Volume 9.7 fL (9.4-12.4); Monocytes Absolute Auto 0.3 X10*3/uL (0.1-1.2); Neutrophils Absolute Auto 3.4 x10*3/uL (2.0-8.3); Neutrophils Percent Auto 45.2 % (45-73); Platelet Count 221 X10*3/uL (160-400); Red Blood Count 5.53 X10*6/uL (4.60-5.80); Red Cell Distribution Width 14.8 % (11.0-16.0); White Blood Count 7.4 X10*3/uL (4.8-10.8)
[2025-01-15 18:43] LABS: Alanine Aminotransferase 42 U/L (0-40); Albumin Level 4.4 g/dL (3.5-5.0); Alkaline Phosphatase 67 U/L (39-117); Anion Gap 12 (12-20); Aspartate Amino Transferase 36 U/L (5-37); Bilirubin Total 0.2 mg/dL (0.0-1.0); Blood Urea Nitrogen 15 mg/dL (9-16); Calcium 9.1 mg/dL (8.4-10.2); Carbon Dioxide 28 mmol/L (22-29); Chloride 108 mmol/L (96-108); Estimated Glomerular Filt Rate > 60; Glucose Random 343 mg/dL (60-115); Lipase 25 U/L (8-78); Magnesium 1.9 mg/dL (1.6-2.6); Potassium 3.9 mmol/L (3.3-5.1); Sodium 144 mmol/L (135-145)
[2025-01-15 18:47] VITALS: BP 134/86; PULSE 91
[2025-01-15 18:47] LABS: Lactic Acid 2.4 mmol/L (0.5-2.0)
--- NOTE | 2025-01-15 18:52 | PC.NURSE ---
Patient away for imaging. Awaiting results.
--- OUTSIDE RECORDS SUMMARY | 2025-01-15 19:03 | XMS_ITS | Encounter Summary ---
Author Organization [employer] Address [address] [place] [address] Care Team Providers Care Magneto Electrician Name Role Phone Shiela Tomlinson MD Primary Care Provide r Encounter Details Date Type Department Care Team (Latest Contact Info) Description 07/11/2019 Abstract [facility]VERSION[facility] Dental, Provider, DDS Social History Tobacco Use Types Packs/Day Years Used Date Smoking Tobacco: Never Assessed Sex and Gender Information Value Date Recorded Sex Assigned at Male 08/03/2022 10:26 AM EDT Legal Sex Male 10:26 AM EDT Gender Identity Male 12/04/2024 12:21 PM EST Sexual Orientation Straight 12/04/2024 12 :21 PM EST documented as of this encounter Plan of Treatment Not on file documented as of this encounter Visit Diagnoses Not on filedocumented in this encounter Care Teams Magneto Electrician Relationship Specialty Start Date End Date Shiela Tomlinson MD [address] [place] [id number] PCP - General Family Medicine 06/15/18 09/01/23 documented as of this encounter
--- OUTSIDE RECORDS SUMMARY | 2025-01-15 19:03 | XMS_ITS | Clinical Summary ---
Author Organization [facility] Address [address] [place] [address] Care Team Providers Care Inspector Receiving Name Role Phone Veto Parker MD Primary Care Provider [phone] Source Comments PLEASE NOTE, if this patient is a minor, it may be UNLAWFUL to discuss sensitive information that is contained in these records (such as FAMILY PLANNING, MENTAL HEALTH or SUBSTANCE ABUSE) with the minor patient's parent or other person without the patient's specific authorization.[facility] Allergies Active Allergy Reactions Criticality Noted Date Comments Penicillin Rash 01/03/2016 Medications No known medications Active Problems No known active problems Immunizations Immunization Administration Dates Next Due Hep B, Adult/Adol (ENERGIX/RECOMBIVAX) 6 MMR (MMR II/Priorix) 01/03/2016 PPD 01/03/2016 TDAP 01/03/2016 Family History Medical History Relation Name Comments Diabetes Mother Hypertension Mother Diabetes Sister Relation Name Status Comments Brother Alive Father Mother Alive Sister Alive Social History Tobacco Use Types Packs/Day Years Used Date Smoking Tobacco: Former Alcohol Use Standard Drinks/Week Comments Yes 0 (1 standard drink = 0.6 oz pur e alcohol) Sex and Gender Information Value Date Recorded Sex Assigned at Not on file Legal Sex Male 8:06 AM PST Gender Identity Not on file Sexual Orientation Not on file Last Filed Vital Signs Vital Sign Reading Time Taken Comments Blood Pressure 134/74 01/03/2016 10:04 AM EDT Pulse 86 01/03/2016 10:04 AM EDT Temperature 36.7 ??C (98 ??F) 01/03/2016 10:04 AM EDT Respiratory Rate 14 01/03/2016 10:04 AM EDT Oxygen Saturation - - Inhaled Oxygen Concentration - - Weight 87.1 kg (192 lb) 01/03/2016 10:04 AM EDT Height 170.2 cm (5' 7 ) 01/03/2016 10:04 AM EDT Body Mass Index 30.07 01/03/2016 10:04 AM EDT Plan of Treatment Not on file Insurance [place] Care Teams Inspector Receiving Relationship Specialty Start Date End Date Veto Parker MD [address] [place] [address] PCP - General Internal Medicine 01/03/16
--- OUTSIDE RECORDS SUMMARY | 2025-01-15 19:03 | XMS_ITS | Clinical Summary ---
Author Organization [employer] Address [address] [facility] [address] [place] [address] Care Team Providers Care Steel Layout Worker Name Role Phone Unavailable Primary Care Provider Unavailabl e Encounters Date Type Department Care Team Description 01/08/2025 Telephone [facility] MEDICINE [address] [place] [address] Amanda Pastor NP New Patient appt. 12/15/2024 Population Health Risk Score [facility] ([facility] Department [address] [id number] Provider, Population Health Generic 12/04/2024 Telephone [facility] MEDICINE [address] [place] [address] Amanda Pastor NP NP 11/27/2024 Telephone [facility] [address] [place] [address] Jazmin Edmond MD Appointment Request from Last 3 Months Social History Tobacco Use Types Packs/Day Years Used Date Smoking Tobacco: Never Assessed Sex and Gender Information Value Date Recorded Sex Assigned at Male 08/03/2022 10:26 AM EDT Legal Sex Male 10:26 AM EDT Gender Identity Male 12/04/2024 12:21 PM EST Sexual Orientation Straight 12/04/2024 12 :21 PM EST Plan of Treatment Health Maintenance Due Date Last Done Comments CT Colonography 1971 Colonoscopy 1971 Colorectal Cancer Screening 1971 Depression Screening 1971 FIT DNA/Cologuard 1971 FIT 1971 FOBT 1971 HIV Screening 1971 Lipid Panel 1971 SDOH Screening 1971 Sigmoidoscopy 1971 Alcohol/Substance Use Screening 1983 Tobacco Screening 1983 Hepatitis C Screening 1989 Hepatitis B Vaccines (2 of 3 - 19+ 3-dose series) 01/31/2016 01/03/2016 Pneumococcal Vaccine: 50+ Years (2 of 2 - PCV) 10/09/2017 10/09/2016, 04/26/2014 Zoster Vaccines (1 of 2) 2021 COVID-19 Vaccine (4 - 2023-2 5 season) 2024 08/05/2022, 02/17/2022, 02/19/2021 Influenza Vaccine (#1) 2024 , 10/09/2016, 07/09/2015 DTaP/Tdap/Td Vaccines (3 - T d or Tdap) 01/02/2026 01/03/2016, 07/09/2015 RSV Patients and Patients Aged 60 years or older (1 - 1-dose 75+ series) 2046 HIB Vaccines Aged Out No longer eligi ble based on patient's age to complete this topic HPV Vaccines Aged Out No longer eligi ble based on patient's age to complete this topic Hepatitis A Vaccines Aged Out No long er eligible based on patient's age to complete this topic IPV Vaccines Aged Out No longer eligi ble based on patient's age to complete this topic Meningococcal Vaccine Aged Out No tena bertin eligible based on patient's age to complete this topic RSV under 20 months Aged Out No longe r eligible based on patient's age to complete this topic Rotavirus Vaccines Aged Out No longer eligible based on patient's age to complete this topic Insurance [facility]
--- OUTSIDE RECORDS SUMMARY | 2025-01-15 19:03 | XMS_ITS | Encounter Summary ---
Author Organization [employer] Address [address] [facility] [address] [place] [address] Care Team Providers Care Car Parker Name Role Phone Unavailable Primary Care Provider Unavailabl e Reason for Visit * Reason Onset Date Comments New Patient appt. 01/08/2025 Encounter Details Date Type Department Care Team (Late st Contact Info) Description 01/08/2025 Telephone [facility] MEDICINE [address] [place] [address] Amanda Pastor NP [address] [place] [address] New Patient appt. Social History Tobacco Use Types Packs/Day Years Used Date Smoking Tobacco: Never Assessed Sex and Gender Information Value Date Recorded Sex Assigned at Male 08/03/2022 10:26 AM EDT Legal Sex Male 10:26 AM EDT Gender Identity Male 12/04/2024 12:21 PM EST Sexual Orientation Straight 12/04/2024 12 :21 PM EST documented as of this encounter Miscellaneous Notes * Telephone Encounter - Eli Casillas - 01/10/2025 2:26 PM EDT Zero availability. Patient added to [facility] New Patient wait list as ot 01/10/25. 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 documented in this encounter Plan of Treatment Not on file documented as of this encounter Visit Diagnoses Not on filedocumented in this encounter
--- NOTE | 2025-01-15 19:33 | ED_ITS ---
HPI - General Adult General Chief complaint: General Medical Stated complaint: elevated poc Time Seen by Provider: 01/15/25 19:30 Source: patient Limitations: no limitations History of Present Illness ED Provider: Suzie Bello PA-C HPI narrative: 54-year-old male with a history of alcohol abuse disorder, hypertension, diabetes, hyperlipidemia, who presents after suspect seizure activity. Patient states he was in bed, and began to ?shake?. Patient was aware of what was happening, no injury sustained, he did not become incontinent of urine. The patient admits to drinking alcohol today. Related Data Home Medications ?Medication ?Instructions ?Recorded ?Confirmed aspirin 81 mg chewable tablet 1 tab PO DAILY 03/04/24 03/04/24 insulin glargine 100 unit/mL (3 15 unit subcut BEDTIME 03/04/24 03/04/24 mL) subcutaneous pen (Lantus Solostar U-100 Insulin) lisinopril 20 mg tablet 20 mg PO DAILY 03/04/24 03/04/24 metformin 1,000 mg tablet 1,000 mg PO BID 03/04/24 03/04/24 rosuvastatin 40 mg tablet 40 mg PO BEDTIME 03/04/24 03/04/24 sertraline 100 mg tablet 100 mg PO DAILY 03/04/24 03/04/24 thiamine HCl (vitamin B1) 100 mg 100 mg PO DAILY 03/04/24 03/04/24 tablet Previous Rx's ?Medication ?Instructions ?Recorded glucagon 1 mg solution for 1 mg subcut Q20M PRN hypoglycemia 11/14/22 injection (Glucagon Emergency Kit) #1 ea amlodipine 5 mg tablet 5 mg PO DAILY #30 tabs 06/21/24 aspirin 81 mg tablet,delayed 81 mg PO DAILY #30 tabs 06/21/24 release insulin glargine 100 unit/mL (3 10 unit (0.1 mL) subcut QPM #15 mL 06/21/24 mL) subcutaneous pen (Lantus Solostar U-100 Insulin) insulin lispro 100 unit/mL 5 unit (0.05 mL) subcut TID #15 mL 06/21/24 subcutaneous pen (Admelog SoloStar U-100 Insulin lispro) lisinopril 40 mg tablet 40 mg PO DAILY #30 tabs 06/21/24 metformin 1,000 mg tablet 1,000 mg PO BID #60 tabs 06/21/24 rosuvastatin 40 mg tablet 40 mg PO DAILY #30 tabs 06/21/24 sertraline 100 mg tablet 100 mg PO DAILY #30 tabs 06/21/24 thiamine HCl (vitamin B1) 100 mg 100 mg PO BID #60 tabs 06/21/24 tablet Allergies Allergy/AdvReac Type Severity Reaction Status Date / Time Penicillins [PENICILLINS] Allergy Mild RASH Verified 01/15/25 18:03 sildenafil [Viagra] AdvReac Unknown flush, Verified 01/15/25 18:03 headaches PENICILLIN Allergy Unknown rash Uncoded 01/15/25 18:03 PMFSH Past Medical History Medical History Type 2 diabetes mellitus Social History Social History Alcohol intake: current Alcohol intake frequency: 3 or more drinks per day Alcohol type: hard liquor Use of substances other than those prescribed or required for medical reasons: No Substance Use Type: Crack/Cocaine Advance Directives: No Advance Directives Information Provided: No Do you have a plan to hurt others: No Plan Physical Exam ED Vital Signs: Vital Signs - 24 hr 01/15/25 17:59 01/15/25 18:47 01/15/25 20:05 Temperature 98 F 98.4 F Pulse Rate 91 91 82 Respiratory Rate 19 16 Blood Pressure 134/86 126/82 Pulse Oximetry 98 97 Oxygen Delivery Method Room Air 01/15/25 22:24 01/16/25 00:30 Temperature 98.3 F 97.1 F Pulse Rate 73 73 Respiratory Rate 16 16 Blood Pressure 132/79 126/79 Pulse Oximetry 95 96 Oxygen Delivery Method Room Air Room Air BMI result Body Mass Index 28.0 Course Reevaluation(s) Reevaluation #1: A lactic acid was ordered from triage to confirm seizure activity. I would not have ordered this lab, I am now forced to initiate the sepsis pathway. The patient was not septic, he has no infectious signs or symptoms he is afebrile. I believe his elevated lactic acid is due to his inability to efficiently clear the lactate due to his alcohol use and likely underlying liver dysfunction. He is out of the window per the protocol at the time that I am seeing him and assessing him. I am adding blood cultures, we will order ceftriaxone and fluid. Adding a urinalysis and a chest x-ray. I trend back his lactic acid to April of last year, his lactic acidosis is chronic Time: 19:43 Medications Administered Discontinued Medications Generic Name Dose Route Start Last Admin Trade Name Krysta PRN Reason Stop Dose Admin Ceftriaxone Sodium 2 gm 01/15/25 21:36 01/15/25 22:11 Ceftriaxone Sodium 2 Gm Vial IVPUSH 01/15/25 21:37 2 gm ONCE ONE Administration Sodium Chloride 1,000 mls @ 999 mls/hr 01/15/25 19:45 01/15/25 21:20 Ns IV 01/15/25 20:45 Infused .Q1H1M HARMAN Infusion Sodium Chloride 1,000 mls @ 999 mls/hr 01/15/25 21:45 01/15/25 23:15 Ns IV 01/15/25 22:45 Infused .Q1H1M HARMAN Infusion Lorazepam 1 mg 01/15/25 19:33 01/15/25 19:49 Lorazepam 2 Mg/Ml Vial IVPUSH 01/15/25 19:34 1 mg ONCE ONE Administration Medical Decision Making Medical Decision Making MDM Narrative: 54-year-old male with a history of alcohol abuse disorder, hypertension, diabetes, hyperlipidemia, who presents after suspect seizure activity. Patient states he was in bed, and began to ?shake?. Patient was aware of what was happening, no injury sustained, he did not become incontinent of urine. The patient admits to drinking alcohol today. Problem: Alcohol use disorder, type History: Per patient I have considered the following differential diagnoses: Alcohol withdrawal seizure, hypoglycemia, DTs Plan: Screening labs and a CT of the brain ordered from triage, blood sugar appropriate, if anything elevated, but not in DKA, a lactic acid was ordered, as ?proof?, of potential seizure activity. I would not have ordered this lab parameter, the patient's lactate can be elevated in the presence of underlying liver dysfunction from his alcohol abuse. He is not exhibiting signs of sepsis, however now I am forced to go down that road. We will be adding blood cultures, giving fluid and starting ceftriaxone. We will repeat the lactate. Adding on an ethanol as well, I can smell alcohol on his breath and he admits to alcohol consumption earlier today. Hence, alcohol withdrawal seizure least likely. And, he was awake through the entire event. I have independently reviewed the following tests: Labs: No leukocytosis, not anemic, no electrolyte abnormality, ethanol 322, blood sugar 343, no gap, 1st lactic 2.4, 2nd 3.0 I suspect lab draw error, third lactic 2.6, urine not infected CT brain:IMPRESSION: No acute intracranial process. Significant paranasal sinus disease. Chest x-ray:Findings: No consolidation or effusion. Heart size is normal. No acute fracture. IMPRESSION: 1. No acute findings. Lab Data 01/15/25 18:23 01/15/25 18:23 Labs: Lab Results 01/15/25 01/15/25 01/15/25 Range/Units 18:23 21:03 23:25 WBC 7.4 (4.8-10.8) X10*3/uL RBC 5.53 (4.60-5.80) X10*6/uL Hgb 13.5 L (14.0-18.0) g/dl Hct 38.8 L (42.0-52.0) % MCV 70.2 L (80.0-98.0) fL MCH 24.4 L (27.0-33.0) pg MCHC 34.8 (31.0-36.0) g/dl RDW 14.8 (11.0-16.0) % Plt Count 221 (160-400) X10*3/uL MPV 9.7 (9.4-12.4) fL Immature Gran % (Auto) 1.3 H (0.0-0.4) % Neut % (Auto) 45.2 (45-73) % Lymph % (Auto) 44.5 H (20-40) % [place] % (Auto) 4.0 (2-11) % Eos % (Auto) 4.6 H (0-4) % Baso % (Auto) 0.4 (0-2) % Lymph # (Auto) 3.3 (1.2-4.9) X10*3/uL [place] # (Auto) 0.3 (0.1-1.2) X10*3/uL Eos # (Auto) 0.3 (0.0-0.4) X10*3/uL Baso # (Auto) 0.0 (0.0-0.2) X10*3/uL Abs Immat Gran (auto) 0.10 H (0.00-0.03) X10*3/uL Absolute Neuts (auto) 3.4 (2.0-8.3) x10*3/uL Absolute Nucleated RBC 0.000 (0.0-0.012) X10*3/uL Nucleated RBC % (auto) 0.0 (0.0-0.2) /100WBC Sodium 144 (135-145) mmol/L Potassium 3.9 (3.3-5.1) mmol/L Chloride 108 (96-108) mmol/L Carbon Dioxide 28 (22-29) mmol/L Anion Gap 12 (12-20) BUN 15 (9-16) mg/dL Creatinine 1.05 (0.5-1.4) mg/dL Estim Creat Clear Calc 83.0 Estimated GFR > 60 Random Glucose 343 H (60-115) mg/dL Lactic Acid 2.4 H* (0.5-2.0) mmol/L Lactic Acid F/U @ 2Hr 3.0 H* (0.5-2.0) mmol/L Lactic Acid F/U @ 4Hr 2.6 H* (0.5-2.0) mmol/L Calcium 9.1 (8.4-10.2) mg/dL Magnesium 1.9 (1.6-2.6) mg/dL Total Bilirubin 0.2 (0.0-1.0) mg/dL AST 36 (5-37) U/L ALT 42 H (0-40) U/L Alkaline Phosphatase 67 (39-117) U/L Total Protein 7.0 (6.5-8.0) g/dL Albumin 4.4 (3.5-5.0) g/dL Lipase 25 (8-78) U/L Urine Color Urine Appearance Urine pH (5.0-9.0) Ur Specific [place] (1.005-1.025) Urine Protein (Neg-Trace) mg/dL Urine Glucose (UA) (Negative) mg/dL Urine Ketones (Negative) mg/dL Urine Blood (Negative) Urine Nitrite (Negative) Ur Leukocyte Esterase (Negative) Urine RBC (0-2) /HPF Urine WBC (0-5) /HPF Ur Squamous Epith Cells (0-2) /HPF Urine Bacteria (None Seen) Hyaline Casts (0-2) /LPF Ethyl Alcohol 322 H* mg/dL 01/16/25 Range/Units 01:13 WBC (4.8-10.8) X10*3/uL RBC (4.60-5.80) X10*6/uL Hgb (14.0-18.0) g/dl Hct (42.0-52.0) % MCV (80.0-98.0) fL MCH (27.0-33.0) pg MCHC (31.0-36.0) g/dl RDW (11.0-16.0) % Plt Count (160-400) X10*3/uL MPV (9.4-12.4) fL Immature Gran % (Auto) (0.0-0.4) % Neut % (Auto) (45-73) % Lymph % (Auto) (20-40) % [place] % (Auto) (2-11) % Eos % (Auto) (0-4) % Baso % (Auto) (0-2) % Lymph # (Auto) (1.2-4.9) X10*3/uL [place] # (Auto) (0.1-1.2) X10*3/uL Eos # (Auto) (0.0-0.4) X10*3/uL Baso # (Auto) (0.0-0.2) X10*3/uL Abs Immat Gran (auto) (0.00-0.03) X10*3/uL Absolute Neuts (auto) (2.0-8.3) x10*3/uL Absolute Nucleated RBC (0.0-0.012) X10*3/uL Nucleated RBC % (auto) (0.0-0.2) /100WBC Sodium (135-145) mmol/L Potassium (3.3-5.1) mmol/L Chloride (96-108) mmol/L Carbon Dioxide (22-29) mmol/L Anion Gap (12-20) BUN (9-16) mg/dL Creatinine (0.5-1.4) mg/dL Estim Creat Clear Calc Estimated GFR Random Glucose (60-115) mg/dL Lactic Acid (0.5-2.0) mmol/L Lactic Acid F/U @ 2Hr (0.5-2.0) mmol/L Lactic Acid F/U @ 4Hr (0.5-2.0) mmol/L Calcium (8.4-10.2) mg/dL Magnesium (1.6-2.6) mg/dL Total Bilirubin (0.0-1.0) mg/dL AST (5-37) U/L ALT (0-40) U/L Alkaline Phosphatase (39-117) U/L Total Protein (6.5-8.0) g/dL Albumin (3.5-5.0) g/dL Lipase (8-78) U/L Urine Color Yellow Urine Appearance Clear Urine pH 6.0 (5.0-9.0) Ur Specific [place] >= 1.030 H (1.005-1.025) Urine Protein Trace (Neg-Trace) mg/dL Urine Glucose (UA) >=1000 H (Negative) mg/dL Urine Ketones 15 (Negative) mg/dL Urine Blood Negative (Negative) Urine Nitrite Negative (Negative) Ur Leukocyte Esterase Negative (Negative) Urine RBC 0-2 (0-2) /HPF Urine WBC 0-5 (0-5) /HPF Ur Squamous Epith Cells 0-2 (0-2) /HPF Urine Bacteria None Seen (None Seen) Hyaline Casts 0-2 (0-2) /LPF Ethyl Alcohol mg/dL Discharge Plan Discharge Clinical Impression: Alcohol intoxication, Acidosis, lactic Patient Disposition: Home, Self-Care Instructions: Alcohol Intoxication (ED), Alcohol Use Disorder (ED) Additional Instructions: You were noted to be significantly intoxicated, your blood alcohol level was elevated. The CT scan of your brain was normal, you had no additional lab abnormalities. The chest x-ray was clear. I have provided you with resources if you choose to seek help for your alcohol use disorder. Alcohol use disorder You were seen in the Emergency Department today for treatment of alcohol use disorder.? You may have been given medications to help with your withdrawal symptoms.? Please do not drink alcohol with them. This is very dangerous and can cause respiratory depression or other adverse reactions depending on the medication. If you would like to cut down or stop your alcohol use please consider calling our outpatient Addiction Treatment office:? [facility] (M-F [id number]) [address] [place] [address] ? You have also been given a list of treatment providers in the area that can assist as well.? If you experience seizures, vomiting blood, black stools, falls, severe headache, chest pain, fevers, trouble breathing, hallucinations or any other concerns you need to call 911 or seek immediate care. Please stay hydrated. Prescriptions: No Action Glucagon Emergency Kit (human) 1 mg recon soln 1 mg subcut Q20M PRN (Reason: hypoglycemia) Qty: 1 0RF Rx Instructions: until target blood sugar attained lisinopril 20 mg tablet 20 mg PO DAILY sertraline 100 mg tablet 100 mg PO DAILY thiamine HCl (vitamin B1) 100 mg tablet 100 mg PO DAILY metformin 1,000 mg tablet 1,000 mg PO BID aspirin 81 mg tablet,chewable 1 tab PO DAILY rosuvastatin 40 mg tablet 40 mg PO BEDTIME insulin glargine [Lantus Solostar U-100 Insulin] 100 unit/mL (3 mL) insulin pen 15 unit subcut BEDTIME lisinopril 40 mg tablet 40 mg PO DAILY Qty: 30 2RF sertraline 100 mg tablet 100 mg PO DAILY Qty: 30 2RF thiamine HCl (vitamin B1) 100 mg tablet 100 mg PO BID Qty: 60 2RF metformin 1,000 mg tablet 1,000 mg PO BID Qty: 60 2RF aspirin 81 mg tablet,delayed release (DR/EC) 81 mg PO DAILY Qty: 30 2RF rosuvastatin 40 mg tablet 40 mg PO DAILY Qty: 30 2RF insulin glargine [Lantus Solostar U-100 Insulin] 100 unit/mL (3 mL) insulin pen 10 unit subcut QPM Qty: 15 2RF insulin lispro [Admelog SoloStar U-100 Insulin] 100 unit/mL insulin pen 5 unit subcut TID Qty: 15 2RF amlodipine 5 mg tablet 5 mg PO DAILY Qty: 30 0RF Print Language: Libyan
[2025-01-15] MEDS: 0.9 % Sodium Chloride 1,000 ML 999 ML IV ×2 (19:47→22:11)
[2025-01-15] MEDS: LORazepam 2 MG/ML VIAL 1 MG IVPUSH (19:49)
--- NOTE | 2025-01-15 19:56 | PC.NURSE ---
Patient was requesting to leave against medical advice. SUREKHA Perez came to bedside and was able to convince the patient to stay for IV hydration & Ativan administration. 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 Patient agreed to remain for initial treatments, then requesting to leave. Patient speaking in clear/full sentences. Ambulates with steady gait without assistance. Care ongoing by this RN. 18g IV access established to right AC by this RN. Labs drawn and sent for analysis. Awaiting results.
[2025-01-15 19:57] LABS: Ethanol 322 mg/dL
[2025-01-15 20:05] VITALS: BP 126/82; PULSE 82; RESP 16; TEMP 36.9; O2SAT 97
[2025-01-15 20:28] LABS: Reflex Lactate? Lactic Acid Added
[2025-01-15] MEDS: cefTRIAXone sodium 2 GM VIAL IVPUSH (22:11)
--- NOTE | 2025-01-15 22:12 | PC.NURSE ---
Patient medicated per MAR.
[2025-01-15 22:24] VITALS: BP 132/79; PULSE 73; RESP 16; TEMP 36.8; O2SAT 95
[2025-01-15 23:06] LABS: Reflex Lactate? 2 Y
--- NOTE | 2025-01-15 23:16 | PC.NURSE ---
Patient requested diet tyrone blair, provided and tolerated well.
[2025-01-16 00:03] LABS: ~Lactic Acid-LAB USE ONLY 2.6 mmol/L (0.5-2.0)
--- NOTE | 2025-01-16 00:27 | PC.NURSE ---
Patient is resting in stretcher bed, offers no complaints at present, call in patient's reach, plan of care ongoing.
[2025-01-16 00:30] VITALS: BP 126/79; PULSE 73; RESP 16; TEMP 36.2; O2SAT 96
[2025-01-16 01:25] LABS: Appearance Urine Clear; Color Urine Yellow; Glucose Urine UA >=1000 mg/dL (Negative); Leukocyte Esterase Urine Negative (Negative); Nitrite Urine Negative (Negative); Specific Gravity - Urine >= 1.030 (1.005-1.025); UMIC TRIGGER UACC YES; Urine Blood Negative (Negative); Urine Ketones 15 mg/dL (Negative); Urine Protein Trace mg/dL (Neg-Trace)
[2025-01-16 01:30] LABS: Bacteria Urine None Seen (None Seen); Hyaline Casts Urine 0-2 /LPF (0-2); RBC Urine 0-2 /HPF (0-2); Squamous Epithelial Cell Urine 0-2 /HPF (0-2); WBC Urine 0-5 /HPF (0-5)
[2025-01-16 02:45] VITALS: BP 137/78; PULSE 79; RESP 16; TEMP 36.6; O2SAT 98
[2025-01-16 03:05] VITALS: BP 137/78; PULSE 79; RESP 16; TEMP 37.1; O2SAT 98
== END 2025-01-16 03:06 | disposition home or self-care (01) ==
PROVIDERS: Physician Assistant Medical; Emergency Provider Emergency Medicine
DX: F10.129 Alcohol abuse with intoxication, unspecified (principal); R56.9 Unspecified convulsions; E11.9 Type 2 diabetes mellitus without complications; R51.9 Headache, unspecified; Y90.8 Blood alcohol level of 240 mg/100 ml or more; Z51.81 Encounter for therapeutic drug level monitoring; Z79.899 Other long term (current) drug therapy; Z79.4 Long term (current) use of insulin
CPT/HCPCS: 36415; 70450; 71045; 80053; 80307; 81001; 83605; 83690; 83735; 85025; 87040; 93005; 96361; 96374; 96375; 99285; J0696; J2060

== ENCOUNTER → 2025-01-15 18:02 | Outpatient (BNV) | payer OTHER, SELFPAY | PROVIDERS: Emergency Provider Emergency Medicine; Visit Provider Internal Medicine Cardiovascular Disease | DX: R56.9 Unspecified convulsions (principal) | CPT/HCPCS: 93010 ==

== ENCOUNTER → 2025-01-15 18:07 | Outpatient (BNV) | payer OTHER, SELFPAY | PROVIDERS: Emergency Provider Emergency Medicine; Visit Provider Radiology Vascular & Interventional Radiology | DX: J34.89 Other specified disorders of nose and nasal sinuses (principal); R51.9 Headache, unspecified | CPT/HCPCS: 70450 ==

== ENCOUNTER → 2025-01-16 00:04 | Outpatient (BNV) | payer OTHER, SELFPAY | PROVIDERS: Emergency Provider Emergency Medicine; Visit Provider Radiology Diagnostic Radiology | DX: R05.9 Cough, unspecified (principal) | CPT/HCPCS: 71045 ==

== ENCOUNTER 2025-03-27 13:36 | Emergency (ER) | payer OTHER, SELFPAY ==
--- NOTE | ~2025-03-27 | XR_ITS ---
EXAMINATION: XR CHEST CLINICAL INFORMATION: Chest congestion COMPARISON: January 16, 2025 TECHNIQUE: 2 views of the chest were obtained. FINDINGS: Heart size is within normal limits. Hilar structures are unremarkable. Lungs are clear and well expanded. There is no sign of pleural effusion. There are bridging anterior osteophytes in the midthoracic spine. XR/XR chest 2V IMPRESSION: No acute disease. Changes in the thoracic spine consistent with diffuse idiopathic skeletal hyperostosis (DISH) Electronically signed by: Marco A Estes MD 03/27/2025 02:40 PM EDT
[2025-03-27 13:55] VITALS: BP 125/91; PULSE 99; RESP 16; TEMP 36.1; O2SAT 98; BMI 27.6
--- NOTE | 2025-03-27 13:57 | ED.URI ---
HPI - URI/Sore Throat General Chief Complaint: Upper Respiratory Symptoms Stated Complaint: cp,high bp Time Seen by Provider: 03/27/25 20:55 History of Present Illness ED Provider: Rasheed Sexton MD HPI Narrative: This is a 55-year-old male with diabetes hypertension hyperlipidemia and anxiety. He notes over the past 3-4 days which has been notably extremely hot and humid when he is walking outside he feels tightness wrapping around his chest. This resolves upon coming into the home or in an air-conditioned area. He was concerned about this tightness sensation he also had multiple episodes of watery diarrhea over the past 2 days no blood or dark stool no history of GI bleed denies abdominal pain. Currently chest pain-free feels comfortable no cough or hemoptysis recently Related Data Home Medications ?Medication ?Instructions ?Recorded ?Confirmed aspirin 81 mg chewable tablet 1 tab PO DAILY 03/04/24 03/04/24 insulin glargine 100 unit/mL (3 15 unit subcut BEDTIME 03/04/24 03/04/24 mL) subcutaneous pen (Lantus Solostar U-100 Insulin) lisinopril 20 mg tablet 20 mg PO DAILY 03/04/24 03/04/24 metformin 1,000 mg tablet 1,000 mg PO BID 03/04/24 03/04/24 rosuvastatin 40 mg tablet 40 mg PO BEDTIME 03/04/24 03/04/24 sertraline 100 mg tablet 100 mg PO DAILY 03/04/24 03/04/24 thiamine HCl (vitamin B1) 100 mg 100 mg PO DAILY 03/04/24 03/04/24 tablet Previous Rx's ?Medication ?Instructions ?Recorded glucagon 1 mg solution for 1 mg subcut Q20M PRN hypoglycemia 11/14/22 injection (Glucagon Emergency Kit) #1 ea amlodipine 5 mg tablet 5 mg PO DAILY #30 tabs 06/21/24 aspirin 81 mg tablet,delayed 81 mg PO DAILY #30 tabs 06/21/24 release insulin glargine 100 unit/mL (3 10 unit (0.1 mL) subcut QPM #15 mL 06/21/24 mL) subcutaneous pen (Lantus Solostar U-100 Insulin) insulin lispro 100 unit/mL 5 unit (0.05 mL) subcut TID #15 mL 06/21/24 subcutaneous pen (Admelog SoloStar U-100 Insulin lispro) lisinopril 40 mg tablet 40 mg PO DAILY #30 tabs 06/21/24 metformin 1,000 mg tablet 1,000 mg PO BID #60 tabs 06/21/24 rosuvastatin 40 mg tablet 40 mg PO DAILY #30 tabs 06/21/24 sertraline 100 mg tablet 100 mg PO DAILY #30 tabs 06/21/24 thiamine HCl (vitamin B1) 100 mg 100 mg PO BID #60 tabs 06/21/24 tablet Allergies Allergy/AdvReac Type Severity Reaction Status Date / Time Penicillins (PENICILLINS) Allergy Mild RASH Verified 03/27/25 14:02 sildenafil (Viagra) AdvReac Unknown flush, Verified 03/27/25 14:02 headaches PENICILLIN Allergy Unknown rash Uncoded 01/15/25 18:03 PMFSH Past Medical History Medical History Type 2 diabetes mellitus Social History Social History Alcohol intake: current Alcohol intake frequency: 3 or more drinks per day Alcohol type: hard liquor Smoked in Last 30 Days: No Use of substances other than those prescribed or required for medical reasons: No Substance Use Type: Crack/Cocaine Advance Directives: No Advance Directives Information Provided: No Do you have a plan to hurt others: No Plan Physical Exam Vital Signs: Vital Signs: Last Vital Signs Temp 98.2 F 03/27/25 22:13 Pulse 77 03/27/25 22:13 Resp 16 03/27/25 22:13 BP 169/72 H 03/27/25 22:13 Pulse Ox 95 03/27/25 22:13 O2 Del Method Room Air 03/27/25 22:13 BMI result Body Mass Index 27.6 Const: Other: EXAM: Gen: Alert, awake, well appearing, well hydrated. Head: Atraumatic Eyes: Anicteric, Normal conjunctiva. ENT: Moist mucosa, no pallor. ? Neck: Supple. Skin: ?No observable rash or bruising on exposed or examined skin Respiratory: Breathing comfortably, No distress.Clear to auscultation bilaterally, symmetric chest expansion, No wheeze, rales, ronchi. Cardiovascular: Regular rate and rhythm. No murmurs or rub. Well perfused periphery, warm extremities. No edema. ? Abdominal: No FOCAL TENDERNESS. Soft, no objective distension. No palpable masses or obvious organomegaly. ?No guarding, no rebound tenderness or other peritoneal findings. : No flank tenderness. Neuro: Alert. Gross movement of all extremities intact. ? Psych: Calm. Cooperative. MSK: No grossly visible deformity. Vital signs: See flowsheet Course Course Course Narrative: RME: Misty Ojeda PA-C 03/27/2025:200 pm: will defer full ROS and PE to treating provider; consumer services advisor used cough congestion and diarrhea with nausea x 2 days. No fevers, chills, headaches, nasal congestion, sore throat, sob, angina, abd pain, or vomiting. Decreased appetite, has not taken anything for his sxs. Hx of DM no asthma/copd or tobacco use Does not look ill or toxic, clear lungs and throat, denies pleuritic cp, no fam hx of cardiac issues Ordered: basic labs (hx of DM) and CXR with EKG likely viral illness Medical Decision Making Medical Decision Making MDM Narrative: [age] male with atypical chest discomfort symptoms mostly went outside in the hot humid air. Clear lungs looks well pain-free reassuring ECG. I do not think this patient needs a troponin or HI exclusion as this discomfort is very atypical and not suggestive of ACS. Clear lung brito on chest x-ray incidental finding which I have printed up for him on the chest x-ray showing some spinal bony abnormalities that can be followed up by PCP diarrhea likely gastroenteritis no dehydration clinically or electrolyte derangements that are actionable Lab Data 03/27/25 14:18 03/27/25 14:18 Labs: Lab Results 03/27/25 Range/Units 14:18 WBC 4.7 L (4.8-10.8) X10*3/uL RBC 5.82 H (4.60-5.80) X10*6/uL Hgb 15.5 (14.0-18.0) g/dl Hct 42.9 (42.0-52.0) % MCV 73.7 L (80.0-98.0) fL MCH 26.6 L (27.0-33.0) pg MCHC 36.1 H (31.0-36.0) g/dl RDW 15.7 (11.0-16.0) % Plt Count 119 L D (160-400) X10*3/uL MPV 9.1 L (9.4-12.4) fL Immature Gran % (Auto) 0.2 (0.0-0.4) % Neut % (Auto) 75.1 H (45-73) % Lymph % (Auto) 16.5 L (20-40) % [place] % (Auto) 5.1 (2-11) % Eos % (Auto) 2.7 (0-4) % Baso % (Auto) 0.4 (0-2) % Lymph # (Auto) 0.8 L (1.2-4.9) X10*3/uL [place] # (Auto) 0.2 (0.1-1.2) X10*3/uL Eos # (Auto) 0.1 (0.0-0.4) X10*3/uL Baso # (Auto) 0.0 (0.0-0.2) X10*3/uL Abs Immat Gran (auto) 0.01 (0.00-0.03) X10*3/uL Absolute Neuts (auto) 3.6 (2.0-8.3) x10*3/uL Absolute Nucleated RBC 0.000 (0.0-0.012) X10*3/uL Nucleated RBC % (auto) 0.0 (0.0-0.2) /100WBC Sodium 133 L (135-145) mmol/L Potassium 4.1 (3.3-5.1) mmol/L Chloride 98 (96-108) mmol/L Carbon Dioxide 23 (22-29) mmol/L Anion Gap 16 (12-20) BUN 17 H (9-16) mg/dL Creatinine 0.90 (0.5-1.4) mg/dL Estim Creat Clear Calc 91.9 Estimated GFR > 60 Random Glucose 312 H (60-115) mg/dL Calcium 9.8 D (8.4-10.2) mg/dL Influenza Type A (PCR) NEGATIVE (Negative) Influenza Type B (PCR) NEGATIVE (Negative) RSV RNA Qual (PCR) NEGATIVE (Negative) SARS-CoV-2 RNA (RT-PCR) NEGATIVE (Negative) Discharge Plan Discharge Clinical Impression: Diarrhea Patient Disposition: Home, Self-Care Instructions: Acute Diarrhea (ED) Additional Instructions: DISCHARGE DIAGNOSES: Diarrhea could be viral or food-borne illness. Does not appear severe or causing dehydration HISTORY OF PRESENTATION: ?Diarrhea and atypical chest tightness when in the hot humid air over the past 3 days EMERGENCY DEPARTMENT COURSE,TESTS, TREATMENTS: While in the ED today you had reassuring lab work with chemistry electrolytes blood counts. DISCHARGE MEDICATIONS: ?[We have made no changes to your regular medication regimen] FOLLOW-UP: ?Call your primary or general physician soon as possible to discuss your symptoms, your ED visit and to discuss follow up plans Call your primary doctor for follow up if you continue to have atypical symptoms of tightness or wrapping or in your chest INSTRUCTIONS ?& RETURN PRECAUTIONS: If any symptoms change first call your primary physician, if it is after-hours your primary doctors office should have a provider network security consultant you can speak with. If the symptoms are severe or very concerning to you then call 911 or return to the ED. Drink plenty of fluids Rasheed Sexton MD Emergency Physician [facility] Importantly you had a nonspecific skeletal issue on your x-ray but you need to follow up Prescriptions: No Action Glucagon Emergency Kit (human) 1 mg recon soln 1 mg subcut Q20M PRN (Reason: hypoglycemia) Qty: 1 0RF Rx Instructions: until target blood sugar attained lisinopril 20 mg tablet 20 mg PO DAILY sertraline 100 mg tablet 100 mg PO DAILY thiamine HCl (vitamin B1) 100 mg tablet 100 mg PO DAILY metformin 1,000 mg tablet 1,000 mg PO BID aspirin 81 mg tablet,chewable 1 tab PO DAILY rosuvastatin 40 mg tablet 40 mg PO BEDTIME insulin glargine [Lantus Solostar U-100 Insulin] 100 unit/mL (3 mL) insulin pen 15 unit subcut BEDTIME lisinopril 40 mg tablet 40 mg PO DAILY Qty: 30 2RF sertraline 100 mg tablet 100 mg PO DAILY Qty: 30 2RF thiamine HCl (vitamin B1) 100 mg tablet 100 mg PO BID Qty: 60 2RF metformin 1,000 mg tablet 1,000 mg PO BID Qty: 60 2RF aspirin 81 mg tablet,delayed release (DR/EC) 81 mg PO DAILY Qty: 30 2RF rosuvastatin 40 mg tablet 40 mg PO DAILY Qty: 30 2RF insulin glargine [Lantus Solostar U-100 Insulin] 100 unit/mL (3 mL) insulin pen 10 unit subcut QPM Qty: 15 2RF insulin lispro [Admelog SoloStar U-100 Insulin] 100 unit/mL insulin pen 5 unit subcut TID Qty: 15 2RF amlodipine 5 mg tablet 5 mg PO DAILY Qty: 30 0RF Interventions: ED Discharge Assessment Last Done: 03/27/25 22:13 Discharge Date/Time: 03/27/25 22:21 Print Language: Wolof
--- NOTE | 2025-03-27 14:02 | ECG_ITS ---
Test Reason : chest thighness Blood Pressure : */* mmHG Vent. Rate : 97 BPM Atrial Rate : 97 BPM P-R Int : 166 ms QRS Dur : 96 ms QT Int : 338 ms P-R-T Axes : 51 25 36 degrees QTcB Int : 429 ms Normal sinus rhythm Normal ECG When compared with ECG of 15-Jan-2025 18:10, No significant change was found Referred By: Misty Ojeda Electronically Signed By: SUDHIR MOSCOSO
[2025-03-27 14:25] LABS: MANUAL DIFF FLAG NO
[2025-03-27 14:32] LABS: Basophils Percent Auto 0.4 % (0-2); Eosinophils Absolute Auto 0.1 X10*3/uL (0.0-0.4); Eosinophils Percent Auto 2.7 % (0-4); Hematocrit 42.9 % (42.0-52.0); Hemoglobin 15.5 g/dl (14.0-18.0); Imm Gran Abs Auto 0.01 X10*3/uL (0.00-0.03); Imm Gran Pct Auto 0.2 % (0.0-0.4); Lymphocytes Absolute Auto 0.8 X10*3/uL (1.2-4.9); Lymphocytes Percent Auto 16.5 % (20-40); Mean Corpuscular HGB Conc 36.1 g/dl (31.0-36.0); Mean Corpuscular Hemoglobin 26.6 pg (27.0-33.0); Mean Corpuscular Volume 73.7 fL (80.0-98.0); Mean Platelet Volume 9.1 fL (9.4-12.4); Monocytes Absolute Auto 0.2 X10*3/uL (0.1-1.2); Monocytes Percent Auto 5.1 % (2-11); Neutrophils Absolute Auto 3.6 x10*3/uL (2.0-8.3); Neutrophils Percent Auto 75.1 % (45-73); Platelet Count 119 X10*3/uL (160-400); Red Blood Count 5.82 X10*6/uL (4.60-5.80); Red Cell Distribution Width 15.7 % (11.0-16.0); White Blood Count 4.7 X10*3/uL (4.8-10.8)
[2025-03-27 14:39] LABS: Anion Gap 16 (12-20); Blood Urea Nitrogen 17 mg/dL (9-16); Calcium 9.8 mg/dL (8.4-10.2); Carbon Dioxide 23 mmol/L (22-29); Chloride 98 mmol/L (96-108); Creatinine Clr Calc Pharmacy 91.9; Estimated Glomerular Filt Rate > 60; Glucose Random 312 mg/dL (60-115); Potassium 4.1 mmol/L (3.3-5.1); Sodium 133 mmol/L (135-145)
[2025-03-27 15:12] LABS: Influenza A PCR NEGATIVE (Negative); Influenza B PCR NEGATIVE (Negative); Resp Syncy Virus RNA Qual PCR NEGATIVE (Negative); SARS COV2 PCR INHOUSE NEGATIVE (Negative)
[2025-03-27 19:04] VITALS: BP 138/93; PULSE 94; RESP 16; TEMP 36.7; O2SAT 97
[2025-03-27 21:13] VITALS: BP 169/72; PULSE 77; RESP 16; TEMP 36.8; O2SAT 95
[2025-03-27 22:00] VITALS: O2SAT 97
[2025-03-27 22:13] VITALS: BP 169/72; PULSE 77; RESP 16; TEMP 36.8; O2SAT 95
== END 2025-03-27 22:21 | disposition home or self-care (01) ==
PROVIDERS: Physician Assistant Medical; Emergency Provider Emergency Medicine
DX: R19.7 Diarrhea, unspecified (principal); Z03.818 Encounter for observation for suspected exposure to other biological agents ruled out; E11.9 Type 2 diabetes mellitus without complications; I10 Essential (primary) hypertension; E78.5 Hyperlipidemia, unspecified; Z79.4 Long term (current) use of insulin; Z79.02 Long term (current) use of antithrombotics/antiplatelets; Z79.899 Other long term (current) drug therapy
CPT/HCPCS: 0241U; 36415; 71046; 80048; 85025; 93005; 99283; 99285

== ENCOUNTER → 2025-03-27 14:02 | Outpatient (BNV) | payer OTHER, SELFPAY | PROVIDERS: Emergency Provider Emergency Medicine; Visit Provider Internal Medicine | DX: R07.89 Other chest pain (principal) | CPT/HCPCS: 93010 ==

== ENCOUNTER → 2025-03-27 14:02 | Outpatient (BNV) | payer OTHER, SELFPAY | PROVIDERS: Visit Provider Radiology Diagnostic Radiology | DX: M48.14 Ankylosing hyperostosis [Forestier], thoracic region (principal) | CPT/HCPCS: 71046 ==

== ENCOUNTER 2025-04-01 12:55 | Emergency (ER) | payer OTHER, SELFPAY ==
--- NOTE | ~2025-04-01 | CT_ITS ---
CLINICAL HISTORY: Fall. drinkin CT cervical spine without contrast Comparison: None provided Findings: Vertebral alignment is within normal limits. Multilevel disc space narrowing and endplate osteophyte formation, as well as facet hypertrophy. No acute fractures or dislocations. No acute findings on limited view of the intracranial contents. Soft tissues of the neck are normal. No consolidation or effusion at the lung apices. IMPRESSION: No acute findings. This document has been electronically signed by: Lian Davison MD on 04/01/2025 16:04:33
--- NOTE | ~2025-04-01 | CT_ITS ---
CLINICAL HISTORY: fall, drinking CT head without contrast Comparison: CT/SR - CT HEAD/BRAIN WO IV CON - 01/15/25 18:53 EDT Findings: No intra-axial mass, midline shift, hydrocephalus, or acute hemorrhage. No significant atrophy-like change or white matter disease. Mild bilateral ethmoid and maxillary sinus mucosal thickening. Mastoids are clear. The orbits are within normal limits. No skull fracture. IMPRESSION: 1. No acute intracranial findings. This document has been electronically signed by: Lian Davison MD on 04/01/2025 16:04:23
--- NOTE | ~2025-04-01 | XR_ITS ---
CLINICAL HISTORY: fall 3 views lumbar spine Comparison: None provided Findings: Loss of normal lumbar lordosis. No acute fractures or dislocation. Multilevel disc space narrowing and endplate osteophyte formation, as well as facet hypertrophy. IMPRESSION: No acute findings. This document has been electronically signed by: Lian Davison MD on 04/01/2025 15:16:17
[2025-04-01 13:17] VITALS: BP 114/75; BP 144/66; PULSE 82; PULSE 88; RESP 18; TEMP 36.4; O2SAT 95; BMI 27.6
[2025-04-01 13:19] LABS: Glucose, Whole Blood 281 mg/dL (60-115)
[2025-04-01 13:26] VITALS: BP 114/75; PULSE 82; RESP 16; TEMP 36.6; O2SAT 95
--- NOTE | 2025-04-01 13:45 | PC.NURSE ---
Pt up wandering around ED- steady gait while ambulating. Redirected back into bed. Pt self removed director of cardiac cath lab leads/bp cuff- pt educated on need to monitor HR/BP. Pt continues to attempt to get out of bed.
--- NOTE | 2025-04-01 13:51 | ED.GENADULT ---
HPI - General Adult General Chief complaint: Back Pain/Injury Stated complaint: BACK-PAIN Time Seen by Provider: 04/01/25 13:06 Source: patient Mode of arrival: ambulatory Limitations: no limitations History of Present Illness ED Provider: Stevan Domínguez HPI narrative: 55-year-old male history of alcohol abuse presents to ED for drinking in fall and complaining of back pain. Patient admits to drinking lots of whiskey. Patient was trying to leave and was convinced to stay in his bed and wait to be evaluated. Related Data Home Medications ?Medication ?Instructions ?Recorded ?Confirmed aspirin 81 mg chewable tablet 1 tab PO DAILY 03/04/24 03/04/24 insulin glargine 100 unit/mL (3 15 unit subcut BEDTIME 03/04/24 03/04/24 mL) subcutaneous pen (Lantus Solostar U-100 Insulin) lisinopril 20 mg tablet 20 mg PO DAILY 03/04/24 03/04/24 metformin 1,000 mg tablet 1,000 mg PO BID 03/04/24 03/04/24 rosuvastatin 40 mg tablet 40 mg PO BEDTIME 03/04/24 03/04/24 sertraline 100 mg tablet 100 mg PO DAILY 03/04/24 03/04/24 thiamine HCl (vitamin B1) 100 mg 100 mg PO DAILY 03/04/24 03/04/24 tablet Previous Rx's ?Medication ?Instructions ?Recorded glucagon 1 mg solution for 1 mg subcut Q20M PRN hypoglycemia 11/14/22 injection (Glucagon Emergency Kit) #1 ea amlodipine 5 mg tablet 5 mg PO DAILY #30 tabs 06/21/24 aspirin 81 mg tablet,delayed 81 mg PO DAILY #30 tabs 06/21/24 release insulin glargine 100 unit/mL (3 10 unit (0.1 mL) subcut QPM #15 mL 06/21/24 mL) subcutaneous pen (Lantus Solostar U-100 Insulin) insulin lispro 100 unit/mL 5 unit (0.05 mL) subcut TID #15 mL 06/21/24 subcutaneous pen (Admelog SoloStar U-100 Insulin lispro) lisinopril 40 mg tablet 40 mg PO DAILY #30 tabs 06/21/24 metformin 1,000 mg tablet 1,000 mg PO BID #60 tabs 06/21/24 rosuvastatin 40 mg tablet 40 mg PO DAILY #30 tabs 06/21/24 sertraline 100 mg tablet 100 mg PO DAILY #30 tabs 06/21/24 thiamine HCl (vitamin B1) 100 mg 100 mg PO BID #60 tabs 06/21/24 tablet Allergies Allergy/AdvReac Type Severity Reaction Status Date / Time Penicillins (PENICILLINS) Allergy Mild RASH Verified 04/01/25 13:20 sildenafil (Viagra) AdvReac Unknown flush, Verified 04/01/25 13:20 headaches PENICILLIN Allergy Unknown rash Uncoded 04/01/25 13:20 Review of Systems Review of Systems: Low back pain Yes all other systems are reviewed and are negative PMFSH Past Medical History Medical History Type 2 diabetes mellitus Social History Social History Alcohol intake: current Alcohol intake frequency: 3 or more drinks per day Alcohol type: hard liquor Substance Use Type: Crack/Cocaine Physical Exam ED Vital Signs: Vital Signs - 24 hr 04/01/25 13:17 04/01/25 13:26 04/01/25 16:50 Temperature 97.6 F 97.8 F Pulse Rate 82 82 92 Respiratory Rate 18 16 18 Blood Pressure 114/75 114/75 116/70 Pulse Oximetry 95 95 94 Oxygen Delivery Method Room Air Room Air Room Air 04/01/25 18:33 Temperature Pulse Rate 82 Respiratory Rate 18 Blood Pressure 146/87 H Pulse Oximetry 95 Oxygen Delivery Method Room Air BMI result Body Mass Index 27.6 Const General: cooperative, healthy appearing, comfortable, no acute distress, well developed, alert, awake and Physically active Orientation/consciousness: patient oriented x3 HENMT Head: Yes normal to inspection, Yes No palpable skull fracture present, Yes normocephalic and Yes atraumatic Eyes General: appearance normal, both eyes and all related structures Neck Neck: Yes normal visual inspection, Yes full ROM, Yes no lymphadenopathy, Yes no meningeal signs, Yes trachea midline, Yes supple, No anterior neck swelling and No tender Chest Chest palpation & inspection: normal inspection of the chest and normal palpation of entire chest wall Resp Effort & Inspection: normal respiratory effort Auscultation: clear to auscultation bilaterally, no crackles, no rales, no rhonchi and no wheezes Cardio Jugular venous distension: no JVD Heart sounds: S1 normal heart sound present and S2 normal heart sound present GI Inspection: Yes normal to inspection Palpation (GI): Soft to palpation, not firm, nontender, no guarding and not rigid General: Yes no CVA tenderness Back/Spine/Pelvis Back: no CVA tenderness and back tenderness (lumbar) Skin General skin exam: no rashes or lesions noted, elasticity normal and turgor normal Neuro General: patient oriented x3, gait normal, tone normal, moves all extremities, Normal light touch and pain sensation, no meningeal signs, no focal motor deficits, CN's II-XI intact bilaterally and normal sensation to monofilament Extrem General: Yes normal to inspection, Yes full ROM and Yes capillary refill normal Psych Appearance: grossly normal, well kempt and not disheveled Medications Administered Discontinued Medications Generic Name Dose Route Start Last Admin Trade Name Freq PRN Reason Stop Dose Admin Sodium Chloride 1,000 mls @ 999 mls/hr 04/01/25 16:28 04/01/25 19:03 Ns IV 04/01/25 17:28 Infused .Q1H1M STA Infusion Sodium Chloride 1,000 mls @ 999 mls/hr 04/01/25 16:28 04/01/25 19:03 Ns IV 04/01/25 17:28 Infused .Q1H1M STA Infusion Insulin Human Regular 5 unit 04/01/25 17:31 04/01/25 18:02 Insulin Regular, Human 100 Unit/Ml 10 Ml Vial IVPUSH 04/01/25 17:32 5 unit ONCE ONE Administration Medical Decision Making Medical Decision Making MDM Narrative: 55 mL presents to ED for drinking and falling. Patient was trying to leave. Patient was brought back to the ED and convinced to be evaluated to make sure there is no traumatic head and neck injury. No signs of obvious head or neck injury. Lumbar spine positive for tenderness on palpation. Spoke with Maddie Mueller [phone] who were coming to see patient. Images ordered. 3:54pm: Patient's sesar came to the ED and spoke with patient who is now agreeable for detox for alcohol abuse. Images still pending. 7: 59pm: Patient was evaluated by care team and he refused detox. Patient was given detox information and programs which he states he will call on its own. present at bedside. Patient discharged into 's care. Head CT cervical spine CT scan came back normal. Lumbar spine x-ray negative for fracture. Patient explained worrisome signs and informed to return to the ED immediately. Patient discharged into care Maddie who will make sure he call detox programs. Not suspecting Delirious tremors, withdrawal, DKA, or any other life threatening eitologies. 04/01/25 1728 Maribel Matias MD the care team evaluated the patient. Patient requested resources with detox and substance abuse. Patient states that he would like to make his own phone calls. Denies SI or HI. Patient feels ready to be discharged home. Patient it alert and oriented x3, not SI or HI reviewing patient's labs, his glucose is 395. Patient receiving IV fluids and 5 units of insulin. patient is supposed to take 1000 mg of metformin b.i.d. however, it is well-known the patient is noncompliant with his meds Differential Diagnosis Differential Diagnoses: The differential diagnosis associated with the presentation includes (Alcohol and tox, brain bleed, neck fracture, lumbar spine fracture) Admission/Observation Consideration of admission/observation: Escalation of care including admission/observation considered Consult Healthcare Provider Management of the patient was discussed with: Wrecking Supervisor (Care team tin recovery worker) Lab Data MDM Lab Attestation statement: I reviewed the patient's lab results. 04/01/25 16:03 04/01/25 16:03 Labs: Lab Results 04/01/25 04/01/25 04/01/25 Range/Units 13:15 15:59 16:03 WBC 4.3 L (4.8-10.8) X10*3/uL RBC 5.12 (4.60-5.80) X10*6/uL Hgb 13.6 L (14.0-18.0) g/dl Hct 38.5 L (42.0-52.0) % MCV 75.2 L (80.0-98.0) fL MCH 26.6 L (27.0-33.0) pg MCHC 35.3 (31.0-36.0) g/dl RDW 15.2 (11.0-16.0) % Plt Count 160 D (160-400) X10*3/uL MPV 8.7 L (9.4-12.4) fL Immature Gran % (Auto) 0.5 H (0.0-0.4) % Neut % (Auto) 39.3 L (45-73) % Lymph % (Auto) 48.8 H (20-40) % [place] % (Auto) 5.8 (2-11) % Eos % (Auto) 4.7 H (0-4) % Baso % (Auto) 0.9 (0-2) % Lymph # (Auto) 2.1 (1.2-4.9) X10*3/uL [place] # (Auto) 0.3 (0.1-1.2) X10*3/uL Eos # (Auto) 0.2 (0.0-0.4) X10*3/uL Baso # (Auto) 0.0 (0.0-0.2) X10*3/uL Abs Immat Gran (auto) 0.02 (0.00-0.03) X10*3/uL Absolute Neuts (auto) 1.7 L (2.0-8.3) x10*3/uL Absolute Nucleated RBC 0.000 (0.0-0.012) X10*3/uL Nucleated RBC % (auto) 0.0 (0.0-0.2) /100WBC Sodium 142 (135-145) mmol/L Potassium 4.0 (3.3-5.1) mmol/L Chloride 104 (96-108) mmol/L Carbon Dioxide 23 (22-29) mmol/L Anion Gap 19 (12-20) BUN 14 (9-16) mg/dL Creatinine 1.18 (0.5-1.4) mg/dL Estim Creat Clear Calc 72.4 Estimated GFR > 60 POC Glucose 281 H (60-115) mg/dL Random Glucose 394 H* (60-115) mg/dL Calcium 8.8 D (8.4-10.2) mg/dL Total Bilirubin 0.2 (0.0-1.0) mg/dL AST 68 H (5-37) U/L ALT 183 H (0-40) U/L Alkaline Phosphatase 66 (39-117) U/L Total Protein 7.5 (6.5-8.0) g/dL Albumin 4.8 (3.5-5.0) g/dL Urine Color Yellow Urine Appearance Clear Urine pH 5.5 (5.0-9.0) Ur Specific [place] >= 1.030 H (1.005-1.025) Urine Protein 30 (1+) H (Neg-Trace) mg/dL Urine Glucose (UA) >=1000 H (Negative) mg/dL Urine Ketones Trace (Negative) mg/dL Urine Blood Negative (Negative) Urine Nitrite Negative (Negative) Ur Leukocyte Esterase Negative (Negative) Urine RBC 0-2 (0-2) /HPF Urine WBC 0-5 (0-5) /HPF Ur Squamous Epith Cells 0-2 (0-2) /HPF Urine Bacteria None Seen (None Seen) Hyaline Casts 0-2 (0-2) /LPF Urine Opiates Screen Not Detected (Not Detect) Ur Buprenorphine Scrn Not Detected (Not Detect) ng/mL Ur Oxycodone Screen Not Detected (Not Detect) ng/mL Urine Methadone Screen Not Detected (Not Detect) ng/mL Urine Fentanyl Screen Not Detected (Not Detect) Ur Barbiturates Screen Not Detected (Not Detect) Ur Phencyclidine Scrn Not Detected (Not Detect) Ur Amphetamines Screen Not Detected (Not Detect) U Benzodiazepines Scrn Not Detected (Not Detect) Urine Cocaine Screen Not Detected (Not Detect) U Marijuana (THC) Screen Not Detected (Not Detect) Ethyl Alcohol 322 H* mg/dL 04/01/25 04/01/25 Range/Units 18:01 19:15 WBC (4.8-10.8) X10*3/uL RBC (4.60-5.80) X10*6/uL Hgb (14.0-18.0) g/dl Hct (42.0-52.0) % MCV (80.0-98.0) fL MCH (27.0-33.0) pg MCHC (31.0-36.0) g/dl RDW (11.0-16.0) % Plt Count (160-400) X10*3/uL MPV (9.4-12.4) fL Immature Gran % (Auto) (0.0-0.4) % Neut % (Auto) (45-73) % Lymph % (Auto) (20-40) % [place] % (Auto) (2-11) % Eos % (Auto) (0-4) % Baso % (Auto) (0-2) % Lymph # (Auto) (1.2-4.9) X10*3/uL [place] # (Auto) (0.1-1.2) X10*3/uL Eos # (Auto) (0.0-0.4) X10*3/uL Baso # (Auto) (0.0-0.2) X10*3/uL Abs Immat Gran (auto) (0.00-0.03) X10*3/uL Absolute Neuts (auto) (2.0-8.3) x10*3/uL Absolute Nucleated RBC (0.0-0.012) X10*3/uL Nucleated RBC % (auto) (0.0-0.2) /100WBC Sodium (135-145) mmol/L Potassium (3.3-5.1) mmol/L Chloride (96-108) mmol/L Carbon Dioxide (22-29) mmol/L Anion Gap (12-20) BUN (9-16) mg/dL Creatinine (0.5-1.4) mg/dL Estim Creat Clear Calc Estimated GFR POC Glucose 354 H* 247 H (60-115) mg/dL Random Glucose (60-115) mg/dL Calcium (8.4-10.2) mg/dL Total Bilirubin (0.0-1.0) mg/dL AST (5-37) U/L ALT (0-40) U/L Alkaline Phosphatase (39-117) U/L Total Protein (6.5-8.0) g/dL Albumin (3.5-5.0) g/dL Urine Color Urine Appearance Urine pH (5.0-9.0) Ur Specific [place] (1.005-1.025) Urine Protein (Neg-Trace) mg/dL Urine Glucose (UA) (Negative) mg/dL Urine Ketones (Negative) mg/dL Urine Blood (Negative) Urine Nitrite (Negative) Ur Leukocyte Esterase (Negative) Urine RBC (0-2) /HPF Urine WBC (0-5) /HPF Ur Squamous Epith Cells (0-2) /HPF Urine Bacteria (None Seen) Hyaline Casts (0-2) /LPF Urine Opiates Screen (Not Detect) Ur Buprenorphine Scrn (Not Detect) ng/mL Ur Oxycodone Screen (Not Detect) ng/mL Urine Methadone Screen (Not Detect) ng/mL Urine Fentanyl Screen (Not Detect) Ur Barbiturates Screen (Not Detect) Ur Phencyclidine Scrn (Not Detect) Ur Amphetamines Screen (Not Detect) U Benzodiazepines Scrn (Not Detect) Urine Cocaine Screen (Not Detect) U Marijuana (THC) Screen (Not Detect) Ethyl Alcohol mg/dL Independent Historian Clinical information obtained from an independent historian. History obtained from or confirmed by: Spouse (Maddie) and Other (Patient is) Discharge Plan Discharge Clinical Impression: Alcohol use Patient Disposition: Home, Self-Care Instructions: Abuse of Alcohol (DC), At-Risk Alcohol Use (ED), Diabetic Hyperglycemia (ED) Additional Instructions: Return to the ED immediately for any chest pain, shortness of breath, abdominal pain, headache, dizziness, nausea, vomiting, suicidal/homicidal ideation, or any other concerning symptoms. Recommend calling the list you were given by tin recovery worker/care team. Recommend follow-up with PCP Alcohol use disorder You were seen in the Emergency Department today for treatment of alcohol use disorder.? You may have been given medications to help with your withdrawal symptoms.? Please do not drink alcohol with them. This is very dangerous and can cause respiratory depression or other adverse reactions depending on the medication. If you would like to cut down or stop your alcohol use please consider calling our outpatient Addiction Treatment office:? [facility], [place] (M-F 9a-5p) [address] [place] [address] ? You have also been given a list of treatment providers in the area that can assist as well.? If you experience seizures, vomiting blood, black stools, falls, severe headache, chest pain, fevers, trouble breathing, hallucinations or any other concerns you need to call 911 or seek immediate care. Please stay hydrated. g detox programs from . Prescriptions: No Action Glucagon Emergency Kit (human) 1 mg recon soln 1 mg subcut Q20M PRN (Reason: hypoglycemia) Qty: 1 0RF Rx Instructions: until target blood sugar attained lisinopril 20 mg tablet 20 mg PO DAILY sertraline 100 mg tablet 100 mg PO DAILY thiamine HCl (vitamin B1) 100 mg tablet 100 mg PO DAILY metformin 1,000 mg tablet 1,000 mg PO BID aspirin 81 mg tablet,chewable 1 tab PO DAILY rosuvastatin 40 mg tablet 40 mg PO BEDTIME insulin glargine [Lantus Solostar U-100 Insulin] 100 unit/mL (3 mL) insulin pen 15 unit subcut BEDTIME lisinopril 40 mg tablet 40 mg PO DAILY Qty: 30 2RF sertraline 100 mg tablet 100 mg PO DAILY Qty: 30 2RF thiamine HCl (vitamin B1) 100 mg tablet 100 mg PO BID Qty: 60 2RF metformin 1,000 mg tablet 1,000 mg PO BID Qty: 60 2RF aspirin 81 mg tablet,delayed release (DR/EC) 81 mg PO DAILY Qty: 30 2RF rosuvastatin 40 mg tablet 40 mg PO DAILY Qty: 30 2RF insulin glargine [Lantus Solostar U-100 Insulin] 100 unit/mL (3 mL) insulin pen 10 unit subcut QPM Qty: 15 2RF insulin lispro [Admelog SoloStar U-100 Insulin] 100 unit/mL insulin pen 5 unit subcut TID Qty: 15 2RF amlodipine 5 mg tablet 5 mg PO DAILY Qty: 30 0RF Stand Alone Forms: Work/School Release Interventions: ED Discharge Assessment Last Done: 04/01/25 20:18 Discharge Date/Time: 04/01/25 20:18 Print Language: Telugu
[2025-04-01 16:08] LABS: MANUAL DIFF FLAG NO
[2025-04-01 16:10] LABS: Basophils Percent Auto 0.9 % (0-2); Eosinophils Absolute Auto 0.2 X10*3/uL (0.0-0.4); Eosinophils Percent Auto 4.7 % (0-4); Hematocrit 38.5 % (42.0-52.0); Hemoglobin 13.6 g/dl (14.0-18.0); Imm Gran Abs Auto 0.02 X10*3/uL (0.00-0.03); Imm Gran Pct Auto 0.5 % (0.0-0.4); Lymphocytes Absolute Auto 2.1 X10*3/uL (1.2-4.9); Lymphocytes Percent Auto 48.8 % (20-40); Mean Corpuscular HGB Conc 35.3 g/dl (31.0-36.0); Mean Corpuscular Hemoglobin 26.6 pg (27.0-33.0); Mean Corpuscular Volume 75.2 fL (80.0-98.0); Mean Platelet Volume 8.7 fL (9.4-12.4); Monocytes Absolute Auto 0.3 X10*3/uL (0.1-1.2); Monocytes Percent Auto 5.8 % (2-11); Neutrophils Absolute Auto 1.7 x10*3/uL (2.0-8.3); Neutrophils Percent Auto 39.3 % (45-73); Platelet Count 160 X10*3/uL (160-400); Red Blood Count 5.12 X10*6/uL (4.60-5.80); Red Cell Distribution Width 15.2 % (11.0-16.0); White Blood Count 4.3 X10*3/uL (4.8-10.8)
[2025-04-01 16:10] LABS: Appearance Urine Clear; Color Urine Yellow; Glucose Urine UA >=1000 mg/dL (Negative); Leukocyte Esterase Urine Negative (Negative); Nitrite Urine Negative (Negative); PH 5.5 (5.0-9.0); Specific Gravity - Urine >= 1.030 (1.005-1.025); UMIC TRIGGER UACC YES; Urine Blood Negative (Negative); Urine Ketones Trace mg/dL (Negative); Urine Protein 30 (1+) mg/dL (Neg-Trace)
[2025-04-01 16:15] LABS: Bacteria Urine None Seen (None Seen); Hyaline Casts Urine 0-2 /LPF (0-2); RBC Urine 0-2 /HPF (0-2); Squamous Epithelial Cell Urine 0-2 /HPF (0-2); WBC Urine 0-5 /HPF (0-5)
[2025-04-01 16:19] LABS: Amphetamine Screen Urine Not Detected (Not Detect); Barbiturates, Urine Not Detected (Not Detect); Benzodiazepines Screen Urine Not Detected (Not Detect); Buprenorphine Scr Not Detected (Not Detect); Cannabinoid Screen Urine Not Detected (Not Detect); Cocaine Screen Urine Not Detected (Not Detect); Fentanyl, urine Not Detected (Not Detect); Methadone Screen, Urine Not Detected (Not Detect); Opiate Screen Urine Not Detected (Not Detect); Oxycodone Screen Urine Not Detected (Not Detect); Phencyclidine Screen Urine Not Detected (Not Detect)
[2025-04-01 16:28] LABS: Alanine Aminotransferase 183 U/L (0-40); Albumin Level 4.8 g/dL (3.5-5.0); Alkaline Phosphatase 66 U/L (39-117); Anion Gap 19 (12-20); Aspartate Amino Transferase 68 U/L (5-37); Bilirubin Total 0.2 mg/dL (0.0-1.0); Blood Urea Nitrogen 14 mg/dL (9-16); Calcium 8.8 mg/dL (8.4-10.2); Carbon Dioxide 23 mmol/L (22-29); Chloride 104 mmol/L (96-108); Creatinine Clr Calc Pharmacy 72.4; Estimated Glomerular Filt Rate > 60; Ethanol 322 mg/dL; Glucose Random 394 mg/dL (60-115); Sodium 142 mmol/L (135-145); Total Protein 7.5 g/dL (6.5-8.0)
[2025-04-01] MEDS: 0.9 % Sodium Chloride 1,000 ML 999 ML IV ×2 (16:49)
[2025-04-01 16:50] VITALS: BP 116/70; PULSE 92; RESP 18; O2SAT 94
--- NOTE | 2025-04-01 17:15 | PC.NURSE ---
Pt changed into hospital gown. Belongings locked in [facility] d/t report of ETOH use and alcohol found in pockets. Pt belongings in [facility] bottom shelf to the right.
[2025-04-01] MEDS: Insulin Regular, Human 100 UNIT/ML 10 ML VIAL IVPUSH (18:02)
[2025-04-01 18:06] LABS: Glucose, Whole Blood 354 mg/dL (60-115)
[2025-04-01 18:33] VITALS: BP 146/87; PULSE 82; RESP 18; O2SAT 95
[2025-04-01 19:20] LABS: Glucose, Whole Blood 247 mg/dL (60-115)
--- NOTE | 2025-04-01 20:10 | PC.NURSE ---
belongings not logged in [facility]. belongings returned now
[2025-04-01 20:18] VITALS: BP 146/87; PULSE 82; RESP 18; TEMP 36.9; O2SAT 95
== END 2025-04-01 20:18 | disposition home or self-care (01) ==
PROVIDERS: Physician Assistant; Emergency Provider Emergency Medicine
DX: M54.9 Dorsalgia, unspecified (principal); E11.9 Type 2 diabetes mellitus without complications; F10.90 Alcohol use, unspecified, uncomplicated; Y90.8 Blood alcohol level of 240 mg/100 ml or more; Z91.81 History of falling; Z79.899 Other long term (current) drug therapy
CPT/HCPCS: 36415; 70450; 72100; 72125; 80053; 80307; 81001; 82947; 85025; 96361; 96374; 99285; S9485

== ENCOUNTER → 2025-04-01 13:49 | Outpatient (BNV) | payer OTHER, SELFPAY | PROVIDERS: Emergency Provider Emergency Medicine; Visit Provider Radiology Diagnostic Radiology | DX: M50.30 Other cervical disc degeneration, unspecified cervical region (principal); G44.309 Post-traumatic headache, unspecified, not intractable; M51.360 Other intervertebral disc degeneration, lumbar region with discogenic back pain only | CPT/HCPCS: 70450; 72100; 72125 ==

== ENCOUNTER 2025-05-15 10:32 | Outpatient (REF) | payer MEDICAID, SELFPAY ==
[2025-05-15 11:25] LABS: MANUAL DIFF FLAG NO
[2025-05-15 11:29] LABS: Hematocrit 41.7 % (42.0-52.0); Hemoglobin 14.6 g/dl (14.0-18.0); Imm Gran Abs Auto 0.01 X10*3/uL (0.00-0.03); Imm Gran Pct Auto 0.2 % (0.0-0.4); Lymphocytes Absolute Auto 1.5 X10*3/uL (1.2-4.9); Mean Corpuscular HGB Conc 35.0 g/dl (31.0-36.0); Mean Corpuscular Hemoglobin 26.0 pg (27.0-33.0); Mean Corpuscular Volume 74.3 fL (80.0-98.0); NRBC Abs Auto 0.000 X10*3/uL (0.0-0.012); NRBC Pct Auto 0.0 /100WBC (0.0-0.2); Platelet Count 182 X10*3/uL (160-400); Red Blood Count 5.61 X10*6/uL (4.60-5.80); White Blood Count 4.7 X10*3/uL (4.8-10.8)
--- OUTSIDE RECORDS SUMMARY | 2025-05-15 11:36 | XMS_ITS | Clinical Summary ---
Author Organization [facility] Address [address] [place] [address] Care Team Providers Care Board Catcher Name Role Phone Veto Parker MD Primary Care Provider [phone] Source Comments PLEASE NOTE, if this patient [...] Administration Dates Next Due Hep B, Adult/Adol ([id number]-AD ULT) 01/03/2016 MMR (MMR II/Priorix) 01/03/2016 PPD 01/03/2016 TDAP [...] 86 01/03/2016 10:04 AM EDT Temperature 36.7 C (98 F) 01/03/2016 10:04 AM EDT Respiratory Rate 14 01/03/2016 10:04 AM EDT Oxygen Saturation - - Inhaled Oxygen Concentration - - Weight 87.1 kg (192 lb) 01/03/2016 10:04 AM EDT Height 170.2 cm (5' 7 ) 01/03/2016 10:04 AM EDT Body Mass Index 30.07 01/03/2016 10:04 AM EDT Plan of Treatment Not on file Insurance [place] MEDICAID Care Teams Board Catcher Relationship Specialty Start Date End Date Veto Parker MD [address] [place] [address] PCP - General Internal Medicine 01/03/16
[2025-05-15 12:00] LABS: Alanine Aminotransferase 37 U/L (0-40); Albumin Level 5.0 g/dL (3.5-5.0); Alkaline Phosphatase 75 U/L (39-117); Anion Gap 18 (12-20); Aspartate Amino Transferase 69 U/L (5-37); Blood Urea Nitrogen 16 mg/dL (9-16); Calcium 10.7 mg/dL (8.4-10.2); Carbon Dioxide 26 mmol/L (22-29); Chloride 98 mmol/L (96-108); Cholesterol 364 mg/dL (<200); Estimated Glomerular Filt Rate > 60; HDL Cholesterol 83 mg/dL (>40); Potassium 3.9 mmol/L (3.3-5.1); Sodium 138 mmol/L (135-145); Total Protein 7.7 g/dL (6.5-8.0); Triglycerides 272 mg/dL (<150)
[2025-05-16 04:08] LABS: ~HepC Num1 0.10 S/CO (0.00-0.79); ~Hepatitis C Antibody Nonreactive (Nonreactive)
== END 2025-05-15 10:33 | disposition home or self-care (01) ==
LOC: HO.HHCL 10:32
PROVIDERS: PCP Nurse Practitioner Family; Visit Provider Nurse Practitioner Family
DX: I10 Essential (primary) hypertension (principal); F10.20 Alcohol dependence, uncomplicated; Z11.59 Encounter for screening for other viral diseases
CPT/HCPCS: 36415; 80053; 80061; 85025; 86803

== ENCOUNTER 2025-08-20 15:16 | Inpatient (IN) | payer MEDICAID, SELFPAY ==
[2025-08-20] VITALS (7 sets, daily range): BP systolic 164–198; BP diastolic 90–109; PULSE 94–110; RESP 14–19; TEMP 36.8–37.3; O2SAT 94–97; BMI 27.4
--- NOTE | 2025-08-20 | ECG_ITS ---
Test Reason : AMS Blood Pressure : */* mmHG Vent. Rate : 102 BPM Atrial Rate : 102 BPM P-R Int : 196 ms QRS Dur : 110 ms QT Int : 352 ms P-R-T Axes : 48 28 34 degrees QTcB Int : 458 ms Sinus tachycardia Otherwise normal ECG When compared with ECG of 27-Mar-2025 14:09, No significant change was found Referred By: Generic ED Physician Electronically Signed By: SUDHIR MOSCOSO
--- NOTE | 2025-08-20 | EEG_ITS ---
Reason for Exam: Seizure History: HTN, HLD, alcohol disorder, type 2 diabetes mellitus Medication: phenobarbital, lisinopril, metformin, sertraline Technical description:? Photic stimulation: Yes Hyperventilation:?Yes Behavioral state: persistent movement, restless State of Consciousness: Awake Skull defect: None Sedation: None Handedness: Right Duration of study:? 30min ? ? 02sec Description: This is a 16 channel EEG with an EKG lead. Patient is reported awake during the tracing. Background EEG rhythm is low amplitude fast] with no obvious asymmetry or paroxysmal tendency. Photic stimulation does not produce any significant driving. Hyperventilation is is unremarkable. No sharp waves, spikes, asymmetric activity, or paroxysmal activity noted. Cardiac lead does not reveal any significant abnormality. Impression: Unremarkable EEG. MTDD
--- NOTE | ~2025-08-20 | CT_ITS ---
CLINICAL HISTORY: seizure? CT head without contrast Comparison: CT - CT HEAD/BRAIN WO IV CON - 04/01/25 14:41 EDT Findings: No intra-axial mass, midline shift, hydrocephalus, or acute hemorrhage. No significant atrophy. Mild nonspecific supratentorial white matter hypodensities most suggestive of chronic small-vessel ischemic changes. Atherosclerotic vascular disease. Mild bilateral basal ganglia calcifications. Mucosal thickening in bilateral maxillary sinuses, frontal sinuses and sphenoid sinuses and within the ethmoid air cells bilaterally. The orbits are within normal limits. There is no acute fracture. IMPRESSION: 1. No acute intracranial findings. 2. Pansinus inflammatory disease with interval worsening. This document has been electronically signed by: Berenice Rogel MD on 08/20/2025 18:08:38
--- NOTE | ~2025-08-20 | CT_ITS ---
CLINICAL HISTORY: abd pain and vomiting blood CT abdomen and pelvis with contrast Comparison: None provided Findings: No consolidation or effusion. Subsegmental atelectasis/scarring in the lingula. Minimal bilateral basilar dependent atelectasis. Gallbladder is somewhat distended with no definite gallstones. No biliary ductal dilatation. The liver is enlarged and demonstrates significant low parenchymal attenuation consistent with steatosis. The spleen, pancreas, adrenal glands and left kidney are unremarkable. 2 cm simple right renal cortical cyst. No ureteral stones and no hydronephrosis or hydroureter bilaterally. No bowel obstruction, pneumoperitoneum, or pneumatosis. Apparent circumferential wall thickening of splenic flexure and descending colon likely due to colonic decompression. No adjacent inflammatory stranding. No free fluid or loculated fluid collection. Appendix not clearly identified with no pericecal inflammatory changes. Urinary bladder and prostate within normal limits. Bilateral vas deferens calcifications. Mild atherosclerotic vascular disease with no aneurysm of the abdominal aorta. No acute fracture. Sclerotic changes along the inferior endplate of L5 with irregular endplate. Degenerative changes lower aspect thoracic spine. IMPRESSION: 1. No acute findings in the abdomen and pelvis. 2. Hepatomegaly and hepatic steatosis. 3. Apparent circumferential wall thickening of splenic flexure and descending colon likely due to decompression. 4. Sclerotic changes and irregularity of inferior endplate of L5 which is nonspecific. Further evaluate clinically. This document has been electronically signed by: Berenice Rogel MD on 08/20/2025 18:02:46
--- NOTE | ~2025-08-20 | MR_ITS ---
EXAMINATION: MR BRAIN WITHOUT AND WITH CONTRAST CLINICAL INFORMATION: Seizure. COMPARISON: No prior MRI. Correlation made with CT head 08/20/2025. TECHNIQUE: Multiplanar, multisequence MRI of the brain was obtained before and after the intravenous administration of 8.5 mL Gadavist. Examination performed on a 1.5 Izabel high-field unit. FINDINGS: There is motion degradation on numerous pulsing sequences, limiting sensitivity of the exam. There is no diffusion restriction. There is no intracranial hemorrhage, acute infarction, mass effect, or edema. Ventricles, sulci, and cisterns are normal in size and configuration for patient age. No shift of midline. No abnormal hemosiderin deposition is identified. There are numerous tiny scattered punctate foci of white matter T2 hyperintensity in the periventricular, subcortical, and hemispheric deep white matter. These foci are nonspecific but statistically relate to small vessel ischemic changes. After the administration of contrast, there is an enhancing developmental venous anomaly in the left frontal lobe (series 21, image 13). There is otherwise no abnormal intra or extra-axial contrast enhancement. Midline structures appear normally formed. The pituitary gland appears normal. Posterior fossa structures appear normal. Cerebellar tonsils are appropriately located. Major flow voids are preserved within the skull base. The globes and orbital contents demonstrate no abnormalities. Paranasal sinuses demonstrate moderate fluid opacification throughout the ethmoid sinuses, extending into the frontal recesses, with small air-fluid levels in the bilateral maxillary sinuses. The sphenoid sinuses are well pneumatized. The mastoids and tympanic cavities are normally aerated. Extracranial soft tissues demonstrate no abnormalities. No suspicious bone marrow changes are evident. Atlantoaxial joint is normal. MR/MR head/brain wo/w con IMPRESSION: 1. No evidence of intracranial hemorrhage, acute infarction, mass effect, or edema. There is no pathological contrast enhancement. 2. There are mild white matter changes of small vessel ischemia. 3. There is moderate paranasal sinus disease involving the ethmoid, frontal, and bilateral maxillary sinuses. Electronically signed by: Seth Zacarias MD 08/21/2025 03:58 PM [facility]
--- NOTE | ~2025-08-20 | XR_ITS ---
EXAMINATION: XR CHEST CLINICAL INFORMATION: Withdrawal seizure, R/O aspiration pneumonia COMPARISON: Chest x-ray 03/27/2025 TECHNIQUE: Frontal view of the chest was obtained. FINDINGS: No significant abnormality is noted involving the heart, lungs, mediastinum, bony thorax or soft tissues. XR/XR chest 1V IMPRESSION: Unremarkable chest examination. Electronically signed by: Gavino Marie MD 08/21/2025 08:15 AM [facility] [place]
--- NOTE | 2025-08-20 15:45 | PC.NURSE ---
janelle s/p possible new onset witnessed seizure and AMS. per patient's ex-, pt has a hx of etoh where he drinks an unknown amount of alcohol daily for years and years. ex- states she offered a ride home to patient and when he got in the car, he was seemingly altered, not answering questions/following commands appropriately. pt then noticed to have seizure like activity. becoming extremely rigid/stiff/eyes rolling to the back of his head/foam coming out of his mouth. no previous seizure hx. no trauma noted during event. ex- also notes that pt has been vomiting blood x 3 days. upon ED arrival - pt remains disoriented. not answering questions/following commands appropriately. pt unable to state year or where he is. otherwise, neuros intact. pt hypertensive and tachycardic. 18gIV in the left AC via EMS - patent/intact. ekg obtained by tech. labs obtained/sent to lab. 2:1 assist OOB d/t unsteady gait. urine specimen obtained/sent to lab. seizure precautions placed for suspected new seizure. CIWA in worklist. pt otherwise on RA w/o difficulty - no sob/wob noted. respirations even/unlabored. provider notified/aware of all results. family bedside for support. plan of care ongoing. call lozano placed within reach.
[2025-08-20 15:46] LABS: Glucose, Whole Blood 279 mg/dL (60-115)
[2025-08-20 15:47] LABS: MANUAL DIFF FLAG NO
[2025-08-20 15:49] LABS: Hematocrit 41.0 % (42.0-52.0); Hemoglobin 14.2 g/dl (14.0-18.0); Imm Gran Abs Auto 0.02 X10*3/uL (0.00-0.03); Imm Gran Pct Auto 0.3 % (0.0-0.4); Lymphocytes Absolute Auto 2.0 X10*3/uL (1.2-4.9); Mean Corpuscular HGB Conc 34.6 g/dl (31.0-36.0); Mean Corpuscular Hemoglobin 26.9 pg (27.0-33.0); Mean Corpuscular Volume 77.7 fL (80.0-98.0); NRBC Abs Auto 0.000 X10*3/uL (0.0-0.012); NRBC Pct Auto 0.0 /100WBC (0.0-0.2); Platelet Count 108 X10*3/uL (160-400); Red Blood Count 5.28 X10*6/uL (4.60-5.80); White Blood Count 5.8 X10*3/uL (4.8-10.8)
[2025-08-20 15:51] LABS: Appearance Urine Clear; Glucose Urine UA >=1000 mg/dL (Negative); PH 7.5 (5.0-9.0); Specific Gravity - Urine >= 1.030 (1.005-1.025); UMIC TRIGGER UACC YES
[2025-08-20 16:09] LABS: Alanine Aminotransferase 94 U/L (0-40); Albumin Level 4.9 g/dL (3.5-5.0); Alkaline Phosphatase 64 U/L (39-117); Anion Gap 24 (12-20); Aspartate Amino Transferase 180 U/L (5-37); Blood Urea Nitrogen 16 mg/dL (9-16); Calcium 9.7 mg/dL (8.4-10.2); Carbon Dioxide 19 mmol/L (22-29); Chloride 98 mmol/L (96-108); Creatinine Clr Calc Pharmacy 98.4; Estimated Glomerular Filt Rate > 60; Magnesium 1.5 mg/dL (1.6-2.6); Potassium 3.3 mmol/L (3.3-5.1); Sodium 138 mmol/L (135-145); Total Protein 7.7 g/dL (6.5-8.0)
[2025-08-20 16:30] LABS: OBS Int Ctl Valid YES; OBS1 NEGATIVE (NEGATIVE)
--- NOTE | 2025-08-20 16:30 | ED.AMS ---
HPI - Altered Mental Status General Chief Complaint: Altered Mental Status Stated Complaint: AMS,SZ LIKE ACTIVITY PER EMS Time Seen by Provider: 08/20/25 16:07 Source: patient, family ( ex-), EMS and old records reviewed Mode of arrival: EMS Limitations: no limitations History of Present Illness ED Provider: DR. Duckworth HPI narrative: 55-year-old male presented to the emergency department via ambulance for evaluation of possible a new onset seizure witnessed by his ex-. Patient with history of alcohol dependence syndrome drinks every day last drink was last night, witnessed by his ex- to have a period of rigidity with stiffness and eye rolling up with drooling from the mouth followed by about 30-45 minutes period of confusion, patient is not known to have history of seizure or taking any medicine for seizure, but likely 1st time seizure from alcohol withdrawal, patient also admitted to vomiting 3 days ago of bright red blood, no rectal bleeding normal, stool as per patient. Complaining of headache, slightly disoriented, no CP, no SOB, complained of left-sided abdominal pain. No fever, no chills, no coughing, no dysuria, no frequency urination. Related Data Home Medications ?Medication ?Instructions ?Recorded ?Confirmed aspirin 81 mg chewable tablet 1 tab PO DAILY 03/04/24 03/04/24 insulin glargine 100 unit/mL (3 15 unit subcut BEDTIME 03/04/24 03/04/24 mL) subcutaneous pen (Lantus Solostar U-100 Insulin) lisinopril 20 mg tablet 20 mg PO DAILY 03/04/24 03/04/24 metformin 1,000 mg tablet 1,000 mg PO BID 03/04/24 03/04/24 rosuvastatin 40 mg tablet 40 mg PO BEDTIME 03/04/24 03/04/24 sertraline 100 mg tablet 100 mg PO DAILY 03/04/24 03/04/24 thiamine HCl (vitamin B1) 100 mg 100 mg PO DAILY 03/04/24 03/04/24 tablet Previous Rx's ?Medication ?Instructions ?Recorded glucagon 1 mg solution for 1 mg subcut Q20M PRN hypoglycemia 11/14/22 injection (Glucagon Emergency Kit) #1 ea amlodipine 5 mg tablet 5 mg PO DAILY #30 tabs 06/21/24 aspirin 81 mg tablet,delayed 81 mg PO DAILY #30 tabs 06/21/24 release insulin glargine 100 unit/mL (3 10 unit (0.1 mL) subcut QPM #15 mL 06/21/24 mL) subcutaneous pen (Lantus Solostar U-100 Insulin) insulin lispro 100 unit/mL 5 unit (0.05 mL) subcut TID #15 mL 06/21/24 subcutaneous pen (Admelog SoloStar U-100 Insulin lispro) lisinopril 40 mg tablet 40 mg PO DAILY #30 tabs 06/21/24 metformin 1,000 mg tablet 1,000 mg PO BID #60 tabs 06/21/24 rosuvastatin 40 mg tablet 40 mg PO DAILY #30 tabs 06/21/24 sertraline 100 mg tablet 100 mg PO DAILY #30 tabs 06/21/24 thiamine HCl (vitamin B1) 100 mg 100 mg PO BID #60 tabs 06/21/24 tablet Allergies Allergy/AdvReac Type Severity Reaction Status Date / Time Penicillins (PENICILLINS) Allergy Mild RASH Verified 08/20/25 15:29 sildenafil (Viagra) AdvReac Unknown flush, Verified 08/20/25 15:29 headaches PENICILLIN Allergy Unknown rash Uncoded 08/20/25 15:29 Review of Systems Review of Systems: All other systems are reviewed and are negative Constitutional: Reports as per HPI and Reports no additional constitutional complaints Eyes: Reports as per HPI and Reports no additional eye complaints Reports system reviewed and no additional complaints, except as documented Cardiovascular: Reports as per HPI and Reports no additional cardiovascular complaints Respiratory: Reports as per HPI and Reports no additional respiratory complaints Gastrointestinal: Reports as per HPI and Reports no additional gastrointestinal complaints Genitourinary: Reports no additional female genitourinary complaints Musculoskeletal: Reports no additional musculoskeletal complaints Skin/Breast: Reports system reviewed and no additional complaints, except as docu Psychiatric: Reports no additional psychiatric complaints Endocrine: Reports no additional endocrine complaints Hematologic/Lymphatic: Reports no additional hematologic/lymphatic complaints Allergic/Immunologic: Reports no additional allergic/immunologic complaints Reports system reviewed and no additional complaints, except as documented and Reports Abnormal speech present PMFSH Past Medical History Medical History Type 2 diabetes mellitus Social History Social History Alcohol intake: current Alcohol intake frequency: 3 or more drinks per day Alcohol type: hard liquor Substance Use Type: Crack/Cocaine Advance Directives: No Advance Directives Information Provided: No Do you have a plan to hurt others: No Plan Physical Exam ED Vital Signs: Vital Signs - 24 hr 08/20/25 15:24 08/20/25 15:34 08/20/25 17:50 Temperature 98.2 F 99 F 98.9 F Pulse Rate 110 H 110 H 95 Respiratory Rate 14 19 15 Blood Pressure 184/106 H 198/109 H 187/94 H Pulse Oximetry 94 95 95 Oxygen Delivery Method Room Air Room Air Room Air BMI result Body Mass Index 27.4 Vital signs have been reviewed and appear to be correct. Blood pressure elevated. Heart rate normal. Respiratory rate normal. Temperature normal. Oxygen saturation normal. Appearance: Alert. Oriented X3. No acute distress. Head: Normal external exam. Normocephalic. Atraumatic. No Terry signs noted. No raccoon eyes noted Eyes: PERRLA. EOMI. Conjunctiva and sclera normal. Eyelids normal. ENT: TM's Normal. Pharynx normal. Uvula midline. Moist mucous membranes. No trismus noted. No drooling noted. No muffled voice noted. Neck: Normal inspection. Neck supple. FROM. No adenopathy. Thyroid Normal. No meningeal signs. No neck mass noted. CVS: Normal heart rate and rhythm. Heart sound normal. No murmurs noted. Pulses normal throughout. Respiratory: No respiratory distress. Painless inspiration. Breath sounds normal. No wheezes/rales/rhonchi noted. Chest nontender. No accessory muscle usage noted or decreased air movement noted. Abdomen: Soft and nontender. Bowel sounds normal in all 4 quadrants. No distention noted. No organomegaly noted. No visible injury noted. Back: No CVA tenderness. Full range of motion noted. Skin: Skin warm and dry. Normal skin color. Normal skin turgor. No rashes/lesions/lacerations noted. Extremities: No lower extremity edema. Extremities exhibit normal range of motion. Extremities nontender. Neuro: Mental status: Normal attention, orientation, memory, and affect. Cranial nerves: Pupils are equal, round and reactive to light, EOMI, visual brito are fall, face is symmetric, facial sensations are normal. Motor examination normal muscle tone, strength to 4 extremities. DTR are +2, planter's are flexor. Sensory exam; normal coordination, no ataxia, gait stable. Cerebellar exam: [id number] and [id number] is normal. Extrapyramidal system: No tremors, no rigidity with normal facial expressions. Pronator drift not present Course Reevaluation(s) Reevaluation #1: history, presentation, presence of low bicarb and high lactic acid all suggestive of seizure which is likely secondary to withdrawing from alcohol. Head CT is unremarkable, abdominal CT is unremarkable for acute intervention. Will start the patient on phenobarb protocol to prophylax from withdrawal seizure admit to the medical service. Time: 18:13 Medications Administered Discontinued Medications Generic Name Dose Route Start Last Admin Trade Name Freq PRN Reason Stop Dose Admin Al Hydroxide/Mg Hydroxide 30 ml 08/20/25 16:22 08/20/25 16:43 Magnesium Hydrox/Alum Hydrox 30 Ml Oral.Susp PO 08/20/25 16:23 30 ml ONCE ONE Administration Sodium Chloride 1,000 mls @ 999 mls/hr 08/20/25 16:29 08/20/25 16:44 Ns IV 08/20/25 17:29 999 mls/hr .Q1H1M ONE Administration Ceftriaxone Sodium 1 gm/ 50 mls @ 100 mls/hr 08/20/25 16:29 08/20/25 18:04 Sodium Chloride IV 08/20/25 16:58 100 mls/hr ONCE ONE Administration Iohexol 100 ml 08/20/25 17:15 08/20/25 17:15 Iohexol 350 Mg/Ml 100 Ml Infus..Btl IV 08/20/25 17:16 85 ml ONCE ONE Administration Pantoprazole Sodium 40 mg 08/20/25 16:22 08/20/25 16:43 Pantoprazole Sodium 40 Mg/10 Ml Vial IVPUSH 08/20/25 16:23 40 mg ONCE ONE Administration Phenobarbital Sodium 274 mg 08/20/25 17:00 08/20/25 16:43 Phenobarbital Sodium 130 Mg/Ml Im Once IM 08/20/25 17:01 274 mg ONCE ONE Administration Sucralfate 1 gm 08/20/25 16:22 08/20/25 16:43 Sucralfate Oral Suspension 1 Gm/10 Ml Oral.Susp PO 08/20/25 16:23 1 gm ONCE ONE Administration Medical Decision Making Differential Diagnosis Differential Diagnoses: The differential diagnosis associated with the presentation includes ( Alcohol withdrawal seizure, electrolyte derangement, severe anemia, intracranial bleed, GI bleed.) Admission/Observation Consideration of admission/observation: Escalation of care including admission/observation considered Consult Healthcare Provider Management of the patient was discussed with: Hospitalist ( Dr. Lopez) Lab Data MDM Lab Attestation statement: I reviewed the patient's lab results. 08/20/25 15:41 08/20/25 15:41 Labs: Lab Results 08/20/25 08/20/25 08/20/25 Range/Units 15:37 15:41 16:23 WBC 5.8 (4.8-10.8) X10*3/uL RBC 5.28 (4.60-5.80) X10*6/uL Hgb 14.2 (14.0-18.0) g/dl Hct 41.0 L (42.0-52.0) % MCV 77.7 L (80.0-98.0) fL MCH 26.9 L (27.0-33.0) pg MCHC 34.6 (31.0-36.0) g/dl RDW 13.7 (11.0-16.0) % Plt Count 108 L D (160-400) X10*3/uL MPV 8.9 L (9.4-12.4) fL Immature Gran % (Auto) 0.3 (0.0-0.4) % Neut % (Auto) 53.0 (45-73) % Lymph % (Auto) 33.8 (20-40) % [place] % (Auto) 10.3 (2-11) % Eos % (Auto) 1.9 (0-4) % Baso % (Auto) 0.7 (0-2) % Lymph # (Auto) 2.0 (1.2-4.9) X10*3/uL [place] # (Auto) 0.6 (0.1-1.2) X10*3/uL Eos # (Auto) 0.1 (0.0-0.4) X10*3/uL Baso # (Auto) 0.0 (0.0-0.2) X10*3/uL Abs Immat Gran (auto) 0.02 (0.00-0.03) X10*3/uL Absolute Neuts (auto) 3.1 (2.0-8.3) x10*3/uL Absolute Nucleated RBC 0.000 (0.0-0.012) X10*3/uL Nucleated RBC % (auto) 0.0 (0.0-0.2) /100WBC Sodium 138 (135-145) mmol/L Potassium 3.3 (3.3-5.1) mmol/L Chloride 98 (96-108) mmol/L Carbon Dioxide 19 L (22-29) mmol/L Anion Gap 24 H (12-20) BUN 16 (9-16) mg/dL Creatinine 0.83 (0.5-1.4) mg/dL Estim Creat Clear Calc 98.4 Estimated GFR > 60 POC Glucose 279 H (60-115) mg/dL Random Glucose 268 H (60-115) mg/dL Lactic Acid 10.6 H* (0.5-2.0) mmol/L Calcium 9.7 D (8.4-10.2) mg/dL Magnesium 1.5 L (1.6-2.6) mg/dL Total Bilirubin 0.5 (0.0-1.0) mg/dL Direct Bilirubin 0.2 (0.0-0.5) mg/dL AST 180 H (5-37) U/L ALT 94 H (0-40) U/L Alkaline Phosphatase 64 (39-117) U/L Total Protein 7.7 (6.5-8.0) g/dL Albumin 4.9 (3.5-5.0) g/dL Lipase 28 (8-78) U/L Urine Color Yellow Urine Appearance Clear Urine pH 7.5 (5.0-9.0) Ur Specific [place] >= 1.030 H (1.005-1.025) Urine Protein 300 (3+) H (Neg-Trace) mg/dL Urine Glucose (UA) >=1000 H (Negative) mg/dL Urine Ketones Trace (Negative) mg/dL Urine Blood Moderate (2+) H (Negative) Urine Nitrite Negative (Negative) Ur Leukocyte Esterase Negative (Negative) Urine RBC >20 H (0-2) /HPF Urine WBC 0-5 (0-5) /HPF Ur Squamous Epith Cells 3-5 (0-2) /HPF Urine Bacteria None Seen (None Seen) Hyaline Casts 0-2 (0-2) /LPF Stool Occult Blood NEGATIVE (NEGATIVE) Ethyl Alcohol < 10 mg/dL 08/20/25 Range/Units 17:40 WBC (4.8-10.8) X10*3/uL RBC (4.60-5.80) X10*6/uL Hgb (14.0-18.0) g/dl Hct (42.0-52.0) % MCV (80.0-98.0) fL MCH (27.0-33.0) pg MCHC (31.0-36.0) g/dl RDW (11.0-16.0) % Plt Count (160-400) X10*3/uL MPV (9.4-12.4) fL Immature Gran % (Auto) (0.0-0.4) % Neut % (Auto) (45-73) % Lymph % (Auto) (20-40) % [place] % (Auto) (2-11) % Eos % (Auto) (0-4) % Baso % (Auto) (0-2) % Lymph # (Auto) (1.2-4.9) X10*3/uL [place] # (Auto) (0.1-1.2) X10*3/uL Eos # (Auto) (0.0-0.4) X10*3/uL Baso # (Auto) (0.0-0.2) X10*3/uL Abs Immat Gran (auto) (0.00-0.03) X10*3/uL Absolute Neuts (auto) (2.0-8.3) x10*3/uL Absolute Nucleated RBC (0.0-0.012) X10*3/uL Nucleated RBC % (auto) (0.0-0.2) /100WBC Sodium (135-145) mmol/L Potassium (3.3-5.1) mmol/L Chloride (96-108) mmol/L Carbon Dioxide (22-29) mmol/L Anion Gap (12-20) BUN (9-16) mg/dL Creatinine (0.5-1.4) mg/dL Estim Creat Clear Calc Estimated GFR POC Glucose (60-115) mg/dL Random Glucose (60-115) mg/dL Lactic Acid 2.2 H* (0.5-2.0) mmol/L Calcium (8.4-10.2) mg/dL Magnesium (1.6-2.6) mg/dL Total Bilirubin (0.0-1.0) mg/dL Direct Bilirubin (0.0-0.5) mg/dL AST (5-37) U/L ALT (0-40) U/L Alkaline Phosphatase (39-117) U/L Total Protein (6.5-8.0) g/dL Albumin (3.5-5.0) g/dL Lipase (8-78) U/L Urine Color Urine Appearance Urine pH (5.0-9.0) Ur Specific [place] (1.005-1.025) Urine Protein (Neg-Trace) mg/dL Urine Glucose (UA) (Negative) mg/dL Urine Ketones (Negative) mg/dL Urine Blood (Negative) Urine Nitrite (Negative) Ur Leukocyte Esterase (Negative) Urine RBC (0-2) /HPF Urine WBC (0-5) /HPF Ur Squamous Epith Cells (0-2) /HPF Urine Bacteria (None Seen) Hyaline Casts (0-2) /LPF Stool Occult Blood (NEGATIVE) Ethyl Alcohol mg/dL Independent Interpretation I performed an independent interpretation of an: Plain X-Ray ( Chest: No acute intrathoracic pathology) and CT Scan ( head/ abdomen and pelvis: No acute pathology.) Radiology Impression Discussion of test interpretation with radiology: I have reviewed the radiologist's reading. Chronic Conditions Patient?s care impacted by: Other ( alcohol use disorder.) Discharge Plan Discharge Clinical Impression: Altered mental status, Alcohol withdrawal seizure Patient Disposition: Admitted As Inpatient Print Language: [place]
[2025-08-20] MEDS: Magnesium Hydrox/Alum Hydrox 30 ML ORAL.SUSP PO (16:43)
[2025-08-20] MEDS: Sucralfate Oral Suspension 1 GM/10 ML ORAL.SUSP PO (16:43)
[2025-08-20] MEDS: PHENobarbitaL sodium 130 MG/ML IM ONCE 274 MG IM (16:43)
--- NOTE | 2025-08-20 16:45 | PC.NURSE ---
medication/IVF administered per provider order. seizure precautions remain in place. respirations even/unlabored. plan of care ongoing.
[2025-08-20 16:47] LABS: Lipase 28 U/L (8-78)
--- NOTE | 2025-08-20 17:06 | PC.NURSE ---
pt to CT at this time. will obtain lab work/administer abx per provider order when pt returns.
[2025-08-20] MEDS: iohexoL 350 MG/ML 100 ML INFUS..BTL IV (17:15)
[2025-08-20 17:45] LABS: Reflex Lactate? Lactic Acid Added
--- NOTE | 2025-08-20 18:14 | PC.NURSE ---
MD notified/aware of pt remaining hypertensive. no new orders at this time.
--- NOTE | 2025-08-20 19:17 | P.HPHOSP_ITS ---
History of Present Illness Date of Service: 08/20/25 Chief Complaint: seizure 55-year-old male with a past medical history of HTN, HLD, alcohol use disorder, history of alcohol withdrawal seizures, diabetes; presented to the hospital today with a chief complaint of seizure. Patient has history of alcohol use and has been drinking alcohol every day. Last drink was the night before. Patient's noted that patient became suddenly rigid and body stiffness with eyes rolling followed by shaking; patient followed by Noted to be confused. patient denies any chest pain or palpitations. Denies any GI or symptoms. Review of all other systems is negative except mentioned above ER course: Per ER team, patient on presentation noted to be alert and oriented x3; answering questions fairly appropriately; exam was grossly nonfocal; abdominal was nontender; CT head was done which showed no acute findings; patient was started on phenobarb protocol; Initial labs showed lactate of 10. Patient was given IV fluids with improvement in lactate. Lactic acid is presumed to be secondary to the seizure episode. No signs of infection. [facility] Medical History Type 2 diabetes mellitus Social History Household Members: None Housing: Other Housing Other:: renting a room Do you presently have visiting nurse or other home services: No Alcohol intake: current Alcohol intake frequency: 3 or more drinks per day Alcohol type: hard liquor Patient Tobacco Use Status: Never used Tobacco e-Cigarette/Vaping Use: Never Used Substance Use Type: Crack/Cocaine Have you been hit, kicked, punched, or otherwise hurt by someone within the past year? If so, by whom?: No Do you feel safe in your current relationship?: No Is there a partner from a previous relationship who is making you feel unsafe now?: No Are you made to feel afraid or neglected: No Advance Directives: No Advance Directives Information Provided: No Do you have a plan to hurt others: No Plan Recently lost weight without trying: No Nutrition Risks: No Nutritional Risk Meds Allergies Allergy/AdvReac Type Severity Reaction Status Date / Time Penicillins (PENICILLINS) Allergy Mild RASH Verified 08/20/25 15:29 sildenafil (Viagra) AdvReac Unknown flush, Verified 08/20/25 15:29 headaches PENICILLIN Allergy Unknown rash Uncoded 08/20/25 15:29 Active Medications: Current Medications Pharmacy Consult (Consult Rx Etoh Phenob Im/Po) 1 each MISCELLANE ONCE PRN; Protocol PRN Reason: Consult order Phenobarbital (Phenobarbital 15 Mg Tablet) 45 mg PO BID HARMAN Stop: 08/22/25 21:01 Phenobarbital (Phenobarbital 30 Mg Tablet) 30 mg PO BID HARMAN Stop: 08/24/25 21:01 Phenobarbital (Phenobarbital 30 Mg Tablet) 30 mg PO DAILY HARMAN Stop: 08/26/25 09:01 Phenobarbital Sodium (Phenobarbital Sodium 130 Mg/Ml Vial Im Q3hx2) 200 mg IM Q3H HARMAN Stop: 08/20/25 23:01 Home Medications ?Medication ?Instructions ?Recorded ?Confirmed ?Last Taken ?Type lisinopril 20 mg tablet 20 mg PO DAILY 03/04/2408/0408/19/25 History metformin 500 mg tablet,extended 500 mg PO BID 5 08/20/25 08/19/25 History release 24 hr sertraline 50 mg tablet 50 mg PO DAILY 08/20/2508/0408/19/25 History Physical Exam 2 Vital Signs and Narrative: Vital Signs: Last Vital Signs Temp 98.9 F 08/20/25 17:50 Pulse 95 08/20/25 17:50 Resp 15 08/20/25 17:50 BP 187/94 H 08/20/25 17:50 Pulse Ox 95 08/20/25 17:50 O2 Del Method Room Air 08/20/25 17:50 BMI result Body Mass Index 27.4 Gen: Appears be in no acute distress HEENT: NCAT, Moist mucosa. Pulmonary: Vesicular breath sounds, fair air entry CVS: Normal S1-S2 Abdomen: BS+, Soft, Nontender Extremities: Warm well perfused Neuro: Alert and awake. Results Labs 08/20/25 15:41 08/20/25 15:41 Labs: Laboratory Results - last 24 hr 08/20/25 08/20/25 08/20/25 15:37 15:41 16:23 MCV 77.7 L MCH 26.9 L MCHC 34.6 RDW 13.7 Plt Count 108 L D MPV 8.9 L Immature Gran % (Auto) 0.3 Neut % (Auto) 53.0 Lymph % (Auto) 33.8 [place] % (Auto) 10.3 Eos % (Auto) 1.9 Baso % (Auto) 0.7 Lymph # (Auto) 2.0 [place] # (Auto) 0.6 Eos # (Auto) 0.1 Baso # (Auto) 0.0 Abs Immat Gran (auto) 0.02 Absolute Neuts (auto) 3.1 Absolute Nucleated RBC 0.000 Nucleated RBC % (auto) 0.0 Anion Gap 24 H Estim Creat Clear Calc 98.4 Estimated GFR > 60 POC Glucose 279 H Random Glucose 268 H Lactic Acid 10.6 H* Calcium 9.7 D Magnesium 1.5 L Total Bilirubin 0.5 Direct Bilirubin 0.2 AST 180 H ALT 94 H Alkaline Phosphatase 64 Total Protein 7.7 Albumin 4.9 Lipase 28 Urine Color Yellow Urine Appearance Clear Urine pH 7.5 Ur Specific [place] >= 1.030 H Urine Protein 300 (3+) H Urine Glucose (UA) >=1000 H Urine Ketones Trace Urine Blood Moderate (2+) H Urine Nitrite Negative Ur Leukocyte Esterase Negative Urine RBC >20 H Urine WBC 0-5 Ur Squamous Epith Cells 3-5 Urine Bacteria None Seen Hyaline Casts 0-2 Stool Occult Blood NEGATIVE Ethyl Alcohol < 10 08/20/25 17:40 MCV MCH MCHC RDW Plt Count MPV Immature Gran % (Auto) Neut % (Auto) Lymph % (Auto) [place] % (Auto) Eos % (Auto) Baso % (Auto) Lymph # (Auto) [place] # (Auto) Eos # (Auto) Baso # (Auto) Abs Immat Gran (auto) Absolute Neuts (auto) Absolute Nucleated RBC Nucleated RBC % (auto) Anion Gap Estim Creat Clear Calc Estimated GFR POC Glucose Random Glucose Lactic Acid 2.2 H* Calcium Magnesium Total Bilirubin Direct Bilirubin AST ALT Alkaline Phosphatase Total Protein Albumin Lipase Urine Color Urine Appearance Urine pH Ur Specific [place] Urine Protein Urine Glucose (UA) Urine Ketones Urine Blood Urine Nitrite Ur Leukocyte Esterase Urine RBC Urine WBC Ur Squamous Epith Cells Urine Bacteria Hyaline Casts Stool Occult Blood Ethyl Alcohol Assessment and Plan (1) Alcohol withdrawal seizure: Qualifiers: Complication of substance-induced condition: uncomplicated Qualified Code(s): F10.930 - Alcohol use, unspecified with withdrawal, uncomplicated; R56.9 - Unspecified convulsions Status: Acute Plan 55-year-old male with a past medical history of HTN, HLD, alcohol use disorder, history of alcohol withdrawal seizures, diabetes; presented to the hospital today with a chief complaint of seizure. 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 Advanced diet as tolerated seizure: Patient denies prior history of seizures Currently presumed to be likely in the setting of alcohol withdrawal Will also obtain MRI brain, EEG, Neurology consult. Seizure precautions Valium p.r.n. for seizures transaminitis: Likely in setting of Alcoholic liver disease. Patient has prior elevation in liver enzymes Currently more elevated than baseline Will obtain right upper quadrant ultrasound and acute hepatitis panel as well Diabetes: Insulin sliding scale hypertension: Resume home medications DVT prophylaxis: Lovenox Code status: Full code Quality Stroke Does the patient have a stroke diagnosis?: No VTE Prior VTE?: No VTE Risk Level:: Medical - moderate - high VTE Device Contraindication: Treatment Not Indicated VTE Drug Contraindication: N/A - Med Ordered
[2025-08-20 19:44] LABS: Reflex Lactate? Lactic Acid Added
[2025-08-20] MEDS: PHENobarbitaL sodium 130 MG/ML VIAL IM Q3Hx2 200 MG IM ×2 (20:00→23:19)
--- NOTE | 2025-08-20 20:24 | PHA.MEDREC ---
Addendum entered by Kyree Anderson PharmD 08/20/25 20:40: reviewed Original Note: Pharmacy Consult ? Medication Reconciliation Pharmacy has completed the medication reconciliation. Spoke with pt and he confirmed his medications. Pt confirmed he is only taking Aspirin 81mg once daily, Glucagon emergency kit as needed, Lisinopril 20mg once daily, Metformin 500mg BID; pt states he has always been taking this med BID and Sertraline 50mg once daily; pt states he still has some of those at home (LF 05/14 for 30 days).
[2025-08-20 20:29] LABS: ~Lactic Acid-LAB USE ONLY 1.3 mmol/L (0.5-2.0)
[2025-08-20 20:58] LABS: Glucose, Whole Blood 348 mg/dL (60-115)
[2025-08-21] MEDS: 0.9 % Sodium Chloride Flush 3 ML SYRINGE IVFLUSH ×4 (01:29→22:21)
[2025-08-21 03:12] VITALS: BP 165/75; PULSE 88; RESP 17; TEMP 36.2; O2SAT 97
[2025-08-21 07:11] VITALS: BP 158/84; PULSE 86; RESP 18; TEMP 36.8; O2SAT 96
[2025-08-21 07:13] LABS: MANUAL DIFF FLAG NO
[2025-08-21 07:27] LABS: Hematocrit 41.8 % (42.0-52.0); Hemoglobin 14.6 g/dl (14.0-18.0); Imm Gran Abs Auto 0.02 X10*3/uL (0.00-0.03); Imm Gran Pct Auto 0.3 % (0.0-0.4); Lymphocytes Absolute Auto 0.8 X10*3/uL (1.2-4.9); Mean Corpuscular HGB Conc 34.9 g/dl (31.0-36.0); Mean Corpuscular Hemoglobin 26.4 pg (27.0-33.0); Mean Corpuscular Volume 75.7 fL (80.0-98.0); NRBC Abs Auto 0.000 X10*3/uL (0.0-0.012); NRBC Pct Auto 0.0 /100WBC (0.0-0.2); Platelet Count 102 X10*3/uL (160-400); Red Blood Count 5.52 X10*6/uL (4.60-5.80); White Blood Count 6.7 X10*3/uL (4.8-10.8)
[2025-08-21 07:28] LABS: Glucose, Whole Blood 209 mg/dL (60-115)
[2025-08-21 07:41] LABS: Alanine Aminotransferase 85 U/L (0-40); Albumin Level 4.7 g/dL (3.5-5.0); Alkaline Phosphatase 61 U/L (39-117); Anion Gap 18 (12-20); Aspartate Amino Transferase 143 U/L (5-37); Blood Urea Nitrogen 12 mg/dL (9-16); Calcium 9.0 mg/dL (8.4-10.2); Carbon Dioxide 23 mmol/L (22-29); Chloride 95 mmol/L (96-108); Creatinine Clr Calc Pharmacy 125.6; Estimated Glomerular Filt Rate > 60; Potassium 3.6 mmol/L (3.3-5.1); Sodium 132 mmol/L (135-145); Total Protein 7.5 g/dL (6.5-8.0)
--- NOTE | 2025-08-21 08:23 | MHC.CM.PN ---
CM met with Patient at bedside. Patient lives in a house with his , who will transport at dc. Patient has a new PCP at [facility]. Home self care is Patient's goal and CM has initiated and will follow for dc planning.
[2025-08-21 08:43] LABS: Magnesium 1.6 mg/dL (1.6-2.6)
[2025-08-21 11:33] VITALS: BP 160/82; PULSE 98; RESP 18; TEMP 36.6; O2SAT 97
--- NOTE | 2025-08-21 12:01 | P.CNNE_ITS ---
History of Present Illness Data of Consult Service Date: 08/21/25 Primary Care Provider: Unknown Physician MIGUEL ANGEL Brice is a 55-year-old male patient with a past medical history of hyperlipidemia, hyperintensity, alcohol use disorder, and diabetes presenting to the hospital for a seizure. He has been drinking daily for quite some time and his last drink was the night before presenting to the hospital. His noted that he became suddenly rigid and eyes rolling back following some generalized shaking. His workup included a CT of the head which was nonacute. He was started on phenobarbital protocol and given IV fluids to correct his lactic acidosis which was likely secondary to his seizure activity. An MRI of the brain and EEG were ordered and are still pending at this time. Brice tells me today that he has a longstanding history of alcohol use though in the past has been successfully sober. He has stopped alcohol in the past without any seizure complications. He generally drinks 5 naps and 1 beer each day and only drinks in the evening hours. He denies drinking in the morning. His seizure took place around 2 in the afternoon and his last drink has been the night before. He denies any other illnesses, injuries, significant sleep deprivation, increased stress or other factors that may have triggered his seizure event. He denies any family history of seizures and did not have any illnesses in childhood, developmental delays, or premature that might put him at high risk for seizure. Review of Systems 2 Review of Systems: Yes all other systems are reviewed and are negative [facility] Past Medical History Medical History Type 2 diabetes mellitus Social History Social History Household Members: None Housing: Other Housing Other:: renting a room Do you presently have visiting nurse or other home services: No Alcohol intake: current Alcohol intake frequency: 3 or more drinks per day Alcohol type: hard liquor Patient Tobacco Use Status: Never used Tobacco e-Cigarette/Vaping Use: Never Used Substance Use Type: Crack/Cocaine Have you been hit, kicked, punched, or otherwise hurt by someone within the past year? If so, by whom?: No Do you feel safe in your current relationship?: No Is there a partner from a previous relationship who is making you feel unsafe now?: No Are you made to feel afraid or neglected: No Advance Directives: No Advance Directives Information Provided: No Do you have a plan to hurt others: No Plan Recently lost weight without trying: No Nutrition Risks: No Nutritional Risk service: No Meds Allergies Allergy/AdvReac Type Severity Reaction Status Date / Time Penicillins (PENICILLINS) Allergy Mild RASH Verified 08/20/25 15:29 sildenafil (Viagra) AdvReac Unknown flush, Verified 08/20/25 15:29 headaches PENICILLIN Allergy Unknown rash Uncoded 08/20/25 15:29 Active Medications: Current Medications Acetaminophen (Acetaminophen 325 Mg Tablet) 650 mg PO Q6H PRN PRN Reason: Pain, Mild 1-3,fever,headache Last Admin: 08/20/25 20:49 Dose: 650 mg Amlodipine Besylate (Amlodipine Besylate 10 Mg Tablet) 10 mg PO DAILY COUNT INCLUDES THE [facility]; Protocol Last Admin: 08/21/25 08:06 Dose: 10 mg Calcium Carbonate (Calcium Carbonate 750 Mg Tab.Chew) 750 mg PO Q4H PRN PRN Reason: Heartburn Dextrose (Dextrose 50 % 25 Gm/50 Ml Syringe) 25 gm IVPUSH Q15M PRN; Protocol PRN Reason: per Hypoglycemia Standing Ord. Diazepam (Diazepam 10 Mg/2 Ml Cartridge) 5 mg IVPUSH Q4H PRN PRN Reason: Seizures Enoxaparin Sodium (Enoxaparin Sodium 40 Mg/0.4 Ml Syringe) 40 mg SUBCUT Q24H COUNT INCLUDES THE [facility] Last Admin: 08/20/25 20:00 Dose: 40 mg Glucose (Glucose Gel 15 Gm Gel..Gram.) 15 gm PO Q15M PRN; Protocol PRN Reason: per Hypoglycemia Standing Ord. Insulin Human Lispro (Insulin Lispro 100 Unit/Ml 3 Ml Vial) 0 unit SUBCUT QIDACHS COUNT INCLUDES THE [facility]; Protocol Last Admin: 08/21/25 08:06 Dose: 4 unit Magnesium Hydroxide (Milk Of Magnesia 30 Ml Oral.Susp) 30 ml PO DAILY PRN PRN Reason: Constipation Melatonin (Melatonin 3 Mg Tablet) 6 mg PO BEDTIME PRN PRN Reason: Insomnia Pantoprazole Sodium (Pantoprazole Sodium 40 Mg/10 Ml Vial) 40 mg IVPUSH DAILY@0630 COUNT INCLUDES THE [facility] Last Admin: 08/21/25 06:04 Dose: 40 mg Pharmacy Consult (Consult Rx Etoh Phenob Im/Po) 1 each MISCELLANE ONCE PRN; Protocol PRN Reason: Consult order Phenobarbital (Phenobarbital 15 Mg Tablet) 45 mg PO BID COUNT INCLUDES THE [facility] Stop: 08/22/25 21:01 Last Admin: 08/21/25 08:06 Dose: 45 mg Phenobarbital (Phenobarbital 30 Mg Tablet) 30 mg PO BID COUNT INCLUDES THE [facility] Stop: 08/24/25 21:01 Phenobarbital (Phenobarbital 30 Mg Tablet) 30 mg PO DAILY COUNT INCLUDES THE [facility] Stop: 08/26/25 09:01 Sertraline HCl (Sertraline Hcl 100 Mg Tablet) 100 mg PO DAILY COUNT INCLUDES THE [facility] Last Admin: 08/21/25 08:06 Dose: 100 mg Sodium Chloride (0.9 % Sodium Chloride Flush 3 Ml Syringe) 3 ml IVFLUSH QSHIFT COUNT INCLUDES THE [facility] Last Admin: 08/21/25 08:06 Dose: 3 ml Temazepam (Temazepam 15 Mg Capsule) 15 mg PO BEDTIME PRN PRN Reason: Insomnia Home Medications ?Medication ?Instructions ?Recorded ?Confirmed ?Last Taken ?Type lisinopril 20 mg tablet 20 mg PO DAILY 03/04/2408/0408/19/25 History metformin 500 mg tablet,extended 500 mg PO BID 5 08/20/25 08/19/25 History release 24 hr sertraline 50 mg tablet 50 mg PO DAILY 08/20/2508/0408/19/25 History Physical Exam 2 Vital Signs: Vital Signs: Last Vital Signs Temp 97.8 F 08/21/25 11:33 Pulse 98 08/21/25 11:33 Resp 18 08/21/25 11:33 BP 160/82 H 08/21/25 11:33 Pulse Ox 97 08/21/25 11:33 O2 Del Method Room Air 08/21/25 11:33 BMI result Body Mass Index 27.4 Const: General: cooperative, healthy appearing, comfortable and no acute distress Nutritional Appearance: well nourished Orientation/consciousness: patient oriented x3 Limitations: no limitations HEENT: Head: Yes normal to inspection and Yes normocephalic Eyes: General: appearance normal, both eyes and all related structures V isual Brito: normal visual brito by confrontation Alignment and Position: a lignment normal Periorbital: periorbital findings normal Eyelids: Yes eyelids normal Conjunctivae: conjunctivae normal Sclerae: sclerae normal Direct Ophthalmoscopy: normal light reflex Neck: Neck: Yes normal visual inspection and Yes full ROM : General: Yes no CVA tenderness Back/Spine/Pelvis: Back: no CVA tenderness Cervical Spine: normal cervical lordosis Thoracic/Lumbar Spine: thoracic and lumbar spine normal to inspection Neuro: General: patient oriented x3 and deep tendon reflexes 2+ bilaterally Cranial nerves: Yes CN's II-XII intact bilaterally Cognition (Neuro): normal cognition Motor exam (neuro): 5/5 motor strength present throughout and no tremor noted Sensory Exam: Normal double simultaneous stimulation for sensation Romberg Test: Negative Pupils: Normal pupillary reactivity/response: bilateral Psych: Appearance: grossly normal Mental Status: mental status grossly normal Speech and movement: Normal speech and movement present and Clear speech present Affect: normal affect Attitude: cooperative Thought process: Normal thought process present Thought content: Normal thought content present Insight: Good insight present (Psych) Judgement: Good judgement present (Psych) Results Labs 08/21/25 07:08 08/21/25 07:08 Labs: Short CBC 08/20/25 08/21/25 Range/Units 15:41 07:08 WBC 5.8 6.7 (4.8-10.8) X10*3/uL Hgb 14.2 14.6 (14.0-18.0) g/dl Hct 41.0 L 41.8 L (42.0-52.0) % Plt Count 108 L D 102 L (160-400) X10*3/uL BMP 08/20/25 08/21/25 15:41 07:08 Sodium 138 132 L Potassium 3.3 3.6 Chloride 98 95 L Carbon Dioxide 19 L 23 BUN 16 12 Creatinine 0.83 0.65 Calcium 9.7 D 9.0 D Liver Function 08/20/25 08/21/25 Range/Units 15:41 07:08 Total Bilirubin 0.5 1.1 H (0.0-1.0) mg/dL Direct Bilirubin 0.2 (0.0-0.5) mg/dL AST 180 H 143 H (5-37) U/L ALT 94 H 85 H (0-40) U/L Alkaline Phosphatase 64 61 (39-117) U/L Albumin 4.9 4.7 (3.5-5.0) g/dL Urine 08/20/25 Range/Units 15:41 Urine Color Yellow Urine Appearance Clear Urine pH 7.5 (5.0-9.0) Ur Specific [place] >= 1.030 H (1.005-1.025) Urine Protein 300 (3+) H (Neg-Trace) mg/dL Urine Glucose (UA) >=1000 H (Negative) mg/dL Assessment and Plan (1) Seizure: Status: Acute Plan Brice is a 55-year-old male patient with a past medical history of hyperlipidemia, hyperintensity, alcohol use disorder, and diabetes presenting to the hospital for a seizure. His seizure was probably related to alcohol withdrawal though timing of his seizure in relation to his typical drinking patterns does not indicate a prolonged period of time without alcohol from his baseline patterns. He denies any other triggering factors such as illness, stress, or sleep deprivation that may have played a role. He denies any medical history or developmental history that could place him at higher risk for seizure. Typically for a 1st seizure event, we will choose not to medicate with antiepileptics. However, in an individual who has alcohol use disorder, they are already at an additional risk for seizures. I think would be reasonable to consider an antiepileptic even if his EEG and MRI are normal if patient is willing. If the patient prefers, could choose to follow-up in the clinic and hold off on antiepileptics for now. If there are abnormalities on EEG or MRI, the choice would be clear to start an antiepileptic. In this case, I would recommend a trial of lamotrigine for seizure prevention given its mood stabilization beenfit. He can start at 25 mg daily for 2 weeks and then increase to 25 mg twice daily. He should follow up in the [facility] outpatient for further tapering schedule with a goal dose of 100-150mg twice daily. (Would probably avoid leveteracetam as first choice as pt does note that he still is dealing with depression in our discussion today). Pt should be counceled on driving restriction for 6 months after last known seizure event per [place] law. Procedures Date of Service Date of Service: 08/21/25
[2025-08-21 13:14] LABS: Glucose, Whole Blood 296 mg/dL (60-115)
--- NOTE | 2025-08-21 13:23 | HO.ADDICTCON ---
History of Present Illness Date of Service: 08/21/2025 Chief Complaint: seizure Reason for Consult: AUD Sources of Information: patient interviewed and chart reviewed HPI Narrative: Patient is a 55 year old Lebanese speaking male medically admitted following a seizure at home--possibly related to alcohol withdrawal. Phenobarbital protocol initiated in ED Patient seen in room 460. He is awake, alert, laying in bed watching TV He states that he normally drinks 3-4 days per week 4 -5 nips and a couple of beers . At home, he reports experiencing mild withdrawal sx --tremors mainly, when he does not drink. Denies any history of alcohol withdrawal seizure Reports one [facility] admission, followed by [facility] admission when he says he stayed for a month. Was taking naltrexone, but then ran out, and did not seek out refills. Unclear if naltrexone helped with alcohol use. Denies any other substance use. States that alcohol use increases with depressive sx. Reports father with AUD-now No providers at this time No recovery supports --open to referral to [facility] for AUD treatment follow up PCP at [facility] Reporting mild GI discomfort No tremor noted, no diaphoresis or restlessness. Labs reviewed Medical Evaluation Reviewed: Yes Review of Systems Constitutional: Reports as per HPI and Reports no additional constitutional complaints Diagnostics Vital Signs (24Hr): Vital Signs - 24 hr 08/20/25 15:24 08/20/25 15:34 08/20/25 17:50 Temperature 98.2 F 99 F 98.9 F Pulse Rate 110 H 110 H 95 Respiratory Rate 14 19 15 Blood Pressure 184/106 H 198/109 H 187/94 H Pulse Oximetry 94 95 95 Oxygen Delivery Method Room Air Room Air Room Air 08/20/25 19:58 08/20/25 20:00 08/20/25 20:47 Temperature 99.2 F Pulse Rate 94 94 Respiratory Rate 17 16 Blood Pressure 198/93 H 198/93 H 174/92 H Pulse Oximetry 96 95 Oxygen Delivery Method Room Air Room Air 08/20/25 23:28 08/21/25 03:12 08/21/25 07:11 Temperature 98.3 F 97.2 F 98.3 F Pulse Rate 94 88 86 Respiratory Rate 17 17 18 Blood Pressure 164/90 H 165/75 H 158/84 H Pulse Oximetry 94 97 96 Oxygen Delivery Method Room Air Room Air Room Air 08/21/25 11:33 Temperature 97.8 F Pulse Rate 98 Respiratory Rate 18 Blood Pressure 160/82 H Pulse Oximetry 97 Oxygen Delivery Method Room Air BMI result Body Mass Index 27.4 Labs 08/21/25 07:08 08/21/25 07:08 Labs: Laboratory Results - last 48 hr 08/20/25 08/20/25 08/20/25 15:37 15:41 16:23 WBC 5.8 RBC 5.28 Hgb 14.2 Hct 41.0 L MCV 77.7 L MCH 26.9 L MCHC 34.6 RDW 13.7 Plt Count 108 L D MPV 8.9 L Immature Gran % (Auto) 0.3 Neut % (Auto) 53.0 Lymph % (Auto) 33.8 Kay % (Auto) 10.3 Eos % (Auto) 1.9 Baso % (Auto) 0.7 Lymph # (Auto) 2.0 Kay # (Auto) 0.6 Eos # (Auto) 0.1 Baso # (Auto) 0.0 Abs Immat Gran (auto) 0.02 Absolute Neuts (auto) 3.1 Absolute Nucleated RBC 0.000 Nucleated RBC % (auto) 0.0 Sodium 138 Potassium 3.3 Chloride 98 Carbon Dioxide 19 L Anion Gap 24 H BUN 16 Creatinine 0.83 Estim Creat Clear Calc 98.4 Estimated GFR > 60 POC Glucose 279 H Random Glucose 268 H Lactic Acid 10.6 H* Lactic Acid F/U @ 2Hr Calcium 9.7 D Magnesium 1.5 L Total Bilirubin 0.5 Direct Bilirubin 0.2 AST 180 H ALT 94 H Alkaline Phosphatase 64 Total Protein 7.7 Albumin 4.9 Lipase 28 Urine Color Yellow Urine Appearance Clear Urine pH 7.5 Ur Specific [place] >= 1.030 H Urine Protein 300 (3+) H Urine Glucose (UA) >=1000 H Urine Ketones Trace Urine Blood Moderate (2+) H Urine Nitrite Negative Ur Leukocyte Esterase Negative Urine RBC >20 H Urine WBC 0-5 Ur Squamous Epith Cells 3-5 Urine Bacteria None Seen Hyaline Casts 0-2 Stool Occult Blood NEGATIVE Ethyl Alcohol < 10 08/20/25 08/20/25 08/20/25 17:40 20:09 20:55 WBC RBC Hgb Hct MCV MCH MCHC RDW Plt Count MPV Immature Gran % (Auto) Neut % (Auto) Lymph % (Auto) Kay % (Auto) Eos % (Auto) Baso % (Auto) Lymph # (Auto) Kay # (Auto) Eos # (Auto) Baso # (Auto) Abs Immat Gran (auto) Absolute Neuts (auto) Absolute Nucleated RBC Nucleated RBC % (auto) Sodium Potassium Chloride Carbon Dioxide Anion Gap BUN Creatinine Estim Creat Clear Calc Estimated GFR POC Glucose 348 H Random Glucose Lactic Acid 2.2 H* Lactic Acid F/U @ 2Hr 1.3 Calcium Magnesium Total Bilirubin Direct Bilirubin AST ALT Alkaline Phosphatase Total Protein Albumin Lipase Urine Color Urine Appearance Urine pH Ur Specific [place] Urine Protein Urine Glucose (UA) Urine Ketones Urine Blood Urine Nitrite Ur Leukocyte Esterase Urine RBC Urine WBC Ur Squamous Epith Cells Urine Bacteria Hyaline Casts Stool Occult Blood Ethyl Alcohol 08/21/25 08/21/25 08/21/25 07:08 07:13 13:11 WBC 6.7 RBC 5.52 Hgb 14.6 Hct 41.8 L MCV 75.7 L MCH 26.4 L MCHC 34.9 RDW 13.5 Plt Count 102 L MPV 10.0 Immature Gran % (Auto) 0.3 Neut % (Auto) 75.2 H Lymph % (Auto) 12.3 L Kay % (Auto) 11.1 H Eos % (Auto) 0.4 Baso % (Auto) 0.7 Lymph # (Auto) 0.8 L Kay # (Auto) 0.8 Eos # (Auto) 0.0 Baso # (Auto) 0.1 Abs Immat Gran (auto) 0.02 Absolute Neuts (auto) 5.1 Absolute Nucleated RBC 0.000 Nucleated RBC % (auto) 0.0 Sodium 132 L Potassium 3.6 Chloride 95 L Carbon Dioxide 23 Anion Gap 18 BUN 12 Creatinine 0.65 Estim Creat Clear Calc 125.6 Estimated GFR > 60 POC Glucose 209 H 296 H Random Glucose 200 H Lactic Acid Lactic Acid F/U @ 2Hr Calcium 9.0 D Magnesium 1.6 Total Bilirubin 1.1 H Direct Bilirubin AST 143 H ALT 85 H Alkaline Phosphatase 61 Total Protein 7.5 Albumin 4.7 Lipase Urine Color Urine Appearance Urine pH Ur Specific [place] Urine Protein Urine Glucose (UA) Urine Ketones Urine Blood Urine Nitrite Ur Leukocyte Esterase Urine RBC Urine WBC Ur Squamous Epith Cells Urine Bacteria Hyaline Casts Stool Occult Blood Ethyl Alcohol Imaging Radiology Impressions: ITS Impressions Chest X-Ray 08/20/25 18:01 IMPRESSION: Unremarkable chest examination. Electronically signed by: Gavino Marie MD 08/21/2025 08:15 AM [facility] Mental Status Exam Mental Status Exam Level of Consciousness: Awake, Appropriate and Alert Patient Behavior: Appropriate and Cooperative Affect Description: Blunted Speech Pattern: Clear Hallucinations: None Thought Process: Intact Thought Content: positive for [place] Judgement: Fair Medications Medications Current Medications Acetaminophen (Acetaminophen 325 Mg Tablet) 650 mg PO Q6H PRN PRN Reason: Pain, Mild 1-3,fever,headache Last Admin: 08/20/25 20:49 Dose: 650 mg Amlodipine Besylate (Amlodipine Besylate 10 Mg Tablet) 10 mg PO DAILY [facility]; Protocol Last Admin: 08/21/25 08:06 Dose: 10 mg Calcium Carbonate (Calcium Carbonate 750 Mg Tab.Chew) 750 mg PO Q4H PRN PRN Reason: Heartburn Dextrose (Dextrose 50 % 25 Gm/50 Ml Syringe) 25 gm IVPUSH Q15M PRN; Protocol PRN Reason: per Hypoglycemia Standing Ord. Diazepam (Diazepam 10 Mg/2 Ml Cartridge) 5 mg IVPUSH Q4H PRN PRN Reason: Seizures Enoxaparin Sodium (Enoxaparin Sodium 40 Mg/0.4 Ml Syringe) 40 mg SUBCUT Q24H [facility] Last Admin: 08/20/25 20:00 Dose: 40 mg Glucose (Glucose Gel 15 Gm Gel..Gram.) 15 gm PO Q15M PRN; Protocol PRN Reason: per Hypoglycemia Standing Ord. Insulin Human Lispro (Insulin Lispro 100 Unit/Ml 3 Ml Vial) 0 unit SUBCUT QIDACHS [facility]; Protocol Last Admin: 08/21/25 13:15 Dose: 6 unit Magnesium Hydroxide (Milk Of Magnesia 30 Ml Oral.Susp) 30 ml PO DAILY PRN PRN Reason: Constipation Melatonin (Melatonin 3 Mg Tablet) 6 mg PO BEDTIME PRN PRN Reason: Insomnia Pantoprazole Sodium (Pantoprazole Sodium 40 Mg/10 Ml Vial) 40 mg IVPUSH DAILY@0630 [facility] Last Admin: 08/21/25 06:04 Dose: 40 mg Pharmacy Consult (Consult Rx Etoh Phenob Im/Po) 1 each MISCELLANE ONCE PRN; Protocol PRN Reason: Consult order Phenobarbital (Phenobarbital 15 Mg Tablet) 45 mg PO BID [facility] Stop: 08/22/25 21:01 Last Admin: 08/21/25 08:06 Dose: 45 mg Phenobarbital (Phenobarbital 30 Mg Tablet) 30 mg PO BID [facility] Stop: 08/24/25 21:01 Phenobarbital (Phenobarbital 30 Mg Tablet) 30 mg PO DAILY [facility] Stop: 08/26/25 09:01 Sertraline HCl (Sertraline Hcl 100 Mg Tablet) 100 mg PO DAILY [facility] Last Admin: 08/21/25 08:06 Dose: 100 mg Sodium Chloride (0.9 % Sodium Chloride Flush 3 Ml Syringe) 3 ml IVFLUSH QSHIFT [facility] Last Admin: 08/21/25 08:06 Dose: 3 ml Temazepam (Temazepam 15 Mg Capsule) 15 mg PO BEDTIME PRN PRN Reason: Insomnia Allergies Allergies Allergy/AdvReac Type Severity Reaction Status Date / Time Penicillins (PENICILLINS) Allergy Mild RASH Verified 08/20/25 15:29 sildenafil (Viagra) AdvReac Unknown flush, Verified 08/20/25 15:29 headaches PENICILLIN Allergy Unknown rash Uncoded 08/20/25 15:29 Assessment & Plan Assessment & Plan (1) Alcohol use disorder, severe, dependence: Status: Inactive Code(s): F10.20 - Alcohol dependence, uncomplicated Assessment and Plan: phenobarbital taper in place --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 and provided resources in Lebanese for patient to review Restart naltrexone per patient request--will need rx sent to pharmacy. Discussed thiamine and folic acid--or multivitamin continued at discharge Total time managing care of this patient today ___35_ minutes. PMFSH Past Medical History Medical History Type 2 diabetes mellitus Social History Social History Household Members: None Housing: Other Housing Other:: renting a room Do you presently have visiting nurse or other home services: No Alcohol intake: current Alcohol intake frequency: 3 or more drinks per day Alcohol type: hard liquor Patient Tobacco Use Status: Never used Tobacco e-Cigarette/Vaping Use: Never Used Substance Use Type: Crack/Cocaine service: No
--- NOTE | 2025-08-21 15:19 | HO.PM.IMPN ---
Subjective Subjective Date of Service: 08/21/25 Interval History: Pt currently feels ?okay? Denies hx of previous seizures Denies hx of previous alcohol withdrawal Denies any acute complaints at this time Review of Systems Review of Systems: Yes all other systems are reviewed and are negative Physical Exam Exam: Exam: General: AOx3, no acute distress Resp: CTA bilaterally CVS: S1, S2, RRR GI: +BS, NT, no distention Skin: Warm, dry Neuro: Cranial nerves II-XII grossly intact bilaterally. Motor grossly intact bilaterally. No focal deficits noted. No tremors Extremities: No edema Psych: Appropriate affect Vital Signs: Vital Signs: Last Vital Signs Temp 97.8 F 08/21/25 11:33 Pulse 98 08/21/25 11:33 Resp 18 08/21/25 11:33 BP 160/82 H 08/21/25 11:33 Pulse Ox 97 08/21/25 11:33 O2 Del Method Room Air 08/21/25 11:33 BMI result Body Mass Index 27.4 Objective Data Active Medications Acetaminophen (Acetaminophen 325 Mg Tablet) 650 mg PO Q6H PRN PRN Reason: Pain, Mild 1-3,fever,headache Last Admin: 08/20/25 20:49 Dose: 650 mg Documented By: DANUTA Amlodipine Besylate (Amlodipine Besylate 10 Mg Tablet) 10 mg PO DAILY [facility]; Protocol Last Admin: 08/21/25 08:06 Dose: 10 mg Documented By: PEDRO Calcium Carbonate (Calcium Carbonate 750 Mg Tab.Chew) 750 mg PO Q4H PRN PRN Reason: Heartburn Dextrose (Dextrose 50 % 25 Gm/50 Ml Syringe) 25 gm IVPUSH Q15M PRN; Protocol PRN Reason: per Hypoglycemia Standing Ord. Diazepam (Diazepam 10 Mg/2 Ml Cartridge) 5 mg IVPUSH Q4H PRN PRN Reason: Seizures Enoxaparin Sodium (Enoxaparin Sodium 40 Mg/0.4 Ml Syringe) 40 mg SUBCUT Q24H [facility] Last Admin: 08/20/25 20:00 Dose: 40 mg Documented By: EDYTA Glucose (Glucose Gel 15 Gm Gel..Gram.) 15 gm PO Q15M PRN; Protocol PRN Reason: per Hypoglycemia Standing Ord. Insulin Human Lispro (Insulin Lispro 100 Unit/Ml 3 Ml Vial) 0 unit SUBCUT QIDACHS [facility]; Protocol Last Admin: 08/21/25 13:15 Dose: 6 unit Documented By: PEDRO Magnesium Hydroxide (Milk Of Magnesia 30 Ml Oral.Susp) 30 ml PO DAILY PRN PRN Reason: Constipation Melatonin (Melatonin 3 Mg Tablet) 6 mg PO BEDTIME PRN PRN Reason: Insomnia Pantoprazole Sodium (Pantoprazole Sodium 40 Mg/10 Ml Vial) 40 mg IVPUSH DAILY@0630 [facility] Last Admin: 08/21/25 06:04 Dose: 40 mg Documented By: DANUTA Pharmacy Consult (Consult Rx Etoh Phenob Im/Po) 1 each MISCELLANE ONCE PRN; Protocol PRN Reason: Consult order Phenobarbital (Phenobarbital 15 Mg Tablet) 45 mg PO BID [facility] Stop: 08/22/25 21:01 Last Admin: 08/21/25 08:06 Dose: 45 mg Documented By: PEDRO Phenobarbital (Phenobarbital 30 Mg Tablet) 30 mg PO BID [facility] Stop: 08/24/25 21:01 Phenobarbital (Phenobarbital 30 Mg Tablet) 30 mg PO DAILY [facility] Stop: 08/26/25 09:01 Sertraline HCl (Sertraline Hcl 100 Mg Tablet) 100 mg PO DAILY [facility] Last Admin: 08/21/25 08:06 Dose: 100 mg Documented By: PEDRO Sodium Chloride (0.9 % Sodium Chloride Flush 3 Ml Syringe) 3 ml IVFLUSH QSHIFT [facility] Last Admin: 08/21/25 08:06 Dose: 3 ml Documented By: PEDRO Temazepam (Temazepam 15 Mg Capsule) 15 mg PO BEDTIME PRN PRN Reason: Insomnia Labs 08/21/25 07:08 08/21/25 07:08 Labs: Laboratory Results - last 24 hr 08/20/25 08/20/25 08/20/25 15:37 15:41 16:23 MCV 77.7 L MCH 26.9 L MCHC 34.6 RDW 13.7 Plt Count 108 L D MPV 8.9 L Immature Gran % (Auto) 0.3 Neut % (Auto) 53.0 Lymph % (Auto) 33.8 [place] % (Auto) 10.3 Eos % (Auto) 1.9 Baso % (Auto) 0.7 Lymph # (Auto) 2.0 [place] # (Auto) 0.6 Eos # (Auto) 0.1 Baso # (Auto) 0.0 Abs Immat Gran (auto) 0.02 Absolute Neuts (auto) 3.1 Absolute Nucleated RBC 0.000 Nucleated RBC % (auto) 0.0 Anion Gap 24 H Estim Creat Clear Calc 98.4 Estimated GFR > 60 POC Glucose 279 H Random Glucose 268 H Lactic Acid 10.6 H* Lactic Acid F/U @ 2Hr Calcium 9.7 D Magnesium 1.5 L Total Bilirubin 0.5 Direct Bilirubin 0.2 AST 180 H ALT 94 H Alkaline Phosphatase 64 Total Protein 7.7 Albumin 4.9 Lipase 28 Urine Color Yellow Urine Appearance Clear Urine pH 7.5 Ur Specific [place] >= 1.030 H Urine Protein 300 (3+) H Urine Glucose (UA) >=1000 H Urine Ketones Trace Urine Blood Moderate (2+) H Urine Nitrite Negative Ur Leukocyte Esterase Negative Urine RBC >20 H Urine WBC 0-5 Ur Squamous Epith Cells 3-5 Urine Bacteria None Seen Hyaline Casts 0-2 Stool Occult Blood NEGATIVE Ethyl Alcohol < 10 08/20/25 08/20/25 08/20/25 17:40 20:09 20:55 MCV MCH MCHC RDW Plt Count MPV Immature Gran % (Auto) Neut % (Auto) Lymph % (Auto) [place] % (Auto) Eos % (Auto) Baso % (Auto) Lymph # (Auto) [place] # (Auto) Eos # (Auto) Baso # (Auto) Abs Immat Gran (auto) Absolute Neuts (auto) Absolute Nucleated RBC Nucleated RBC % (auto) Anion Gap Estim Creat Clear Calc Estimated GFR POC Glucose 348 H Random Glucose Lactic Acid 2.2 H* Lactic Acid F/U @ 2Hr 1.3 Calcium Magnesium Total Bilirubin Direct Bilirubin AST ALT Alkaline Phosphatase Total Protein Albumin Lipase Urine Color Urine Appearance Urine pH Ur Specific [place] Urine Protein Urine Glucose (UA) Urine Ketones Urine Blood Urine Nitrite Ur Leukocyte Esterase Urine RBC Urine WBC Ur Squamous Epith Cells Urine Bacteria Hyaline Casts Stool Occult Blood Ethyl Alcohol 08/21/25 08/21/25 08/21/25 07:08 07:13 13:11 MCV 75.7 L MCH 26.4 L MCHC 34.9 RDW 13.5 Plt Count 102 L MPV 10.0 Immature Gran % (Auto) 0.3 Neut % (Auto) 75.2 H Lymph % (Auto) 12.3 L [place] % (Auto) 11.1 H Eos % (Auto) 0.4 Baso % (Auto) 0.7 Lymph # (Auto) 0.8 L [place] # (Auto) 0.8 Eos # (Auto) 0.0 Baso # (Auto) 0.1 Abs Immat Gran (auto) 0.02 Absolute Neuts (auto) 5.1 Absolute Nucleated RBC 0.000 Nucleated RBC % (auto) 0.0 Anion Gap 18 Estim Creat Clear Calc 125.6 Estimated GFR > 60 POC Glucose 209 H 296 H Random Glucose 200 H Lactic Acid Lactic Acid F/U @ 2Hr Calcium 9.0 D Magnesium 1.6 Total Bilirubin 1.1 H Direct Bilirubin AST 143 H ALT 85 H Alkaline Phosphatase 61 Total Protein 7.5 Albumin 4.7 Lipase Urine Color Urine Appearance Urine pH Ur Specific [place] Urine Protein Urine Glucose (UA) Urine Ketones Urine Blood Urine Nitrite Ur Leukocyte Esterase Urine RBC Urine WBC Ur Squamous Epith Cells Urine Bacteria Hyaline Casts Stool Occult Blood Ethyl Alcohol Assessment and Plan (1) Seizure-like activity: Status: Acute Plan 55-year-old male with a past medical history of HTN, HLD, alcohol use disorder, history of alcohol withdrawal seizures, diabetes; presented to the hospital today with a chief complaint of seizure. Acute metabolic encephalopathy in the setting of alcohol use disorder Concerning for alcohol withdrawal Had been drinking 4 nips +1 beer daily for some time Currently appears back to baseline without confusion CT head showed no acute findings Continue phenobarbital protocol Thiamine, folate, and multivitamins Addiction medicine consult Seizure-like activity Witnessed by family friend ?Postictal state Patient denies prior history of seizures Currently presumed to be likely in the setting of alcohol withdrawal EEG unremarkable Will also obtain MRI brain Neurology consulted, recommend starting lamotrigine 25 mg daily x2 weeks with increase to 25 mg b.i.d. after that Pt should then follow up with Neurology clinic in the outpatient for further tapering with goal dose of 100-125 mg bid Seizure precautions Valium p.r.n. for seizures Acute lactic acidosis, resovled Likely in the setting of seizure activity, not sepsis Normalized after IVF Transaminitis Likely in setting of Alcoholic liver disease. Patient has prior elevation in liver enzymes Currently more elevated than baseline Will obtain right upper quadrant ultrasound and acute hepatitis panel as well Non insulin-dependent type 2 diabetes Hold metformin Sliding-scale insulin, diabetic diet Hypertension Continue lisinopril Mood disorder Continue sertraline DVT prophylaxis: Lovenox Code status: Full code Quality Stroke Does the patient have a stroke diagnosis?: No VTE Prior VTE?: No VTE Risk Level:: Medical - moderate - high VTE Device Contraindication: Treatment Not Indicated VTE Drug Contraindication: N/A - Med Ordered
[2025-08-21 15:47] VITALS: BP 150/86; PULSE 92; RESP 18; TEMP 36.8; O2SAT 99
--- NOTE | 2025-08-21 16:10 | MHC.RECOVRN ---
Outpatient intake apt made at the [facility] for Wednesday08/27/2025 @ 14:30. Togolese translated educational materials on addiction/recovery & local recovery support options offered for pt to review and work on.
[2025-08-21 16:39] LABS: Glucose, Whole Blood 200 mg/dL (60-115)
[2025-08-21 19:55] VITALS: BP 159/94; PULSE 94; RESP 16; TEMP 37.1; O2SAT 98
[2025-08-21 20:10] LABS: Glucose, Whole Blood 253 mg/dL (60-115)
[2025-08-21 22:05] LABS: Glucose, Whole Blood 294 mg/dL (60-115)
[2025-08-21 23:40] VITALS: BP 125/71; PULSE 101; RESP 16; TEMP 36.2; O2SAT 97
[2025-08-22 03:38] VITALS: BP 139/75; PULSE 91; RESP 16; TEMP 36.4; O2SAT 98
[2025-08-22 07:30] LABS: INTERNATIONAL NORM RATIO 1.0 (0.9-1.1); Prothrombin Time 12.1 SEC (11.2-13.5)
[2025-08-22 07:32] VITALS: BP 134/78; PULSE 87; RESP 18; TEMP 36.1; O2SAT 97
[2025-08-22 07:46] LABS: Glucose, Whole Blood 223 mg/dL (60-115)
[2025-08-22] MEDS: Aspirin Enteric Coated 81 MG TABLET.DR PO (08:35)
[2025-08-22] MEDS: 0.9 % Sodium Chloride Flush 3 ML SYRINGE IVFLUSH ×2 (08:41→20:27)
[2025-08-22 08:51] LABS: Alanine Aminotransferase 79 U/L (0-40); Albumin Level 4.5 g/dL (3.5-5.0); Alkaline Phosphatase 63 U/L (39-117); Anion Gap 19 (12-20); Aspartate Amino Transferase 118 U/L (5-37); Calcium 9.4 mg/dL (8.4-10.2); Carbon Dioxide 23 mmol/L (22-29); Chloride 93 mmol/L (96-108); Potassium 3.7 mmol/L (3.3-5.1); Sodium 131 mmol/L (135-145); Total Protein 7.4 g/dL (6.5-8.0)
[2025-08-22 09:04] LABS: Blood Urea Nitrogen 18 mg/dL (9-16); Creatinine Clr Calc Pharmacy 91.7; Estimated Glomerular Filt Rate > 60
[2025-08-22 11:41] LABS: Glucose, Whole Blood 389 mg/dL (60-115)
[2025-08-22 11:51] VITALS: BP 137/65; PULSE 102; RESP 18; TEMP 36.2; O2SAT 96
--- NOTE | 2025-08-22 11:55 | MHC.RECOVRN ---
Addiction Medicine consult received for pt admitted following a seizure at home, possibly related to alcohol withdrawal. Recovery evaluation completed and to be entered. Please see for details. Pt was started on Naltrexone for AUD and has an intake appt w/ [facility] which was added to his discharge summary. Pt reports he will also like to attend AA meetings again and was provide a list of Amharic speaking meeting options. [facility] team available as needed for ongoing support.
--- NOTE | 2025-08-22 15:49 | MHC.CM.PN ---
HCP has been added to chart and uploaded into [facility].
[2025-08-22 15:51] VITALS: BP 130/70; PULSE 83; RESP 18; TEMP 36.3; O2SAT 96
[2025-08-22 16:06] LABS: Glucose, Whole Blood 266 mg/dL (60-115)
--- NOTE | 2025-08-22 17:06 | HO.PM.IMPN ---
Subjective Subjective Date of Service: 08/22/25 Interval History: Seen and evaluated during morning rounds where he reported feeling much better and ready for discharge Denied headache, nausea, or vomiting No tremors or repeat seizure activity In the early afternoon pt complained of upper lip swelling and discomfort around the nose and eyes Pt given Benadryl, prednisone, and Pepcid Review of Systems Review of Systems: Yes all other systems are reviewed and are negative Physical Exam Exam: Exam: General: AOx3, no acute distress Face: upper lip swelling, facial flushing, as pictured below Resp: CTA bilaterally CVS: S1, S2, RRR GI: +BS, NT, no distention Skin: Warm, dry Neuro: Cranial nerves II-XII grossly intact bilaterally. Motor grossly intact bilaterally. No focal deficits noted. No tremors Extremities: No edema Psych: Appropriate affect Vital Signs: Vital Signs: Last Vital Signs Temp 97.4 F 08/22/25 15:51 Pulse 83 08/22/25 15:51 Resp 18 08/22/25 15:51 BP 130/70 08/22/25 15:51 Pulse Ox 96 08/22/25 15:51 O2 Del Method Room Air 08/22/25 15:51 BMI result Body Mass Index 27.4 Objective Data Active Medications Acetaminophen (Acetaminophen 325 Mg Tablet) 650 mg PO Q6H PRN PRN Reason: Pain, Mild 1-3,fever,headache Last Admin: 08/20/25 20:49 Dose: 650 mg Documented By: DANUTA Aspirin (Aspirin Enteric Coated 81 Mg Tablet.) 81 mg PO DAILY [facility] Last Admin: 08/22/25 08:35 Dose: 81 mg Documented By: JULIETH Calcium Carbonate (Calcium Carbonate 750 Mg Tab.Chew) 750 mg PO Q4H PRN PRN Reason: Heartburn Dextrose (Dextrose 50 % 25 Gm/50 Ml Syringe) 25 gm IVPUSH Q15M PRN; Protocol PRN Reason: per Hypoglycemia Standing Ord. Diazepam (Diazepam 10 Mg/2 Ml Cartridge) 5 mg IVPUSH Q4H PRN PRN Reason: Seizures Enoxaparin Sodium (Enoxaparin Sodium 40 Mg/0.4 Ml Syringe) 40 mg SUBCUT Q24H [facility] Glucose (Glucose Gel 15 Gm Gel..Gram.) 15 gm PO Q15M PRN; Protocol PRN Reason: per Hypoglycemia Standing Ord. Insulin Human Lispro (Insulin Lispro 100 Unit/Ml 3 Ml Vial) 0 unit SUBCUT QIDACHS [facility]; Protocol Last Admin: 08/22/25 12:11 Dose: 10 unit Documented By: JULIETH Lisinopril (Lisinopril 20 Mg Tablet) 20 mg PO DAILY [facility]; Protocol Last Admin: 08/22/25 08:35 Dose: 20 mg Documented By: JULIETH Magnesium Hydroxide (Milk Of Magnesia 30 Ml Oral.Susp) 30 ml PO DAILY PRN PRN Reason: Constipation Melatonin (Melatonin 3 Mg Tablet) 6 mg PO BEDTIME PRN PRN Reason: Insomnia Naltrexone HCl (Naltrexone Hcl 50 Mg Tablet) 50 mg PO DAILY [facility] Last Admin: 08/22/25 08:40 Dose: 50 mg Documented By: JULIETH Pantoprazole Sodium (Pantoprazole Sodium 40 Mg/10 Ml Vial) 40 mg IVPUSH DAILY@0630 [facility] Last Admin: 08/22/25 06:09 Dose: 40 mg Documented By: DANUTA Pharmacy Consult (Consult Rx Etoh Phenob Im/Po) 1 each MISCELLANE ONCE PRN; Protocol PRN Reason: Consult order Phenobarbital (Phenobarbital 15 Mg Tablet) 45 mg PO BID [facility] Stop: 08/22/25 21:01 Last Admin: 08/22/25 08:35 Dose: 45 mg Documented By: JULIETH Phenobarbital (Phenobarbital 30 Mg Tablet) 30 mg PO BID [facility] Stop: 08/24/25 21:01 Phenobarbital (Phenobarbital 30 Mg Tablet) 30 mg PO DAILY [facility] Stop: 08/26/25 09:01 Sertraline HCl (Sertraline Hcl 50 Mg Tablet) 50 mg PO DAILY [facility] Last Admin: 08/22/25 08:35 Dose: 50 mg Documented By: JULIETH Sodium Chloride (0.9 % Sodium Chloride Flush 3 Ml Syringe) 3 ml IVFLUSH QSHIFT [facility] Last Admin: 08/22/25 08:41 Dose: 3 ml Documented By: JULIETH Temazepam (Temazepam 15 Mg Capsule) 15 mg PO BEDTIME PRN PRN Reason: Insomnia Labs 08/21/25 07:08 08/22/25 08:18 Labs: Laboratory Results - last 24 hr 08/21/25 08/21/25 08/22/25 20:07 21:59 06:15 Hold Purple Top SEE NOTE PT 12.1 INR 1.0 Anion Gap Estim Creat Clear Calc Estimated GFR POC Glucose 253 H 294 H Random Glucose Calcium Total Bilirubin AST ALT Alkaline Phosphatase Total Protein Albumin 08/22/25 08/22/25 08/22/25 07:36 08:18 11:35 Hold Purple Top PT INR Anion Gap 19 Estim Creat Clear Calc 91.7 Estimated GFR > 60 POC Glucose 223 H 389 H* Random Glucose 253 H Calcium 9.4 Total Bilirubin 1.2 H AST 118 H ALT 79 H Alkaline Phosphatase 63 Total Protein 7.4 Albumin 4.5 08/22/25 15:53 Hold Purple Top PT INR Anion Gap Estim Creat Clear Calc Estimated GFR POC Glucose 266 H Random Glucose Calcium Total Bilirubin AST ALT Alkaline Phosphatase Total Protein Albumin Microbiology Microbiology Results: Microbiology 08/20/25 17:40 Blood Culture - Preliminary Blood - Venous No growth after 24 hours. 08/20/25 17:40 Blood Culture - Preliminary Blood - Venous No growth after 24 hours. Assessment and Plan (1) Seizure-like activity: Status: Acute Plan 55-year-old male with a past medical history of HTN, HLD, alcohol use disorder, history of alcohol withdrawal seizures, diabetes; presented to the hospital today with a chief complaint of seizure. Acute metabolic encephalopathy in the setting of alcohol use disorder Concerning for alcohol withdrawal Had been drinking 4 nips +1 beer daily for some time Currently appears back to baseline without confusion CT head showed no acute findings Continue phenobarbital protocol Thiamine, folate, and multivitamins Addiction medicine consulted, pt has been provided with outpatient services Seizure-like activity Witnessed by family friend ?Postictal state Patient denies prior history of seizures Currently presumed to be likely in the setting of alcohol withdrawal EEG unremarkable MRI brain negative for acute abnormality Neurology consulted, no meds indicated since MRI and EEG neg; follow up with nerology outpatient Pt should not drive for until seizure free for 6 months Seizure precautions Valium p.r.n. for seizures Angioedema Pt with sudden onset upper lip swelling as well as discomfort around eyes and nose this afternoon Likely allergic reaction to medication: Unclear if lisinopril vs lamotrigine vs naltrexone; will hold these meds The pt given Benadryl 25 mg IV, prednisone 50 mg p.o., and famotidine 20 mg p.o. Pt will need outpatient allergy testing Acute lactic acidosis, resovled Likely in the setting of seizure activity, not sepsis Normalized after IVF Transaminitis Likely in setting of Alcoholic liver disease. Patient has prior elevation in liver enzymes Currently more elevated than baseline Will obtain right upper quadrant ultrasound and acute hepatitis panel as well Non insulin-dependent type 2 diabetes Hold metformin Sliding-scale insulin, diabetic diet Hypertension Continue lisinopril Mood disorder Continue sertraline DVT prophylaxis: Lovenox Code status: Full code Pt needs continued hospitalization due to monitoring for angioedema. Pt will likely be able to be discharged tomorrow morning. Quality Stroke Does the patient have a stroke diagnosis?: No VTE Prior VTE?: No VTE Risk Level:: Medical - moderate - high VTE Device Contraindication: Treatment Not Indicated VTE Drug Contraindication: N/A - Med Ordered
[2025-08-22 19:23] VITALS: BP 154/89; PULSE 87; RESP 18; TEMP 36.3; O2SAT 97
[2025-08-22 21:08] LABS: Glucose, Whole Blood 302 mg/dL (60-115)
[2025-08-22 23:42] VITALS: BP 127/86; PULSE 82; RESP 18; TEMP 36.4; O2SAT 93
[2025-08-23 03:33] VITALS: BP 142/86; PULSE 76; RESP 17; TEMP 36.7; O2SAT 96
[2025-08-23 07:20] VITALS: BP 153/94; PULSE 84; RESP 16; TEMP 36.9; O2SAT 96
[2025-08-23 07:24] LABS: Glucose, Whole Blood 289 mg/dL (60-115)
[2025-08-23] MEDS: 0.9 % Sodium Chloride Flush 3 ML SYRINGE IVFLUSH (08:14)
[2025-08-23] MEDS: Aspirin Enteric Coated 81 MG TABLET.DR PO (08:14)
[2025-08-23 11:03] VITALS: BP 134/92; PULSE 88; RESP 16; TEMP 37.2; O2SAT 96
[2025-08-23 11:08] LABS: Glucose, Whole Blood 313 mg/dL (60-115)
--- NOTE | 2025-08-23 14:17 | MHC.CM.PN ---
PT CLEARED TO DC HOME TODAY WITH NO SERVICES TO TRANSPORT
--- NOTE | 2025-08-23 14:19 | PM.DS ---
DS: Providers Provider Date of Service: 08/23/25 Date of admission: 08/20/25 19:19 Date of discharge: 08/23/25 Primary care physician: Unknown Physician Consults: 08/20/25 22:05 Addiction Medicine Provider Routine Consulting Provider: Addiction Covering Reason for consultation: ETOH dependency Has provider been notified: Yes 08/20/25 22:59 Consult to Neurology Routine Consulting Provider: [facility] Reason for consultation: seizure DS: Diagnosis Discharge Diagnosis (1) Seizure-like activity: Status: Acute DS: Summary Hospital Course Hospital Course: From admission HPI Date of Service: 08/20/25 Chief Complaint: seizure 55-year-old male with a past medical history of HTN, HLD, alcohol use disorder, history of alcohol withdrawal seizures, diabetes; presented to the hospital today with a chief complaint of seizure. Patient has history of alcohol use and has been drinking alcohol every day. Last drink was the night before. Patient's noted that patient became suddenly rigid and body stiffness with eyes rolling followed by shaking; patient followed by Noted to be confused. patient denies any chest pain or palpitations. Denies any GI or symptoms. Review of all other systems is negative except mentioned above ER course: Per ER team, patient on presentation noted to be alert and oriented x3; answering questions fairly appropriately; exam was grossly nonfocal; abdominal was nontender; CT head was done which showed no acute findings; patient was started on phenobarb protocol; Initial labs showed lactate of 10. Patient was given IV fluids with improvement in lactate. Lactic acid is presumed to be secondary to the seizure episode. No signs of infection. Hospital course Pt was admitted to the hospital after experiencing a witnessed seizure-like activities. Pt underwent MRI of head/brain as well as EEG, both of which were negative for epilepsy/seizure disorder or other acute abnormalities. Ultimately seizure thought to be in the setting of alcohol withdrawal. Pt was treated with phenobarb protocol to good effect; patient's CIWA remained low throughout most of hospital stay. Pt was seen and evaluated by Neurology who thought he did not need to be started on antiepileptic medications as this was his 1st episode of seizure activity and had negative MRI and EEG. The recommendation was to follow up with Neurology outpatient and to, according to [place] state law, abstain from driving until he is seizure-free for 6 months. Pt was also seen and evaluated by addiction medicine and was scheduled for outpatient services. Patient's hospital stay was prolonged and complicated by episode of angioedema likely secondary to medication. Causative agent, however, is unknown: pt on lisinopril, as well as had received 2 new medications within the last 24 hours: Lamotrigine and naltrexone. Pt was given Benadryl, prednisone, Pepcid, and then Solu-Medrol with resolution of symptoms by this morning. Recommendation is for pt to stop taking lisinopril, and avoid lamotrigine and naltrexone for now. For hypertension, pt was prescribed amlodipine 5 mg. He should follow up with his PCP for BP monitoring and for referral to an technical customer support specialist for testing. Pt knows to immediately return to the ED if he experiences any repeat episodes of lip or facial swelling. Pt was also strongly encouraged to abstain from alcohol use and to use whatever social, familial, and community support he can in order to maintain sobriety. For non-insulin type 2 diabetes, pt should continue metformin. Patient's A1c was 7.8 which was lower than previous, though POCs were elevated during stay and pt could practice better diabetes management. For mood disorder, continue sertraline. Pt indicates that his anxiety is still relatively poorly controlled. Attempted to start him on lamotrigine, but he may have had an allergic reaction to this. Pt should follow up with PCP for continued management of mood disorder. Time Attestation Discharge Coordination Time (in mins): 37 Quality: Safe Use of Opioids Does Pt have an Active Cancer Diagnosis on the Problem List?: No Quality: Stroke Does the patient have a stroke diagnosis?: No Physical Exam Exam: Exam: General: AOx3, no acute distress Face: No lip or facial swelling noted Resp: CTA bilaterally CVS: S1, S2, RRR GI: +BS, NT, no distention Skin: Warm, dry Neuro: Cranial nerves II-XII grossly intact bilaterally. Motor grossly intact bilaterally. No focal deficits noted. No tremors Extremities: No edema Psych: Appropriate affect Vital Signs: Vital Signs: Last Vital Signs Temp 98.9 F 08/23/25 11:03 Pulse 88 08/23/25 11:03 Resp 16 08/23/25 11:03 BP 134/92 H 08/23/25 11:03 Pulse Ox 96 08/23/25 11:03 O2 Del Method Room Air 08/23/25 11:03 BMI result Body Mass Index 27.4 DS: Data Data Completed and Pending Labs on day of discharge: Laboratory Results - last 24 hr 08/22/25 08/22/25 08/23/25 15:53 21:01 07:18 POC Glucose 266 H 302 H 289 H 08/23/25 11:02 POC Glucose 313 H Preliminary micro results at discharge 08/20/25 17:40 Blood Culture - Preliminary Blood - Venous No growth after 48 hours. 08/20/25 17:40 Blood Culture - Preliminary Blood - Venous No growth after 48 hours. Discharge Plan Discharge Anticipated Discharge Date/Time: 08/23/25 14:02 Patient Disposition: Home, Self-Care Discharge Diagnosis: Seizure-like activity Referrals: [facility] [Provider Group, Addiction Medicine] - 08/27/25 Referral Note: Please attend your appointment on Wednesday08/27/2025 @ 2:30pm. Problems: Alcohol withdrawal seizure Physician,Unknown J [Primary Care Provider, Medical] - 1 Week Discharge Medications: New amlodipine 5 mg tablet 5 mg PO DAILY Qty: 30 0RF Rx Instructions: Take one tablet daily for hypertension Continued metformin 500 mg tablet extended release 24 hr 500 mg PO BID sertraline 50 mg tablet 50 mg PO DAILY aspirin 81 mg tablet,delayed release (DR/EC) 81 mg PO DAILY Qty: 30 2RF Discontinued lisinopril 20 mg tablet 20 mg PO DAILY Discharge Orders: Discharge Order (Routine); Ordered 08/23/25 Ordered By: Naima Appiah Activity on Discharge: As tolerated Stand Alone Forms: Patient Portal Discharge page, Work/School Release Print Language: Luxembourgish Care Plan Goals: See below Health Concerns: Alcohol use disorder Alcohol withdrawal with seizure Angioedema Medication allergy Plan of Treatment: You were admitted to the hospital after experiencing witnessed seizure-like activity. Workup in the hospital was negative for epilepsy or seizure disorder, including negative EEG and MRI of brain, and seizure was thought to likely be secondary to alcohol withdrawal. You were treated with phenobarb protocol which managed your alcohol withdrawal symptoms to good effect. You were seen and evaluated by Neurology who did not think you needed to be started on any antiepileptic medications due to negative MRI and EEG. Recommendation is to follow up with Neurology outpatient and to abstain from driving until you were seizure free for 6 months has per [place] state law. For alcohol use disorder you were seen by addiction medicine and has had referrals to outpatient services. Your hospital stay was complicated by an allergic reaction with lip swelling and facial discomfort under eyes and nose, likely caused by medication. You were given antihistamines and steroids resolution of the symptoms. -- stop taking lisinopril as you now maybe allergic to this medication. You will instead be started on amlodipine 5 mg daily for hypertension. Please follow up with your PCP for management and monitoring of your blood pressure. -- you may also be allergic to lamotrigine and/or naltrexone. Please do not take these medications until you has been cleared by an technical customer support specialist. -- follow up with your PCP in 1 week for monitoring of blood pressure as well as referral to an technical customer support specialist for allergy testing. -- your strongly encouraged to abstain from alcohol use, and to use whatever social, community, and familial support you can in order to maintain her sobriety. Please follow up with outpatient services that has been arranged for you -- please immediately returned to the emergency department if you are experiencing any lip or facial swelling Assessment: See discharge summary Patient Instructions: Amlodipine (By mouth)
== END 2025-08-23 14:48 | disposition home or self-care (01) | DRG 775 ==
LOC: HO.ED 17:48 → HO.EDOVER 19:20 → HO.IMC 19:26
PROVIDERS: Admitting Provider Hospitalist; Emergency Provider Emergency Medicine; Visit Provider Student in an Organized Health Care Education/Training Program
DX: F10.239 Alcohol dependence with withdrawal, unspecified (principal); G93.41 Metabolic encephalopathy; E87.21 Acute metabolic acidosis; K70.9 Alcoholic liver disease, unspecified; F39 Unspecified mood [affective] disorder; R56.9 Unspecified convulsions; E11.9 Type 2 diabetes mellitus without complications; E78.5 Hyperlipidemia, unspecified; T78.3XXA Angioneurotic edema, initial encounter; T50.905A Adverse effect of unspecified drugs, medicaments and biological substances, initial encounter; I10 Essential (primary) hypertension; Z79.82 Long term (current) use of aspirin; Z79.84 Long term (current) use of oral hypoglycemic drugs; Z79.899 Other long term (current) drug therapy
CPT/HCPCS: 36415; 70450; 70553; 71045; 74177; 80053; 80307; 81001; 82248; 82272; 82947; 83605; 83690; 83735; 85025; 85610; 87040; 93005; 95816; 99285; J0696; J1200; J1308; J1650; J2470; J2560; J2919; Q9967; S9485

== ENCOUNTER → 2025-08-20 15:36 | Outpatient (BNV) | payer MEDICAID, SELFPAY | PROVIDERS: Admitting Provider Hospitalist; Emergency Provider Emergency Medicine; Visit Provider Internal Medicine | DX: R00.0 Tachycardia, unspecified (principal) | CPT/HCPCS: 93010 ==

== ENCOUNTER → 2025-08-20 16:22 | Outpatient (BNV) | payer MEDICAID, SELFPAY | PROVIDERS: Emergency Provider Emergency Medicine; Visit Provider Specialist | DX: Z03.89 Encounter for observation for other suspected diseases and conditions ruled out (principal) | CPT/HCPCS: 71045 ==

== ENCOUNTER 2025-08-20 19:19 | Outpatient (BNV) | payer MEDICAID, SELFPAY | END 2025-08-21 14:32 | PROVIDERS: Admitting Provider Hospitalist; Emergency Provider Emergency Medicine; Visit Provider Radiology Diagnostic Radiology | DX: R56.9 Unspecified convulsions (principal); G31.9 Degenerative disease of nervous system, unspecified; J32.0 Chronic maxillary sinusitis; J32.2 Chronic ethmoidal sinusitis | CPT/HCPCS: 70553 ==

== ENCOUNTER → 2025-08-20 19:19 | Outpatient (BNV) | payer OTHER, SELFPAY | PROVIDERS: Admitting Provider Hospitalist; Emergency Provider Emergency Medicine; Visit Provider Nurse Practitioner Psychiatric/Mental Health | DX: F10.20 Alcohol dependence, uncomplicated (principal) | CPT/HCPCS: 99232 ==

== ENCOUNTER → 2025-08-20 19:19 | Outpatient (BNV) | payer MEDICAID, SELFPAY | PROVIDERS: Admitting Provider Hospitalist; Emergency Provider Emergency Medicine; Visit Provider Nurse Practitioner | DX: R56.9 Unspecified convulsions (principal) | CPT/HCPCS: 95816; 99222 ==

== ENCOUNTER → 2025-08-20 19:19 | Outpatient (BNV) | payer MEDICAID, SELFPAY | PROVIDERS: Admitting Provider Hospitalist; Emergency Provider Emergency Medicine; Visit Provider Student in an Organized Health Care Education/Training Program | DX: R56.9 Unspecified convulsions (principal) | CPT/HCPCS: 99233 ==

== ENCOUNTER 2025-08-27 14:25 | Outpatient (AMB) | payer MEDICAID, SELFPAY ==
[2025-08-27 14:47] VITALS: BP 130/70; PULSE 68; O2SAT 97
--- NOTE | 2025-08-27 14:47 | A.OFFVIS_ITS ---
Vital Signs 08/27/25 14:47 Weight 172 lb BP 130/70 Pulse 68 Pulse Oximetry (%) 97 Intake Visit Reasons: MAT Intake Allergies lisinopril Allergy (Severe, Verified 08/27/25 14:48) Angioedema Penicillins (PENICILLINS) Allergy (Mild, Verified 08/27/25 14:48) RASH lamotrigine Allergy (Verified 08/27/25 14:48) Angioedema naltrexone Allergy (Verified 08/27/25 14:48) Angioedema sildenafil (Viagra) Adverse Reaction (Unknown, Verified 08/27/25 14:48) flush, headaches PENICILLIN Allergy (Unknown, Uncoded 08/27/25 14:48) rash HPI Comments Details: A 55-year-old Danish-speaking male presents for a MAT intake r/t AUD, reports drinking an average of for nips of whiskey 5-6 days per week. Began drinking at the age of 19 to date with intermittent periods of sobriety ranging from 3 months to 3 years. Denies use of opiates, does acknowledge intermittent use of cocaine. Denies smoking cigarettes and cannabis use. Lives alone and works part-time, recently from partner. Reports experiencing angioedema with naltrexone. [facility] Medical History Type 2 diabetes mellitus Social History Household Members: None Housing: Other Housing Other:: renting a room Do you presently have visiting nurse or other home services: No Alcohol intake: current Alcohol intake frequency: 3 or more drinks per day Alcohol type: hard liquor Patient Tobacco Use Status: Never used Tobacco e-Cigarette/Vaping Use: Never Used Substance Use Type: Crack/Cocaine service: No Review of Systems Const All systems reviewed & are unremarkable except as noted in HPI and below Physical Exam Vital Signs: Last Vital Signs Pulse 68 08/27/25 14:47 BP 130/70 08/27/25 14:47 Pulse Ox 97 08/27/25 14:47 Const General: cooperative Results AMB 14 Panel Urine Drug Screen Urine Marijuana (THC) Negative Last Edit by Jose Smith CMA on 5 15:00 Urine Cocaine Positive Last Edit by Jose Smith CMA on 08/27/25 15:00 Urine Morphine Negative Last Edit by Jose Smith, NET APPLICATION SUPPORT SPECIALIST on 08/27/25 15:00 Urine Methamphetamine Negative Last Edit by Jose Smith, NET APPLICATION SUPPORT SPECIALIST on 5 15:00 Urine Amphetamine Negative Last Edit by Jose Smith, NET APPLICATION SUPPORT SPECIALIST on 08/27/25 15 :00 Urine Benzodiazepine Negative Last Edit by Jose Smith, NET APPLICATION SUPPORT SPECIALIST on 08/27/25 15:00 Urine Barbiturates Positive Last Edit by Jose Smith, NET APPLICATION SUPPORT SPECIALIST on 08/27/25 15:00 Urine Methadone Negative Last Edit by Jose Smith, NET APPLICATION SUPPORT SPECIALIST on 08/27/25 15:0 0 Urine Buprenorphine Negative Last Edit by Jose Smith, NET APPLICATION SUPPORT SPECIALIST on 08/27/25 15:00 Urine Tricyclic Antidepressant Positive Last Edit by Jose Smith, TIFF o n 08/27/25 15:00 Urine MDMA Negative Last Edit by Jose Smith, NET APPLICATION SUPPORT SPECIALIST on 08/27/25 15:00 Urine Oxycodone Negative Last Edit by Jose Smith, NET APPLICATION SUPPORT SPECIALIST on 08/27/25 15:0 0 Urine Phencyclidine Negative Last Edit by Jose Smith, TIFF on 08/27/25 15:00 Urine Propoxyphene Negative Last Edit by Jose Smith, TIFF on 08/27/25 15:00 Assessment & Plan Assessment & Plan (1) Alcohol use disorder: Code(s): F10.90 - Alcohol use, unspecified, uncomplicated Category: Medical Plan The plan of care is to start on acamprosate 333 mg 2 tablets 3 times per day, thiamine 100 mg, and folic acid 1 mg daily. Education provided re: acamprosate, thiamine, and folic acid including purpose, general medication information, and side effects. Risk reduction activities discuss to minimize alcohol consumption and cocaine use. Information and packet provided with community resources. Patient accepted referrals for a peer chemical recovery operator and [facility] for mental services. Follow-up in 1 month or sooner if needed. Orders: Orders: Orders AMB 14 Panel Urine Drug Screen Today Z51.81 - Encounter for therapeutic drug level monitoring Medications: New acamprosate Take 2 tablets 3 times per day 666 mg (2 x 333 mg) PO TID 180 tabs 0RF 30 days folic acid One tablet daily 1 mg PO DAILY 90 tabs 0RF 90 days thiamine mononitrate (vit B1) One tablet daily 100 mg PO DAILY 90 tabs 0RF 90 days Patient Instructions: - Start on acamprosate, thiamine, and folic acid as prescribed. - Engage in risk reduction activities to minimize consumption alcohol and cocaine use. - Follow-up with community resources to support recovery process. - Follow-up in 1 month or sooner if needed. - Call with questions, concerns, or to report side effects/new onset of symptoms to [facility]. - The patient verbalized understanding and agreed with plan of care. Coding Level of Care Code New Pt Level 3 (04529) Diagnoses Alcohol use disorder F10.90
== END 2025-08-27 15:07 | disposition home or self-care (01) ==
LOC: HO.HCC 14:25
PROVIDERS: Visit Provider Clinical Nurse Specialist Psychiatric/Mental Health
DX: F10.90 Alcohol use, unspecified, uncomplicated (principal); Z51.81 Encounter for therapeutic drug level monitoring
CPT/HCPCS: 99203

== ENCOUNTER → 2025-08-27 14:25 | Outpatient (BNVA) | payer MEDICAID, SELFPAY | PROVIDERS: Visit Provider Clinical Nurse Specialist Psychiatric/Mental Health | DX: F10.90 Alcohol use, unspecified, uncomplicated (principal); Z51.81 Encounter for therapeutic drug level monitoring | CPT/HCPCS: 80307; 99212 ==

== ENCOUNTER 2025-09-13 13:25 | Outpatient (REF) | payer MEDICAID, SELFPAY ==
[2025-09-13 16:21] LABS: MANUAL DIFF FLAG NO
[2025-09-13 16:36] LABS: Hematocrit 39.8 % (42.0-52.0); Hemoglobin 13.8 g/dl (14.0-18.0); Imm Gran Abs Auto 0.05 X10*3/uL (0.00-0.03); Imm Gran Pct Auto 0.6 % (0.0-0.4); Lymphocytes Absolute Auto 1.6 X10*3/uL (1.2-4.9); Mean Corpuscular HGB Conc 34.7 g/dl (31.0-36.0); Mean Corpuscular Hemoglobin 26.1 pg (27.0-33.0); Mean Corpuscular Volume 75.4 fL (80.0-98.0); NRBC Abs Auto 0.000 X10*3/uL (0.0-0.012); NRBC Pct Auto 0.0 /100WBC (0.0-0.2); Platelet Count 162 X10*3/uL (160-400); Red Blood Count 5.28 X10*6/uL (4.60-5.80); White Blood Count 7.8 X10*3/uL (4.8-10.8)
[2025-09-13 16:38] LABS: Alanine Aminotransferase 33 U/L (0-40); Albumin Level 4.9 g/dL (3.5-5.0); Alkaline Phosphatase 67 U/L (39-117); Anion Gap 19 (12-20); Aspartate Amino Transferase 50 U/L (5-37); Blood Urea Nitrogen 14 mg/dL (9-16); Calcium 10.1 mg/dL (8.4-10.2); Carbon Dioxide 26 mmol/L (22-29); Chloride 96 mmol/L (96-108); Estimated Glomerular Filt Rate > 60; Potassium 3.9 mmol/L (3.3-5.1); Sodium 137 mmol/L (135-145); Total Protein 8.2 g/dL (6.5-8.0)
== END 2025-09-13 13:26 ==
LOC: HO.HHCL 13:25
PROVIDERS: PCP Nurse Practitioner Family; Visit Provider Nurse Practitioner Family
DX: F10.229 Alcohol dependence with intoxication, unspecified (principal)
CPT/HCPCS: 36415; 80053; 85025